=== PATIENT | female | born 1955 | race African-American/Black ===

== ENCOUNTER → 2017-01-02 | Outpatient (CLI) | payer OTHER ==
[~2017-01-02] MED LIST: AMLO-147 PO; ASPI-664 PO; BUPR1PAT10 TD; DOCU-144 PO; FOLI-49 PO; GABA-526 PO; HYDR-762 PO; HYDR25TA6 PO; LEVO500T72 PO; TOPI50TA5 PO
--- NOTE | 2017-01-02 17:56 | RADRPT ---
PROCEDURE: XR Right Foot. CLINICAL INDICATION: Right foot pain. TECHNIQUE: Three views. Frontal, lateral, and oblique. COMPARISON: None. FINDINGS: There has been amputation through the second metatarsal phalangeal joint and fourth metatarsal phala ngeal joint with absence of the second and fourth toes. There has been prior surgery of the first m etatarsal with 2 screws and extensive callus formation and mild deformity. There is hammertoe defor mity of the first and third toes. There is no fracture or dislocation. There is diffuse soft tissue swelling. The articular surfaces are intact. There is a plantar calcaneal spur. There is no lytic or blastic lesion. IMPRESSION: 1. Amputation of the second and fourth toes. 2. Prior surgery of the first metatarsal. 3. Hammertoe deformity of the first and third toes. 4. Diffuse soft tissue swelling. 5. Plantar calcaneal spur. 6. No lytic lesion. RPTAT: QQ .Mayur Dash MD, MD Date Time Electronically viewed and signed by .Mayur Dash MD, on 01/02/2017 17:56 .R/
--- NOTE | 2017-01-02 17:57 | RADRPT ---
PROCEDURE: XR Right Ankle. CLINICAL INDICATION: Right ankle pain. TECHNIQUE: 3 views. Frontal, lateral, and oblique. COMPARISON: None. FINDINGS: There is no fracture or dislocation. There is diffuse soft tissue swelling. There is a plantar calcaneal spur. Articular surfaces are intact. There is no lytic or blastic lesion. There is no radiopaque foreign body. IMPRESSION: 1. Diffuse soft tissue swelling. 2. Plantar calcaneal spur. 3. Otherwise normal images of the right ankle. RPTAT: QQ .Mayur Dash MD, MD Date Time Electronically viewed and signed by .Mayur Dash MD, MD on 01/02/2017 17:57 .R/
== END | disposition home or self-care (01) ==
LOC: RAD 13:06
PROVIDERS: ATTEND Podiatrist Foot & Ankle Surgery
DX: M25.571 Pain in right ankle and joints of right foot (principal); M77.31 Calcaneal spur, right foot; M79.671 Pain in right foot
CPT/HCPCS: 73630

== ENCOUNTER 2017-02-18 11:15 | Inpatient (IN) | payer OTHER ==
[~2017-02-18] VITALS: Ht 170.2 cm; Wt 70.0 kg
--- NOTE | 2017-02-18 12:35 | ERD ---
ER Documentation Chief Complaint Date/Time DATE: 02/18/17 TIME: 12:31 Chief Complaint r. "foot infection", hx of cancer w low wbc count, mask provided HPI Patient is a 61-year-old female with history of metastatic breast cancer on chemotherapy, with history of amputation of second and fourth toes on the right foot due to osteomyelitis several years ago, who presents with 3 weeks of skin changes to the right third toe. She states that initially there is an area that appeared black, and the nail appeared to be from the nail bed. She reports that there is a small amount of purulent drainage. She was treated for 1 week with antibiotics, and states that the toe was improving, but now states that it appears to not be continuing to improve. She denies fever, denies discharge for the last week. She denies pain. She is being followed by a volleyball assembler who she last saw 1 month ago. She does not currently have a follow -up appointment scheduled. ROS All systems reviewed and are negative except as per history of present illness. Medications Home Meds Reported Medications Letrozole* (Letrozole*) 2.5 Mg Tablet, 2.5 MG PO DAILY, TAB 02/18/17 Palbociclib (Ibrance) 75 Mg Capsule, 75 MG PO DAILY, #21 02/18/17 Fentanyl Patch* (Duragesic Patch*) 75 Mcg/Hr Transdermal Patch, 1 PATCH TD Q72H , PATCH 02/18/17 Aspirin* (Aspirin* EC) 81 Mg Tablet.dr, 81 MG PO DAILY, TAB 06/10/16 Amlodipine Besylate* (Amlodipine Besylate*) 10 Mg Tablet, 10 MG PO DAILY 07/21/11 Discontinued Reported Medications Topiramate* (Topiramate*) 50 Mg Tablet, 50 MG PO QPM, TAB 06/10/16 Buprenorphine (Butrans) 1 Each Patch.tdwk, 1 EACH TD WEEKLY 06/10/16 Folic Acid* (Folic Acid*) 1 Mg Tablet, 1 MG PO DAILY, TAB 06/10/16 Hydrochlorothiazide (Hydrochlorothiazide) 25 Mg Tablet, 25 MG PO DAILY, TAB 08/19/14 Gabapentin* (Gabapentin*) 600 Mg Tablet, 1200 MG PO TID 07/21/11 Discontinued Scripts Docusate Sodium* (Colace*) 100 Mg Capsule, 100 MG PO DAILY, #30 CAP Hold for diarrhea Prov:SANTOS BLAIR [employer]INA SUBSPECIALIST 06/19/16 Hydrocodone Bit-Acetaminophen* ([place]*) 10-325 Mg Tablet, 1 TAB PO Q6H Y for PAIN, #40 TAB Prov:SANTOS BLAIR RET[employer] SUBSPECIALIST 06/19/16 Levofloxacin* (Levaquin*) 500 Mg Tablet, 500 MG PO DAILY@06 for 60 Days, TAB Prov:SANTOS BLAIR RETINA SUBSPECIALIST 06/19/16 Allergies Allergies: Coded Allergies: Penicillins (Verified Allergy, Unknown, SWELLING, 02/18/17) PMhx/Soc Past medical history: Metastatic breast cancer, osteomyelitis of the right foot , hypertension Past surgical history: Amputation of right second and third toes, mastectomy Social history: No alcohol or tobacco History of Surgery: Yes (BREAST CA met to liver,toe amputations ) Anesthesia Reaction: No Hx Neurological Disorder: No Hx Respiratory Disorders: No Hx Cardiac Disorders: Yes (HTN, CHV) Hx Psychiatric Problems: No Hx Miscellaneous Medical Probl: No Hx Alcohol Use: No Hx Substance Use: No Hx Tobacco Use: No Smoking Status: Never smoker FmHx Family History: No coronary disease, No diabetes Physical Exam Vitals Vital Signs Date Time Temp Pulse Resp B/P Pulse Ox O2 Delivery O2 Flow Rate FiO2 02/18/17 20:15 69 19 138/87 100 Room Air 02/18/17 18:35 79 18 169/96 99 Room Air 02/18/17 15:30 106 20 174/64 98 Mask 02/18/17 13:30 104 20 105/64 100 Mask 02/18/17 11:24 97.1 99 20 181/87 100 Physical Exam Const: Alert, no acute distress Head: Atraumatic Eyes: Normal Conjunctiva, no pallor, no icterus ENT: Normal External Ears, Nose and Mouth. Moist mucous membranes Neck: Full range of motion. No meningismus. Resp: Clear to auscultation bilaterally, no wheeze, no rales Cardio: Regular rate and rhythm, no murmurs Abd: Soft, non tender, non distended. Skin: No petechiae or rashes Back: No midline or flank tenderness Ext: No cyanosis, or edema. Amputation of second and fourth digits of the right foot, third digit with thickened nail slight skin color change to the distal pad, abrasion of skin to the dorsal proximal digit. No erythema, no edema, no signs of gangrene, no eschar, no discharge. No warmth. 2+ DP pulse. Neur: Awake and alert, cranial nerves II through XII intact bilaterally. Psych: Normal Mood and Affect Result Diagram: 02/18/17 1700 02/18/17 1315 Results 24 hrs Laboratory Tests Test 02/18/17 13:15 02/18/17 17:00 Erythrocyte Sedimentation Rate 20mm/Hr Prothrombin Time 12.7Sec Prothrombin Time Ratio 1.0 INR International Normalized Ratio 0.95 Activated Partial Thromboplast Time 28.6Sec Sodium Level 141mmol/L Potassium Level 4.3mmol/L Chloride Level 103mmol/L Carbon Dioxide Level 30mmol/L Anion Gap 12 Blood Urea Nitrogen 8mg/dl Creatinine 0.58mg/dl Glucose Level 120mg/dl Calcium Level 9.1mg/dl White Blood Count 1.710^3/ul Red Blood Count 3.9910^6/ul Hemoglobin 12.8g/dl Hematocrit 37.4% Mean Corpuscular Volume 93.7fl Mean Corpuscular Hemoglobin 32.1pg Mean Corpuscular Hemoglobin Concent 34.2g/dl Red Cell Distribution Width 13.4% Platelet Count 7410^3/UL Mean Platelet Volume 9.9fl Neutrophils % 46.0% Lymphocytes % 47.0% Monocytes % 6.0% Basophils % 1.0% Neutrophils # 0.810^3/ul Lymphocytes # 0.810^3/ul Monocytes # 0.110^3/ul Basophils # 0.010^3/ul Platelet Estimate PLT APPEAR DECREASED Large Platelets OCCASIONAL Macrocytosis FEW Current Medications Medications (Trade) Dose Ordered Sig/Salvador Route PRN Reason Start Time Stop Time Status Last Admin Dose Admin Oxycodone/ Acetaminophen (Percocet (5/ 325)) 1 tab ONCE ONCE PO 02/18/17 20:30 02/18/17 20:31 DC 02/18/17 20:25 Lidocaine (Xylocaine 1% (Mpf)) 5 ml ONCE ONCE SC 02/18/17 21:00 02/18/17 21:01 Procedures/MDM MDM: Patient is a 61-year-old female with history of peripheral neuropathy due to chemotherapy, history of amputation of second and fourth toes on the right foot due to osteomyelitis. She reports skin changes to the third toe for the last 3 weeks. She was treated with a course of oral antibiotics, but did not improve. There is no fever or signs of cellulitis on exam. ESR is not elevated , but x-ray was suggestive of osteomyelitis, so MRI was performed and confirms the diagnosis. This is likely a subacute or chronic osteomyelitis given the time course and appearance on exam. The patient was difficult to obtain IV access on due to thick skin, small blood vessels, proximity to artery, and lymphedema of the right arm. Attempts were made to place an ultrasound-guided peripheral line in the ER, but was unsuccessful. The patient will be admitted for further workup and treatment, will likely need PICC line for IV antibiotics , and may require amputation of the digit. Care was endorsed to Dr. Worley who will speak with the admitting physician. Departure Diagnosis: Primary Impression: Osteomyelitis of toe of right foot Additional Impressions: Leukopenia Leukopenia type: unspecified Qualified Code: D72.819 - Leukopenia, unspecified type Thrombocytopenia Condition: Stable KATRINA CASTRO MD Feb 18, 2017 12:35
[2017-02-18] MEDS ORDERED: PALB75CA PO (12:56)
[2017-02-18] MEDS ORDERED: DUR75P TD (12:56)
[2017-02-18] MEDS ORDERED: LETR2.5T PO (13:06)
--- NOTE | 2017-02-18 13:27 | RADRPT ---
PROCEDURE: XR Right Third Toe. CLINICAL INDICATION: Right third toe pain. Osteomyelitis. TECHNIQUE: Three views of the the right third toe are available for review COMPARISON: Right foot radiographs dated 01/02/2017. FINDINGS: There is lysis of the terminal tuft of the third distal phalanx consistent with osteomyelitis. Ther e has been amputation of the second and fourth toes. There is diffuse soft tissue swelling of the third toe. The soft tissues are otherwise normal. Articular surfaces are intact. There is no radiopaque foreign body. IMPRESSION: 1. Lysis of the terminal tuft of the third distal phalanx consistent with osteomyelitis. Overlying soft tissue swelling. 2. Amputation of the second and fourth toes. RPTAT: QQ .Mayur Dash MD, MD Date Time Electronically viewed and signed by .Mayur Dash MD, on 02/18/2017 13:27 .R/
[2017-02-18 14:12] LABS: ADD SCAN DIFF NO
[2017-02-18 14:17] LABS: INR 0.95; PROTIME 12.7 Sec (12.2-14.2)
[2017-02-18 14:18] LABS: PARTIAL THROMBOPLASTIN TIME 28.6 Sec (25.0-35.0)
[2017-02-18 14:22] LABS: CALCIUM 9.1 mg/dl (8.4-10.2); CREATININE 0.58 mg/dl (0.44-1.00); POTASSIUM 4.3 mmol/L (3.5-5.1)
[2017-02-18 15:48] LABS: ABNORMAL IP MESSAGE 1; HEMATOCRIT 37.4 % (37.0-47.0); HEMOGLOBIN 12.8 g/dl (12.0-16.0); MEAN CORPUSCULAR HEMOGLOBIN 32.1 pg (29.0-33.0); MEAN CORPUSCULAR HGB CONC 34.2 g/dl (32.0-37.0); MEAN CORPUSCULAR VOLUME 93.7 fl (82.0-101.0); MEAN PLATELET VOLUME 9.9 fl (7.4-10.4); RED BLOOD COUNT 3.99 10^6/ul (4.20-5.40); RED CELL DISTRIBUTION WIDTH 13.4 % (11.5-14.5)
[2017-02-18 17:32] LABS: LYMPHOCYTES # 0.8 10^3/ul (0.8-2.9); MONOCYTE # 0.1 10^3/ul (0.3-0.9); NEUTROPHIL # 0.8 10^3/ul (1.6-7.5)
[2017-02-18 17:47] LABS: PLATELET ESTIMATE PLT APPEAR DECREASED
--- NOTE | 2017-02-18 20:11 | RADRPT ---
PROCEDURE: MR right foot. CLINICAL INDICATION: Pain and swelling. Clinical concern for osteomyelitis TECHNIQUE: 1.5 Paola scanner: Sagittal T1/inversion recovery, coronal T1/proton-density fat satura tion, axial T1/proton-density fat saturation. Examination is dedicated to evaluating the right foref oot COMPARISON: X-ray series 02/18/2017. FINDINGS: Osseous structures: The visualized tarsal bones demonstrate severe osteoarthrosis involving the mid foot between the middle and lateral cuneiforms in the bases of the second and third metatarsals. Th e visualized cuboid and navicular bones are intact. The metatarsal of the great toe demonstrates po stoperative change with susceptibility artifact consistent with hardware, hallux valgus deformity an d severe narrowing of the metatarsal phalangeal joint of the great toe and interphalangeal joint of this digit are present. Degenerative narrowing between the first metatarsal head and the sesamoid galo michael is moderate to severe. The second metatarsal is intact with amputation of the second phalanges a gain seen. The third metatarsal is intact with degenerative narrowing of the metatarsal phalangeal and proximal interphalangeal joints. The most striking finding is abnormal cortical irregularity an d truncation involving the third distal phalanx with low at T1 and high T2 signal consistent with bone marrow edema, the bony destruction corresponding to the x-ray findings The middle phalanx has normal signal intensity and distal interphalangeal joint shows no evidence of hyperintense fluid. G roove the fourth metatarsal appears intact, the fourth phalanges have been surgically resected. The right fifth metatarsal and fifth phalanges demonstrate normal signal intensity. Soft tissues: Hyperintense T1 signal involving the intrinsic muscular the foot is most likely relat ed to chronic atrophy. There is some hyperintense T2 signal within the plantar soft tissues predomi nately at the third digit, the dorsal metatarsal. There is additional subcutaneous edema, bright T2 signal, surrounding the distal phalanx of the third toe. There is no subcutaneous collection to roldan ggest an abscess. No obvious ligament or tendinous tears are identified. RPTAT:HJJR IMPRESSION: 1. Abnormal bone marrow edema and bony destruction involving the third distal phalanx of the right foot consistent with osteomyelitis with surrounding cellulitis but no evidence of extension into the distal interphalangeal joint or third middle phalanx. 2. No other areas of osteomyelitis are demonstrated. 3. Severe dorsal midfoot osteoarthrosis between the cuneiforms and metatarsal bases. 4. Postoperative changes of the first metatarsal consistent with prior osteotomy and hardware place ment with degenerative narrowing of the metatarsal phalangeal interphalangeal joints of the great to e as well as between the metatarsal head and the sesamoid bones. 5. Generalized fatty replacement of the intrinsic foot musculature consistent with severe atrophy. 6. No evidence of subcutaneous abscess. 7. Previous resection involving the phalanges of the second and fourth digits. Physician Joey Date Time Electronically viewed and signed by Physician Joey on 02/18/2017 20:11 JR/
[2017-02-18] MEDS ORDERED: OXYCODONE/ACETAMINOPHEN (5/325) TAB PO ONE (20:30)
[2017-02-18] MEDS ORDERED: CLINDAMYCIN 300 MG INJ IM ONE (21:00)
[2017-02-18] MEDS ORDERED: ACETAMINOPHEN 325 MG TAB PO PRN ×2 (21:00→23:30)
[2017-02-18] MEDS ORDERED: LIDOCAINE 1% (MPF) 5 ML VIAL SC ONE (21:00)
[2017-02-18] MEDS ORDERED: ONDANSETRON 4 MG INJ IV PRN ×2 (21:00→23:30)
[2017-02-18 21:30] VITALS: Ht 170.2 cm; Wt 70.0 kg
[2017-02-18 21:45] VITALS: BP 134/89; PULSE 98; RESP 18
[2017-02-18] MEDS ORDERED: VANCOMYCIN IV PER PHARMACY XX SCH (23:30)
[2017-02-19] MEDS: OXYCODONE/ACETAMINOPHEN (10/325) TAB PO PRN ×2 (03:49→09:26)
[2017-02-19 05:28] LABS: ADD SCAN DIFF NO
[2017-02-19 05:37] LABS: ABNORMAL IP MESSAGE 1; HEMATOCRIT 35.5 % (37.0-47.0); HEMOGLOBIN 11.8 g/dl (12.0-16.0); MEAN CORPUSCULAR HEMOGLOBIN 31.6 pg (29.0-33.0); MEAN CORPUSCULAR HGB CONC 33.2 g/dl (32.0-37.0); MEAN CORPUSCULAR VOLUME 95.2 fl (82.0-101.0); MEAN PLATELET VOLUME 10.9 fl (7.4-10.4); PLATELET COUNT 72 10^3/UL (140-415); RED BLOOD COUNT 3.73 10^6/ul (4.20-5.40); RED CELL DISTRIBUTION WIDTH 13.5 % (11.5-14.5); WHITE BLOOD COUNT 1.5 10^3/ul (4.8-10.8)
[2017-02-19 05:46] LABS: ALBUMIN 3.9 g/dl (3.3-4.9); ALBUMIN/GLOBULIN RATIO 1.02; BILIRUBIN,INDIRECT 0.6 mg/dl (0-1.1); BILIRUBIN,TOTAL 0.6 mg/dl (0.2-1.3); CALCIUM 8.9 mg/dl (8.4-10.2); CREATININE 0.62 mg/dl (0.44-1.00); POTASSIUM 3.5 mmol/L (3.5-5.1); TOTAL PROTEIN 7.7 g/dl (6.1-8.1)
--- NOTE | 2017-02-19 07:00 | HP ---
Date/Time of Note Date/Time of Note DATE: 02/19/17 TIME: 06:51 Assessment/Plan VTE Prophylaxis VTE Prophylaxis Intervention: heparin Lines/Catheters Urinary Cath still in place: No Assessment/Plan Assessment/Plan 1. Right Third Phalax osteomyelitis - Broad spectrum abx. note pt is allergic to PCN - Ortho and ID consult - Pain mgmt 2. Metastatic Breast Cancer: on chemo - cont out pt f/u. Will notify Oncologist 3. HTN: not at goal - Cont med and adjust as needed 4. Neuropenia - Precaution - neupogen 5. Thrombocytopenia - No sign of active bleeding - transfuse as needed, especially if plan for surgical intervention HPI/ROS Admit Date/Time Admit Date/Time Feb 18, 2017 at 20:42 Hx of Present Illness Patient is a 61-year-old female with history of HTN, DL, lower ext Osteo, metastatic breast cancer on chemotherapy, with history of amputation of second and fourth toes on the right foot due to osteomyelitis several years ago, who presents with 3 weeks of skin changes to the right third toe. She states that initially there is an area that appeared black, and the nail appeared to be from the nail bed. She reports that there is a small amount of purulent drainage. She was treated for 1 week with antibiotics, and states that the toe was improving, but now states that it appears to not be continuing to improve. She denies fever, denies discharge for the last week. She denies pain. She is being followed by a line patroller who she last saw 1 month ago. IN ER, MRI showed, osteomyelitis of third phalax of right foot. PMH/Family/Social Past Medical History Medical History: high cholesterol, hypertension Past Surgical History Past Surgical Hx: other (toe amputations) Social History Alcohol Use: none Smoking Status: Never smoker Drug Use: none Exam/Review of Systems Vital Signs Vitals Vital Signs Date Time Temp Pulse Resp B/P Pulse Ox O2 Delivery O2 Flow Rate FiO2 02/18/17 21:45 98.2 98 18 134/89 Room Air 02/18/17 21:07 100 Intake and Output 02/18/17 02/18/17 02/19/17 14:59 22:59 06:59 Intake Total 120 ml Balance 120 ml Exam Constitutional: alert, oriented, well developed Eyes: EOMI, PERRL Respiratory: clear to auscultation, normal air movement Cardiovascular: nl pulses, regular rate and rhythm Gastrointestinal: non-tender, soft Extremities: other (Amputation of second and fourth digits of the right foot, third digit with thickened nail slight skin color change to the distal pad, abrasion of skin to the dorsal proximal digit. No erythema, no edema, no signs of gangrene, no eschar, no discharge) Labs Result Diagram: 02/19/17 0455 02/19/17 0455 Medications Medications Current Medications Fentanyl (Duragesic 75 Mcg/Hr Patch) 1 patch Q72H TRANSDERM ; Start 02/19/17 at 09:00 Oxycodone/ Acetaminophen (Endocet (10/ 325)) 1 tab Q6H PRN PO PAIN Last administered on 02/19/17t 03:49; Admin Dose 1 TAB; Start 02/18/17 at 23:30 Amlodipine Besylate (Norvasc) 10 mg DAILY PO ; Start 02/19/17 at 09:00 Letrozole (Femara) 2.5 mg DAILY PO ; Start 02/19/17 at 09:00 Ondansetron HCl (Zofran Inj) 4 mg Q6H PRN IV NAUSEA AND/OR VOMITING; Start 10/25 at 23:30 Heparin Sodium (Porcine) (Heparin (5000 Units/0.5 ml)) 5,000 unit BID SC ; Start 02/19/17 at 09:00 Morphine Sulfate (morphine) 3 mg Q4H PRN IV PAIN; Start 02/18/17 at 23:30 Acetaminophen 650 mg 650 mg Q6H PRN PO PAIN AND OR ELEVATED TEMP; Start at 23:30 Aztreonam (Azactam 1gm/NS (Pmx)) 50 ml @ 100 mls/hr Q8 IVPB ; Start 02/19/17 at 14:00 EDMAR JARQUIN MD Feb 19, 2017 07:00
[2017-02-19 08:27] VITALS: BP 149/77; RESP 16
[2017-02-19] MEDS: AMLODIPINE 10 MG TAB PO SCH (08:54)
[2017-02-19] MEDS: HEPARIN 5,000 UNIT/0.5 ML VIAL SC SCH ×2 (08:55→21:00)
[2017-02-19] MEDS ORDERED: FENTAnyl PATCH 75 MCG/HR TRANSDERM SCH (09:00)
[2017-02-19] MEDS: LETROZOLE 2.5 MG TAB PO SCH (09:08)
[2017-02-19] MEDS ORDERED: LIDOCAINE 1% (MPF) 5 ML VIAL SC ONE (10:00)
[2017-02-19] MEDS ORDERED: ALPRAZOLAM 0.25 MG TAB PO ONE (10:54)
[2017-02-19] MEDS ORDERED: LORAZEPAM 2 MG INJ IV ONE (11:00)
--- NOTE | 2017-02-19 11:31 | PN ---
Date/Time of Note Date/Time of Note DATE: 02/19/17 TIME: 11: Assessment/Plan VTE Prophylaxis VTE Prophylaxis Intervention: contraindicated (Potential surgery amputation potential surgery amputation) Lines/Catheters Urinary Cath still in place: No Assessment/Plan Chief Complaint/Hosp Course S: 02/19 Rt 3rd toe pain recent infection. No generalized toxicity. No recent injury. Has chr neuropathy-possibly post chemo. Recently stopped 1 of her chemo' s due to pancytopenia. Still on the other. O: Vss sr PE No pallor adenopathy Regr no murmur rub CTAB Bs + nt nd, no r/r/g No edema. Chr neuropathy. Rt 2/4 amp status; 3rd toe probable OM. A/P 1. Rt 3rd toe probable OM. 6 wks atb's/PICC vs amp. Stable check w podiatry/ID. 2. Chr neuropathy 3. Metastatic recurrent rest Ca. Chemo if performance status is stable. 4. Immune status questionable. May need to hold chemo 5. Past tobacco/ etoh? 6. Possible PAD 7. Anemia 8. Chr htn/DL 9. Leukopenia, watch for neutropenia Problems: Exam/Review of Systems Vital Signs Vitals Vital Signs Date Time Temp Pulse Resp B/P Pulse Ox O2 Delivery O2 Flow Rate FiO2 02/19/17 08:27 98.1 88 16 149/77 97 02/18/17 21:45 Room Air Intake and Output 02/18/17 02/18/17 02/19/17 15:00 23:00 07:00 Intake Total 120 ml Balance 120 ml Results Result Diagram: 02/19/17 0455 02/19/17 0455 Results 24 hrs Laboratory Tests Test 02/18/17 13:15 02/18/17 17:00 02/19/17 04:55 Erythrocyte Sedimentation Rate 20 Prothrombin Time 12.7 Prothrombin Time Ratio 1.0 INR International Normalized Ratio 0.95 Activated Partial Thromboplast Time 28.6 Sodium Level 141 138 Potassium Level 4.3 3.5 Chloride Level 103 102 Carbon Dioxide Level 30 30 Anion Gap 12 10 Blood Urea Nitrogen 8 7 Creatinine 0.58 0.62 Glucose Level 120 96 Calcium Level 9.1 8.9 White Blood Count 1.7 #L 1.5 L Red Blood Count 3.99 L 3.73 L Hemoglobin 12.8 11.8 L Hematocrit 37.4 35.5 L Mean Corpuscular Volume 93.7 95.2 Mean Corpuscular Hemoglobin 32.1 31.6 Mean Corpuscular Hemoglobin Concent 34.2 33.2 Red Cell Distribution Width 13.4 13.5 Platelet Count 74 L 72 L Mean Platelet Volume 9.9 # 10.9 H Neutrophils % 46.0 Lymphocytes % 47.0 Monocytes % 6.0 Basophils % 1.0 Neutrophils # 0.8 L Lymphocytes # 0.8 Monocytes # 0.1 L Basophils # 0.0 Platelet Estimate PLT APPEAR DECREASED Large Platelets OCCASIONAL Macrocytosis FEW Total Bilirubin 0.6 Direct Bilirubin 0.00 Indirect Bilirubin 0.6 Aspartate Amino Transf (AST/SGOT) 120 H Alanine Aminotransferase (ALT/SGPT) 46 Alkaline Phosphatase 93 Total Protein 7.7 Albumin 3.9 Globulin 3.80 H Albumin/Globulin Ratio 1.02 Medications Medications Current Medications Fentanyl (Duragesic 75 Mcg/Hr Patch) 1 patch Q72H TRANSDERM Last administered on 02/19/17 08:54; Admin Dose 1 PATCH; Start 02/19/17 at 09:00 Oxycodone/ Acetaminophen (Endocet (10/ 325)) 1 tab Q6H PRN PO PAIN Last administered on 02/19/17 09:26; Admin Dose 1 TAB; Start 02/18/17 at 23:30 Amlodipine Besylate (Norvasc) 10 mg DAILY PO Last administered on 02/19/17 08: 54; Admin Dose 10 MG; Start 02/19/17 at 09:00 Letrozole (Femara) 2.5 mg DAILY PO Last administered on 02/19/17 09:08; Admin Dose 2.5 MG; Start 02/19/17 at 09:00 Ondansetron HCl (Zofran Inj) 4 mg Q6H PRN IV NAUSEA AND/OR VOMITING; Start 10/25 at 23:30 Heparin Sodium (Porcine) (Heparin (5000 Units/0.5 ml)) 5,000 unit BID SC ; Start 02/19/17 at 09:00 Morphine Sulfate (morphine) 3 mg Q4H PRN IV PAIN; Start 02/18/17 at 23:30 Acetaminophen 650 mg 650 mg Q6H PRN PO PAIN AND OR ELEVATED TEMP; Start at 23:30 Aztreonam 50 ml @ 100 mls/hr Q8 IVPB ; Start 02/19/17 at 14:00 Vancomycin HCl/ Sodium Chloride (Vancocin/NS) 250 ml @ 83.333 mls/ hr ONCE IVPB ; Start 02/19/17 at 14:00; Stop 02/19/17 at 23:00 PANCHITO DOMÍNGUEZ MD Feb 19, 2017 11:31
[2017-02-19 13:45] LABS: LYMPHOCYTES # 1.3 10^3/ul (0.8-2.9); NEUTROPHIL # 0.2 10^3/ul (1.6-7.5)
[2017-02-19] MEDS: AZTREONAM 1 GM/NS (PMX) 50 ML IVPB SCH ×2 (14:00→21:25)
[2017-02-19] MEDS ORDERED: VANCOMYCIN 1.5 GM in SOD CHLORIDE 0.9% 250 ML IVPB SCH (14:00)
--- NOTE | 2017-02-19 15:14 | CONS ---
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 She now is admitted with third distal right phalanx osteomyelitis. - Tumor markers have decreased/stabilized and patient had treatment response as of CT scan 10/10/16. She was unable to tolerate PET/CT as an outpatient so plan was to repeat scan with Ativan. Will obtain CT CAP with contrast now that patient is in house, may require ativan prior once IV access has been obtained - Will repeat tumor markers - May continue etrozole while in house as letrozole should not contribute to neutropenia. - Agree with neupogen given neutropenia with osteomyelitis - Continue broad spectrum antibiotics per primary team # Depression/Anxiety - If ok with primary team, would suggest treatment for depression/anxiety - Ensure TID added for nutrition given patient's poor appetite Problems: Consultation Date/Type/Reason Admit Date/Time Feb 18, 2017 at 20:42 Date of Consultation: Feb 19, 2017 Type of Consultation: Oncology Hx of Present Illness The patient is a 61 year old female well known to me with a history of stage II ER+ breast cancer status post lumpectomy, treated at [facility] with chemotherapy with TC x 4 and radiation without hormonal therapy as she declined it at that time, then was lost to follow-up, now with metastatic ER+ breast cancer to LN and liver, on Ibrance/letrozole since 07/16/17 with multiple dose reductions of ibrance (CDK 4/6 inhibitor) due to neutropenia with recent reduction in dose then cessation of Ibrance with continuation of hormonal therapy letrozole. Tumor markers have decreased/stabilized and patient had treatment response as of CT scan 10/10/16. She was unable to tolerate PET/CT as an outpatient so plan was to repeat scan with Ativan. She now is admitted with third distal right phalanx osteomyelitis. Recently the patient has endorsed more anxiety and feeling low/depressed with decreased appetite and hopelessness. Past Medical History Medical History: high cholesterol, hypertension Past Surgical History Past Surgical Hx: other (toe amputations) Social History Alcohol Use: none Smoking Status: Never smoker Drug Use: none Exam/Review of Systems Vital Signs Vitals Vital Signs Date Time Temp Pulse Resp B/P Pulse Ox O2 Delivery O2 Flow Rate FiO2 02/19/17 08:27 98.1 88 16 149/77 97 02/18/17 21:45 Room Air Intake and Output 02/18/17 02/18/17 02/19/17 15:00 23:00 07:00 Intake Total 120 ml Balance 120 ml Exam Constitutional: alert, oriented Psych: no complaints Head: normocephalic Eyes: nl conjunctiva Neck: supple Respiratory: clear to auscultation Cardiovascular: regular rate and rhythm Gastrointestinal: non-tender, soft Neurological: RENTAL CAR FERRY DRIVER II-XII intact Results Result Diagram: 02/19/17 0455 02/19/17 0455 Results 24 hrs Laboratory Tests Test 02/18/17 17:00 02/19/17 04:55 White Blood Count 1.7 #L 1.5 L Red Blood Count 3.99 L 3.73 L Hemoglobin 12.8 11.8 L Hematocrit 37.4 35.5 L Mean Corpuscular Volume 93.7 95.2 Mean Corpuscular Hemoglobin 32.1 31.6 Mean Corpuscular Hemoglobin Concent 34.2 33.2 Red Cell Distribution Width 13.4 13.5 Platelet Count 74 L 72 L Mean Platelet Volume 9.9 # 10.9 H Neutrophils % 46.0 14.0 L Lymphocytes % 47.0 84.0 H Monocytes % 6.0 2.0 Basophils % 1.0 Neutrophils # 0.8 L 0.2 L Lymphocytes # 0.8 1.3 Monocytes # 0.1 L 0.0 L Basophils # 0.0 Platelet Estimate PLT APPEAR DECREASED Large Platelets OCCASIONAL 1+ Macrocytosis FEW Nucleated Red Blood Cells % 4.0 H Sodium Level 138 Potassium Level 3.5 Chloride Level 102 Carbon Dioxide Level 30 Anion Gap 10 Blood Urea Nitrogen 7 Creatinine 0.62 Glucose Level 96 Calcium Level 8.9 Total Bilirubin 0.6 Direct Bilirubin 0.00 Indirect Bilirubin 0.6 Aspartate Amino Transf (AST/SGOT) 120 H Alanine Aminotransferase (ALT/SGPT) 46 Alkaline Phosphatase 93 Total Protein 7.7 Albumin 3.9 Globulin 3.80 H Albumin/Globulin Ratio 1.02 Medications Medications Current Medications Fentanyl (Duragesic 75 Mcg/Hr Patch) 1 patch Q72H TRANSDERM Last administered on 02/19/17 08:54; Admin Dose 1 PATCH; Start 02/19/17 at 09:00 Oxycodone/ Acetaminophen (Endocet (10/ 325)) 1 tab Q6H PRN PO PAIN Last administered on 02/19/17 09:26; Admin Dose 1 TAB; Start 02/18/17 at 23:30 Amlodipine Besylate (Norvasc) 10 mg DAILY PO Last administered on 02/19/17 08: 54; Admin Dose 10 MG; Start 02/19/17 at 09:00 Letrozole (Femara) 2.5 mg DAILY PO Last administered on 02/19/17 09:08; Admin Dose 2.5 MG; Start 02/19/17 at 09:00 Ondansetron HCl (Zofran Inj) 4 mg Q6H PRN IV NAUSEA AND/OR VOMITING; Start 10/25 at 23:30 Heparin Sodium (Porcine) (Heparin (5000 Units/0.5 ml)) 5,000 unit BID SC ; Start 02/19/17 at 09:00 Morphine Sulfate (morphine) 3 mg Q4H PRN IV PAIN; Start 02/18/17 at 23:30 Acetaminophen 650 mg 650 mg Q6H PRN PO PAIN AND OR ELEVATED TEMP; Start at 23:30 Aztreonam 50 ml @ 100 mls/hr Q8 IVPB ; Start 02/19/17 at 14:00 Vancomycin HCl 1.5 gm/Sodium Chloride 250 ml @ 83.333 mls/ hr ONCE IVPB ; Start 02/19/17 at 14:00; Stop 02/19/17 at 23:00 Vancomycin HCl (Vancocin) 250 ml @ 125 mls/hr Q12H IVPB ; Start 02/20/17 at 02: 00 Alprazolam (Xanax) 0.25 mg BID PO ; Start 02/19/17 at 21:00 Clonidine (Catapres) 0.1 mg Q4H PRN PO ELEVATED SYSTOLIC BP; Start 02/19/17 at 12:00 CARLEEN IZAGUIRRE MD Feb 19, 2017 15:14
--- NOTE | 2017-02-19 15:53 | RADRPT ---
PROCEDURE: Ultrasound guidance for placement of needle in left upper extremity vein. CLINICAL INDICATION: Venous access. TECHNIQUE: Limited sonography of the left upper extremity was performed. Ultrasound images were recorded and s tored in the patient's medical record. COMPARISON: None. FINDINGS: The ultrasound images demonstrate a patent left upper extremity vein. The PICC line was inserted by the PICC line nurse. IMPRESSION: 1. Ultrasound guidance for a needle placement in a left upper extremity vein. 2. The left upper extremity vein is patent. RPTAT: QQ .Mayur Dash MD, MD Date Time Electronically viewed and signed by .Mayur Dash MD, MD on 02/19/2017 15:53 .R/
[2017-02-19] MEDS ORDERED: ALBUTEROL 0.083% (NEB) 2.5 MG/3 ML AMP HHN PRN (16:00)
[2017-02-19] MEDS ORDERED: hydrALAzine 20 MG INJ IV PRN (16:00)
--- NOTE | 2017-02-19 16:31 | CONS ---
DATE OF ADMISSION: 02/18/2017 DATE OF CONSULTATION: 02/19/2017 TYPE OF CONSULTATION: Infectious disease. REASON FOR CONSULTATION: Antibiotic management. HISTORY OF PRESENT ILLNESS: Abena Marino is a 61-year-old female with a number of problems, who co mes in now with right third phalanx osteomyelitis. Her past problems include: 1. Hypertension. 2. Lower extremity osteomyelitis. 3. Metastatic breast cancer, on chemotherapy. 4. History of amputation of the second and fourth toes on the right foot due to osteomyelitis sever al years ago. The patient now presents with 3 weeks of skin changes on the right third toe. She states that the a yaniv appeared black and the nail appeared to be from the nailbed. There is a small amount of purulent drainage. She was treated for 1 week with antibiotics and states that the toe was impr oving, but now it appears to be getting worse. On admission her white count was 1.5, H and H 11.8 a nd 35.5, platelet count 72,000. BUN and creatinine 7/0.62. ALLERGIES: PENICILLIN. Past problems as noted and include hypercholesterolemia and hypertension. PAST SURGICAL HISTORY: She has amputation of 2nd and 4th right toes. FAMILY HISTORY: Noncontributory. SOCIAL HISTORY: She does not smoke, drink or abuse drugs. MEDICATIONS: Per chart. REVIEW OF SYSTEMS: Noncontributory. PHYSICAL EXAMINATION: GENERAL: The patient is a well-developed, well-nourished female, who is alert, responsive, in no ac abby distress. VITAL SIGNS: Stable. She is afebrile. SKIN: Without generalized rash. HEENT: Within normal limits. NECK: Supple. LYMPH NODES: None palpable. CHEST: Decreased breath sounds at the bases. HEART: Without murmur or gallop. ABDOMEN: Soft, nontender, without organosplenomegaly or masses. EXTREMITIES: Amputation of the 2nd and 4th toes of the right foot. Third digit has a thickened damien l, some skin discoloration and abrasion to the skin. IMPRESSION AND PLAN: The patient was started on vancomycin and aztreonam. A foot MRI was done. MRI showed abnormal bone marrow edema, bony destruction involving the third distal phalanx of the right foot, consistent with osteomyelitis, with surrounding cellulitis, but no evidence of extension into the distal phalangeal joint of the third middle phalanx. IMPRESSION AND PLAN: We should continue her on antibiotic therapy, consider amputation of the dista l aspect of the third toe, since she has already had amputations of the second and fourth toes. I w ill dictate my findings to the hospitalist and to podiatry. I want to thank them for asking me to see this damian lady in consultation. Dictated By: ALONSO SANDERS MD, JD/BETSY Conf#: [id number] DID#: [id number]
[2017-02-19] MEDS: FILGRASTIM 480 MCG INJ SC SCH (17:56)
[2017-02-19] MEDS: ALPRAZOLAM 0.25 MG TAB PO SCH (20:59)
[2017-02-19 21:06] VITALS: BP 136/64; RESP 20
[2017-02-20] MEDS ORDERED: VANCOMYCIN 1 GM in NS 250 ML IVPB SCH (02:00)
[2017-02-20] MEDS: OXYCODONE/ACETAMINOPHEN (10/325) TAB PO PRN ×4 (02:12→22:44)
[2017-02-20] MEDS: AZTREONAM 1 GM/NS (PMX) 50 ML IVPB SCH ×3 (06:00→22:44)
[2017-02-20 06:34] LABS: ADD SCAN DIFF NO
[2017-02-20 06:49] LABS: ABNORMAL IP MESSAGE 1; HEMOGLOBIN 12.2 g/dl (12.0-16.0); MEAN CORPUSCULAR HEMOGLOBIN 32.2 pg (29.0-33.0); MEAN CORPUSCULAR HGB CONC 33.9 g/dl (32.0-37.0); MEAN PLATELET VOLUME 10.9 fl (7.4-10.4); PLATELET COUNT 65 10^3/UL (140-415); RED BLOOD COUNT 3.79 10^6/ul (4.20-5.40); RED CELL DISTRIBUTION WIDTH 13.5 % (11.5-14.5); WHITE BLOOD COUNT 6.6 10^3/ul (4.8-10.8)
[2017-02-20 06:50] LABS: INR 0.97; PROTIME 12.9 Sec (12.2-14.2)
[2017-02-20 07:06] LABS: CALCIUM 9.3 mg/dl (8.4-10.2); CREATININE 0.74 mg/dl (0.44-1.00); MAGNESIUM 1.5 mg/dl (1.7-2.5); PHOSPHORUS 3.7 mg/dl (2.5-4.9); POTASSIUM 4.1 mmol/L (3.5-5.1)
[2017-02-20 07:33] LABS: THYROID STIMULATING HORMONE 0.948 MIU/L (0.465-4.680)
[2017-02-20] MEDS ORDERED: LORAZEPAM 2 MG INJ IV ONE (08:00)
[2017-02-20 08:08] LABS: FOLATE 10.5 ng/ml (2.8-20.0)
[2017-02-20 08:35] VITALS: BP 156/83; RESP 20
[2017-02-20] MEDS: HEPARIN 5,000 UNIT/0.5 ML VIAL SC SCH ×2 (09:00→20:42)
[2017-02-20] MEDS: AMLODIPINE 10 MG TAB PO SCH (09:09)
[2017-02-20] MEDS: ALPRAZOLAM 0.25 MG TAB PO SCH ×2 (09:09→20:39)
[2017-02-20] MEDS: LETROZOLE 2.5 MG TAB PO SCH (09:10)
[2017-02-20 09:56] LABS: EOSINOPHILS # 0.1 10^3/ul (0.0-0.5); LYMPHOCYTES # 1.1 10^3/ul (0.8-2.9); MONOCYTE # 0.3 10^3/ul (0.3-0.9); NEUTROPHIL # 4.3 10^3/ul (1.6-7.5); PLATELET ESTIMATE PLT APPEAR DECREASED
[2017-02-20] MEDS ORDERED: LIDOCAINE 1% (MPF) 5 ML VIAL SC ONE (11:00)
--- NOTE | 2017-02-20 11:06 | CONS ---
DATE OF ADMISSION: 02/18/2017 DATE OF CONSULTATION: 02/20/2017 TYPE OF CONSULTATION: Vascular surgery consultation. HISTORY OF PRESENT ILLNESS: Ms. Marino is a 67-year-old morbidly obese patient with a plethora of m edical conditions who presented to us with recent findings of right upper extremity deep vein thromb osis that was diagnosed while she was at [facility]. It was identified the patient yao ving acute thrombosis of the right internal jugular vein, subclavian vein, axillary vein, brachial v ein, and basilic vein. Subsequently, the patient was started on anticoagulation and was given a pre scription to start the new medications. Unfortunately, the patient has not started it and had devel oped increase in her right upper extremity swelling and discomfort and presented to [facility] for further evaluation. REVIEW OF SYSTEMS: A 12-point review performed and negative except what is mentioned in the HPI. S he currently denies shortness of breath, chest pain, nausea, vomiting, fever, or chills. She denies right upper extremity discomfort, claudication, or rest pain. No numbness or tingling. PAST MEDICAL HISTORY: End-stage renal disease on dialysis, hypertension, diabetes, morbid obesity, legally blind, coronary artery disease, bilateral lower extremity venous insufficiency. PAST SURGICAL HISTORY: Appendectomy, right chest wall catheter that was placed last week, left uppe r extremity AV fistula and revisions. ALLERGIES: NO KNOWN DRUG ALLERGIES. FAMILY HISTORY: Diabetes and hypertension. SOCIAL HISTORY: Denies alcohol, tobacco, or illicit drug use currently. She was a previous smoker who quit about 30 years ago. PHYSICAL EXAMINATION: GENERAL: Alert and oriented x3, no apparent distress. HEENT: Normocephalic, atraumatic. Mucosa moist. NECK: Supple. No carotid bruit. PULMONARY: Clear to auscultation bilaterally. No crackles. CARDIOVASCULAR: S1, S2 present. No murmurs. ABDOMEN: Soft, nontender, nondistended. Bowel sounds positive. Significant truncal obesity and la rge pannus. LOWER EXTREMITIES: Unable to palpate the femoral pulse secondary to body habitus. Nonpalpable peda l pulse. Motor, sensory intact. Cap refill 3 to 4 seconds. No ulcers identified. The patient has large legs. RIGHT UPPER EXTREMITY: Large arm, palpable brachial pulse. Motor, sensory intact. Cap refill 2 to 3 seconds. Edema about 2+. She has venipuncture in the antecubital region. LEFT UPPER EXTREMITY: Large arm, palpable brachial pulse. Motor, sensory intact. Cap refill 2 to 3 seconds. ASSESSMENT AND PLAN: 1. Right upper extremity deep vein thrombosis. It seems the patient had developed a deep vein thro mbosis about a week ago that was diagnosed at [facility] when she had undergone her left upp er extremity AV fistula revision. The patient was recommended to start on anticoagulation, but it s eems that the patient may unfortunately have not been able to fill her prescription. At this point, there is no further vascular intervention needed. The patient can be continued on her anticoagulat ion to make sure that she continues that compliance once she is discharged. Optimize vascular statu s (BP meds, diet, nutrition, exercise, sugar control, and antiplatelet). Continue with anticoagulat ion as recommended and to follow with her vascular surgeon at the outside hospital who is Dr. Lindsay . 2. The patient has end-stage renal disease. The patient has left upper extremity AV fistula that h as adequate bruit and thrill present. Her surgical scars are well healed. No erythema or tendernes s, some minimal ecchymosis. Recommend the patient to follow with her vascular surgeon and for her f istula surveillance. Discussed findings, plan, and management with the patient. She understands. Thank you for allowing us to partake in the care of your patient. Please call with any questions. Dictated By: MARIA TERESA OSEI/BETSY Conf#: [id number] DID#: [id number]
--- NOTE | 2017-02-20 11:26 | CONS ---
DATE OF ADMISSION: 02/18/2017 DATE OF CONSULTATION: 02/20/2017 TYPE OF CONSULTATION: Vascular surgery. HISTORY OF PRESENT ILLNESS: Ms. Marino is a 61-year-old female known to our vascular surgery servnatacha ashraf from having seen us in our wound care clinic secondary to bilateral lower extremity atherosclerosi s and toe amputations. Unfortunately, the patient has returned to [facility] to recurrence of her metastatic disease of breast cancer which she is currently being treated for. In addition, the patient has presented with right third toe tissue loss and foot infection for which she is to be treated with antibiotics. At the moment, the patient denies shortness of breath , chest pain, nausea, vomiting, fever, or chills. The patient does mention that she has lost over 3 5 pounds since we had seen her back in June 2016 and that she on and off has some numbness and tin gling of the bilateral lower extremities. REVIEW OF SYSTEMS: A 12-point review performed and negative except what is mentioned in the HPI. PAST MEDICAL HISTORY: Entails cholesterol, hypertension, bilateral lower extremity atherosclerosis, peripheral neuropathy, metastatic breast cancer, original mass was in the right breast for which bert ashraf had undergone a lumpectomy and lymph node biopsies (questionable dissection. I do not have the fredrick holliday's record from [facility]). SOCIAL HISTORY: She had been a previous smoker in the past, not currently smoking. Denies alcohol or illicit drug use. FAMILY HISTORY: Positive for hypertension, hypercholesterolemia. PHYSICAL EXAMINATION: GENERAL: Alert and oriented x3, no apparent distress. HEENT: Normocephalic, atraumatic. PERRLA, EOMI. Mucosa moist. NECK: Supple. No carotid bruit. PULMONARY: Clear to auscultation bilaterally. No crackles. CARDIOVASCULAR: S1, S2 present. No murmurs. ABDOMEN: Soft, nontender, nondistended. Bowel sounds positive. EXTREMITIES: RIGHT LOWER EXTREMITY: Palpable femoral pulse, nonpalpable pedal pulse. Motor, sensory intact. Ca p refill 3 to 4 seconds. There is a previous amputation of the second and fourth toe. The third to e has tissue loss and has eschar that has developed over the tip and the surrounding erythema and te nderness. LEFT LOWER EXTREMITY: Palpable femoral pulse, nonpalpable pedal pulse. Motor, sensory intact. Cap refill 3 to 4 seconds. No ulcers; however, the first toe is a bid deformed. ASSESSMENT AND PLAN: 1. Bilateral lower extremity atherosclerosis with right lower extremity gangrene. It seems the pat ient has developed right foot infection with second toe tissue loss. We will plan to obtain bilater al lower extremity arterial duplex to evaluate her infrainguinal disease. Unfortunately, the patien t has not followed up with us from a vascular standpoint for surveillance, and we will determine if we would need to intervene from a surgical standpoint. Optimize vascular status (BP meds, nutrition , exercise, sugar control, and antiplatelet). 2. The patient has difficult access, and she has had a history of central stenosis from her previou s port placed in her left chest wall area. We will plan to have our interventional radiology place a new PICC line if possible, and if we can go ahead and schedule for a port placement. I discussed findings, plan, and management with the patient, and she understands. Thank you for allowing us to partake in the care of your patient. Please call with any questions. We will discuss further regarding her prognosis with our hematology/oncology colleagues and for any further intervention from a chemotherapy standpoint and her course of antibiotics. Dictated By: MARIA TERESA OSEI/BETSY Conf#: [id number] DID#: [id number]
--- NOTE | 2017-02-20 14:21 | RADRPT ---
PROCEDURE: US bilateral upper extremity veins. CLINICAL INDICATION: Bilateral upper extremity pain and swelling. TECHNIQUE: Multiple longitudinal and transverse images of the bilateral upper extremity venous nicholas e was obtained with kim scale and color Doppler imaging. COMPARISON: None available FINDINGS: The internal jugular, subclavian, axillary, brachial, basilic, cephalic, radial, and ulnar veins are patent bilaterally. There is normal flow with augmentation and compressibility throughout. There i s no thrombus or occlusion. The left subclavian vein is small in diameter. IMPRESSION: 1. Small diameter of left subclavian vein. 2. Otherwise unremarkable venous system of the upper extremities. No evidence of thrombus or occlu satish. RPTAT: QQ .Mayur Dash MD, MD Date Time Electronically viewed and signed by .Mayur Dash MD, on 02/20/2017 14:20 .R/
--- NOTE | 2017-02-20 14:23 | RADRPT ---
PROCEDURE: US bilateral lower extremity arteries. CLINICAL INDICATION: Bilateral leg pain. Claudication that interferes significantly with the kelin ent's lifestyle. TECHNIQUE: Multiple longitudinal and transverse images of the bilateral lower extremity arteries w ere obtained with kim scale, pulsed Doppler, and color Doppler imaging. COMPARISON: No prior studies are available for comparison. FINDINGS: Right OPTICAL GLASS ETCHER:87 cm/sec PSFA:78 cm/sec MSFA:18 cm/sec DSFA:60 cm/sec POP:51 cm/sec TRAIN ELECTRONIC TECHNICIAN:76 cm/sec DPA:31 cm/sec Left OPTICAL GLASS ETCHER:65 cm/sec PSFA:63 cm/sec MSFA:71 cm/sec DSFA:70 cm/sec POP:46 cm/sec TRAIN ELECTRONIC TECHNICIAN:53 cm/sec DPA:14 cm/sec The right ankle-brachial index is 1.4 and the left ankle-brachial index is 1.5. There is normal triphasic flow throughout the arterial system of both lower extremities. There is n o significant stenosis or occlusion. IMPRESSION: 1. Normal bilateral lower extremity arterial Doppler. RPTAT: QQ .Mayur Dash MD, MD Date Time Electronically viewed and signed by .Mayur Dash MD, on 02/20/2017 14:23 .R/
--- NOTE | 2017-02-20 16:18 | PN ---
Date/Time of Note Date/Time of Note DATE: 02/20/17 TIME: 16:17 Assessment/Plan VTE Prophylaxis VTE Prophylaxis Intervention: contraindicated VTE Contraindication Reason: bleeding (risk) Lines/Catheters Urinary Cath still in place: No Assessment/Plan Chief Complaint/Hosp Course S: 02/19 Rt 3rd toe pain recent infection. No generalized toxicity. No recent injury. Has chr neuropathy-possibly post chemo. Recently stopped 1 of her chemo' s due to pancytopenia. Still on the other. 02/20- no distress/ toxicity. iv access is an issue. O: Vss PE No pallor Regr no murmur rub CTAB Bs + nt nd, no r/r/g No edema. Chr neuropathy. Rt 2/4 amp status; 3rd toe probable OM. A/P 1. Rt 3rd toe probable OM. 6 wks atb's/PICC vs amp. Stable check w podiatry/ID. 2. Chr neuropathy 3. Metastatic recurrent rest Ca. Chemo if performance status is stable. 4. Immune status questionable. 5. Past tobacco/ etoh? 6. Possible PAD 7. Anemia 8. Chr htn/DL 9. Leukopenia, watch for neutropenia Problems: Exam/Review of Systems Vital Signs Vitals Vital Signs Date Time Temp Pulse Resp B/P Pulse Ox O2 Delivery O2 Flow Rate FiO2 02/20/17 08:35 98.6 76 20 156/83 98 02/18/17 21:45 Room Air Intake and Output 02/19/17 02/19/17 02/20/17 15:00 23:00 07:00 Intake Total 1340 ml 960 ml Balance 1340 ml 960 ml Results Result Diagram: 02/20/17 0600 02/20/17 0600 Results 24 hrs Laboratory Tests Test 02/19/17 16:38 02/20/17 06:00 Bedside Glucose 114 White Blood Count 6.6 # Red Blood Count 3.79 L Hemoglobin 12.2 Hematocrit 36.0 L Mean Corpuscular Volume 95.0 Mean Corpuscular Hemoglobin 32.2 Mean Corpuscular Hemoglobin Concent 33.9 Red Cell Distribution Width 13.5 Platelet Count 65 L Mean Platelet Volume 10.9 H Neutrophils % 65.0 Band Neutrophils % 14.0 H Lymphocytes % 16.0 Monocytes % 4.0 Eosinophils % 1.0 Neutrophils # 4.3 Lymphocytes # 1.1 Monocytes # 0.3 Eosinophils # 0.1 Platelet Estimate PLT APPEAR DECREASED Prothrombin Time 12.9 Prothrombin Time Ratio 1.0 INR International Normalized Ratio 0.97 Activated Partial Thromboplast Time 27.3 Sodium Level 139 Potassium Level 4.1 Chloride Level 104 Carbon Dioxide Level 31 Anion Gap 8 Blood Urea Nitrogen 9 Creatinine 0.74 Glucose Level 96 Hemoglobin A1c 5.2 Calcium Level 9.3 Phosphorus Level 3.7 Magnesium Level 1.5 L Folate 10.5 Thyroid Stimulating Hormone (TSH) 0.948 Medications Medications Current Medications Fentanyl (Duragesic 75 Mcg/Hr Patch) 1 patch Q72H TRANSDERM Last administered on 02/19/17 08:54; Admin Dose 1 PATCH; Start 02/19/17 at 09:00 Oxycodone/ Acetaminophen (Endocet (10/ 325)) 1 tab Q6H PRN PO PAIN Last administered on 02/20/17 15:00; Admin Dose 1 TAB; Start 02/18/17 at 23:30 Amlodipine Besylate (Norvasc) 10 mg DAILY PO Last administered on 02/20/17 09: 09; Admin Dose 10 MG; Start 02/19/17 at 09:00 Letrozole (Femara) 2.5 mg DAILY PO Last administered on 02/20/17 09:10; Admin Dose 2.5 MG; Start 02/19/17 at 09:00 Ondansetron HCl (Zofran Inj) 4 mg Q6H PRN IV NAUSEA AND/OR VOMITING; Start 10/25 at 23:30 Heparin Sodium (Porcine) (Heparin (5000 Units/0.5 ml)) 5,000 unit BID SC ; Start 02/19/17 at 09:00 Morphine Sulfate (morphine) 3 mg Q4H PRN IV PAIN; Start 02/18/17 at 23:30 Acetaminophen 650 mg 650 mg Q6H PRN PO PAIN AND OR ELEVATED TEMP; Start at 23:30 Aztreonam 50 ml @ 100 mls/hr Q8 IVPB Last administered on 02/20/17 16:06; Admin Dose 100 MLS/HR; Start 02/19/17 at 14:00 Vancomycin HCl (Vancocin) 250 ml @ 125 mls/hr Q12H IVPB ; Start 02/20/17 at 02: 00 Alprazolam (Xanax) 0.25 mg BID PO Last administered on 02/20/17 09:09; Admin Dose 0.25 MG; Start 02/19/17 at 21:00 Clonidine (Catapres) 0.1 mg Q4H PRN PO ELEVATED SYSTOLIC BP; Start 02/19/17 at 12:00 Filgrastim (Neupogen) 480 mcg DAILY@17 SC Last administered on 02/19/17 17:56 ; Admin Dose 480 MCG; Start 02/19/17 at 17:00 Hydralazine HCl (Apresoline) 5 mg Q4H PRN IV ELEVATED DIASTOLIC BP; Start 02/19 at 16:00 PANCHITO DOMÍNGUEZ MD Feb 20, 2017 16:18
[2017-02-20] MEDS: morphine 4 MG/ML VIAL IV PRN ×2 (16:26→20:46)
--- NOTE | 2017-02-20 16:39 | PN ---
DATE: 02/20/2017 SUBJECTIVE: No acute changes. The patient is lying comfortably ____. OBJECTIVE VITAL SIGNS: WBC 6.6, H and H 12.2 and 36, platelets 65, neutrophils 65, bands 14, lymphs 16, monos 4. BUN 9, creatinine 0.74. MICROBIOLOGY: Blood culture negative. DIAGNOSTICS: MRI revealed right third distal phalanx osteomyelitis with cellulitis, no evidence of abscess. ANTIMICROBIALS: The patient is on IV vancomycin and Azactam. ALLERGY: PENICILLIN. PHYSICAL EXAMINATION: GENERAL: Well-developed, obese, elderly woman who is in no distress. HEENT: Head atraumatic, normocephalic. Sclerae anicteric. Buccal mucosa dry. NECK: Supple, trachea midline. CHEST: Rise symmetrical. Breath sounds diminished. HEART: S1, S2. ABDOMEN: Soft, bowel sounds present. EXTREMITIES: Without cyanosis. ASSESSMENT: 1. Right third phalanx osteomyelitis. 2. Metastatic breast carcinoma and chemo. 3. Peripheral vascular disease. 4. Hypertension. 5. Resolving neutropenia. PLAN: The patient remains stable. We will continue her on current regimen with the antibiotics. S he is being followed by vascular team and oncology. We will follow their recommendations. May need toe amputation. Dictated By: KIERRA WALKER SPIKE MAKER for ALONSO FIGUEROA/BETSY Conf#: [id number] DID#: [id number]
[2017-02-20] MEDS ORDERED: VANCOMYCIN 1.5 GM in SOD CHLORIDE 0.9% 250 ML IVPB SCH (17:00)
[2017-02-20 17:15] LABS: WHITE BLOOD COUNT 1.7 10^3/ul (4.8-10.8)
[2017-02-20 17:16] LABS: PLATELET COUNT 74 10^3/UL (140-415)
[2017-02-20] MEDS: FILGRASTIM 480 MCG INJ SC SCH (18:21)
--- NOTE | 2017-02-20 20:00 | CONS ---
Date/Time of Note Date/Time of Note DATE: 02/20/17 TIME: 20:00 Assessment/Plan Assessment/Plan Chief Complaint/Hosp Course The patient is a 61 year old female well known to me with a history of stage II ER+ breast cancer status post lumpectomy, treated at [facility] with chemotherapy with TC x 4 and radiation without hormonal therapy as she declined it at that time, then was lost to follow-up, now with metastatic ER+ breast cancer to LN and liver, on Ibrance/letrozole since 07/16/17 with multiple dose reductions of ibrance (CDK 4/6 inhibitor) due to neutropenia with recent reduction in dose then cessation of Ibrance with continuation of hormonal therapy letrozole. She now is admitted with third distal right phalanx osteomyelitis, may need toe amputation. - Tumor markers have decreased/stabilized and patient had treatment response as of CT scan 10/10/16. She was unable to tolerate PET/CT as an outpatient so plan was to repeat scan with Ativan. I had planned to obtain CT CAP with contrast while in house once IV access obtained, but dada hold off for now given patient only has one peripheral IV which she needs for IV antibiotics. - Will repeat tumor markers (pending) - May continue letrozole while in house as letrozole should not contribute to neutropenia. - Agree with neupogen given neutropenia with osteomyelitis. Patient given 2 doses neupogen, now ANC 4.3, will stop neupogen. - Continue broad spectrum antibiotics per primary team # Depression/Anxiety - If ok with primary team, would suggest treatment for depression/anxiety - Ensure TID added for nutrition given patient's poor appetite Problems: Consultation Date/Type/Reason Admit Date/Time Feb 18, 2017 at 20:42 Initial Consult Date 02/19/17 Type of Consultation: Oncology 24 HR Interval Summary Free Text/Dictation Patient has no new complaints. Exam/Review of Systems Vital Signs Vitals Vital Signs Date Time Temp Pulse Resp B/P Pulse Ox O2 Delivery O2 Flow Rate FiO2 02/20/17 08:35 98.6 76 20 156/83 98 02/18/17 21:45 Room Air Intake and Output 02/19/17 02/19/17 02/20/17 15:00 23:00 07:00 Intake Total 1340 ml 960 ml Balance 1340 ml 960 ml Exam Constitutional: alert, oriented Psych: no complaints Head: normocephalic Eyes: nl conjunctiva Neck: supple Respiratory: clear to auscultation Cardiovascular: regular rate and rhythm Gastrointestinal: non-tender, soft Neurological: PHYSICS TECHNICAL OFFICER II-XII intact Results Result Diagram: 02/20/17 0600 02/20/17 0600 Results 24 hrs Laboratory Tests Test 02/20/17 06:00 White Blood Count 6.6 # Red Blood Count 3.79 L Hemoglobin 12.2 Hematocrit 36.0 L Mean Corpuscular Volume 95.0 Mean Corpuscular Hemoglobin 32.2 Mean Corpuscular Hemoglobin Concent 33.9 Red Cell Distribution Width 13.5 Platelet Count 65 L Mean Platelet Volume 10.9 H Neutrophils % 65.0 Band Neutrophils % 14.0 H Lymphocytes % 16.0 Monocytes % 4.0 Eosinophils % 1.0 Neutrophils # 4.3 Lymphocytes # 1.1 Monocytes # 0.3 Eosinophils # 0.1 Platelet Estimate PLT APPEAR DECREASED Prothrombin Time 12.9 Prothrombin Time Ratio 1.0 INR International Normalized Ratio 0.97 Activated Partial Thromboplast Time 27.3 Sodium Level 139 Potassium Level 4.1 Chloride Level 104 Carbon Dioxide Level 31 Anion Gap 8 Blood Urea Nitrogen 9 Creatinine 0.74 Glucose Level 96 Hemoglobin A1c 5.2 Calcium Level 9.3 Phosphorus Level 3.7 Magnesium Level 1.5 L Folate 10.5 Thyroid Stimulating Hormone (TSH) 0.948 Medications Medications Current Medications Fentanyl (Duragesic 75 Mcg/Hr Patch) 1 patch Q72H TRANSDERM Last administered on 02/19/17 08:54; Admin Dose 1 PATCH; Start 02/19/17 at 09:00 Oxycodone/ Acetaminophen (Endocet (10/ 325)) 1 tab Q6H PRN PO PAIN Last administered on 02/20/17 15:00; Admin Dose 1 TAB; Start 02/18/17 at 23:30 Amlodipine Besylate (Norvasc) 10 mg DAILY PO Last administered on 02/20/17 09: 09; Admin Dose 10 MG; Start 02/19/17 at 09:00 Letrozole (Femara) 2.5 mg DAILY PO Last administered on 02/20/17 09:10; Admin Dose 2.5 MG; Start 02/19/17 at 09:00 Ondansetron HCl (Zofran Inj) 4 mg Q6H PRN IV NAUSEA AND/OR VOMITING; Start 10/25 at 23:30 Heparin Sodium (Porcine) (Heparin (5000 Units/0.5 ml)) 5,000 unit BID SC ; Start 02/19/17 at 09:00 Morphine Sulfate (morphine) 3 mg Q4H PRN IV PAIN Last administered on 16:26; Admin Dose 3 MG; Start 02/18/17 at 23:30 Acetaminophen 650 mg 650 mg Q6H PRN PO PAIN AND OR ELEVATED TEMP; Start at 23:30 Aztreonam (Azactam 1gm/NS (Pmx)) 50 ml @ 100 mls/hr Q8 IVPB Last administered on 02/20/17 16:06; Admin Dose 100 MLS/HR; Start 02/19/17 at 14:00 Alprazolam (Xanax) 0.25 mg BID PO Last administered on 02/20/17 09:09; Admin Dose 0.25 MG; Start 02/19/17 at 21:00 Clonidine (Catapres) 0.1 mg Q4H PRN PO ELEVATED SYSTOLIC BP; Start 02/19/17 at 12:00 Filgrastim (Neupogen) 480 mcg DAILY@17 SC Last administered on 02/20/17 18:21 ; Admin Dose 480 MCG; Start 02/19/17 at 17:00 Hydralazine HCl 5 mg 5 mg Q4H PRN IV ELEVATED DIASTOLIC BP; Start 02/19/17 at 16:00 Vancomycin HCl/ Sodium Chloride (Vancocin/NS) 250 ml @ 83.333 mls/ hr ONCE IVPB Last administered on 02/20/17 17:24; Admin Dose 83.333 MLS/HR; Start at 17:00; Stop 02/20/17 at 20:00 Magnesium Oxide (Mag-Ox 400) 400 mg BID PO ; Start 02/20/17 at 21:00 Senna/Docusate Sodium (Senokot-S) 2 tab HS PO ; Start 02/20/17 at 21:00 Lactobacillus Acidophilus/ Rhamnosus 1 cap 1 cap BID PO ; Start 02/21/17 at 09: 00 Vancomycin HCl (Vancocin) 250 ml @ 125 mls/hr Q12H IVPB ; Start 02/21/17 at 05: 00 CARLEEN IZAGUIRRE MD Feb 20, 2017 20:00
[2017-02-20] MEDS: SENNA/DOCUSATE NA (8.6MG/50MG) TAB PO SCH (20:40)
[2017-02-20] MEDS: MAGNESIUM OXIDE 400 MG TAB PO SCH (20:41)
[2017-02-20 20:42] VITALS: BP 169/79; RESP 18
[2017-02-20 21:20] VITALS: BP 154/78; PULSE 92; RESP 18
[2017-02-21] MEDS: morphine 4 MG/ML VIAL IV PRN ×3 (04:49→22:24)
[2017-02-21] MEDS: VANCOMYCIN 1 GM in NS 250 ML IVPB SCH ×2 (04:51→16:52)
[2017-02-21 05:45] LABS: ADD SCAN DIFF NO
[2017-02-21 05:55] LABS: ABNORMAL IP MESSAGE 1; HEMATOCRIT 36.4 % (37.0-47.0); HEMOGLOBIN 12.3 g/dl (12.0-16.0); MEAN CORPUSCULAR HEMOGLOBIN 32.1 pg (29.0-33.0); MEAN CORPUSCULAR HGB CONC 33.8 g/dl (32.0-37.0); MEAN PLATELET VOLUME 11.9 fl (7.4-10.4); PLATELET COUNT 70 10^3/UL (140-415); RED BLOOD COUNT 3.83 10^6/ul (4.20-5.40); RED CELL DISTRIBUTION WIDTH 13.8 % (11.5-14.5); WHITE BLOOD COUNT 8.9 10^3/ul (4.8-10.8)
[2017-02-21 06:55] LABS: CALCIUM 9.2 mg/dl (8.4-10.2); CREATININE 0.67 mg/dl (0.44-1.00); POTASSIUM 3.5 mmol/L (3.5-5.1)
[2017-02-21] MEDS: AZTREONAM 1 GM/NS (PMX) 50 ML IVPB SCH ×2 (07:01→13:12)
[2017-02-21] MEDS: LACTOBACILLUS RHAMNOSUS CAP PO SCH ×2 (08:24→22:24)
[2017-02-21] MEDS: HEPARIN 5,000 UNIT/0.5 ML VIAL SC SCH ×2 (08:24→21:00)
[2017-02-21 08:25] VITALS: BP 157/75; RESP 18
[2017-02-21] MEDS: AMLODIPINE 10 MG TAB PO SCH (08:34)
[2017-02-21] MEDS: ALPRAZOLAM 0.25 MG TAB PO SCH ×2 (08:35→22:24)
[2017-02-21] MEDS: LETROZOLE 2.5 MG TAB PO SCH (08:35)
[2017-02-21] MEDS: MAGNESIUM OXIDE 400 MG TAB PO SCH ×2 (08:39→22:25)
[2017-02-21 08:43] VITALS: BP 157/75; PULSE 72; RESP 18
[2017-02-21 09:02] LABS: MONOCYTE # 0.1 10^3/ul (0.3-0.9); NEUTROPHIL # 5.2 10^3/ul (1.6-7.5); PLATELET ESTIMATE PLT APPEAR DECREASED
--- NOTE | 2017-02-21 11:07 | PN ---
Date/Time of Note Date/Time of Note DATE: 02/21/17 TIME: 11:05 Assessment/Plan VTE Prophylaxis VTE Prophylaxis Intervention: ambulation Lines/Catheters IV [facility]from [facility] Saline Lock Urinary Cath still in place: No Assessment/Plan Assessment/Plan The patient is a 61 year old female well known to me with a history of stage II ER+ breast cancer status post lumpectomy, treated at [facility] with chemotherapy with TC x 4 and radiation without hormonal therapy as she declined it at that time, then was lost to follow-up, now with metastatic ER+ breast cancer to LN and liver, on Ibrance/letrozole since 07/16/17 with multiple dose reductions of ibrance (CDK 4/6 inhibitor) due to neutropenia with recent reduction in dose then cessation of Ibrance with continuation of hormonal therapy letrozole. She now is admitted with third distal right phalanx osteomyelitis, may need toe amputation. - Tumor markers have decreased/stabilized and patient had treatment response as of CT scan 10/10/16. - May continue letrozole while in house as letrozole should not contribute to neutropenia. - received neupogen given neutropenia with osteomyelitis. Patient given 2 doses neupogen, now ANC 8.9, off neupogen. dc precautions - Continue broad spectrum antibiotics per primary team # Depression/Anxiety stable. Subjective 24 Hr Interval Summary Free Text/Dictation swelling in neck and scratchy throat Exam/Review of Systems Vital Signs Vitals Vital Signs Date Time Temp Pulse Resp B/P Pulse Ox O2 Delivery O2 Flow Rate FiO2 02/21/17 08:43 98.7 72 18 157/75 96 Room Air Intake and Output 02/20/17 02/20/17 02/21/17 15:00 23:00 07:00 Intake Total 1140 ml 700 ml Balance 1140 ml 700 ml Exam Constitutional: alert, oriented Psych: no complaints Eyes: nl conjunctiva, nl sclera Neck: supple Respiratory: normal air movement Cardiovascular: regular rate and rhythm Gastrointestinal: soft Results Result Diagram: 02/21/17 0505 02/21/17 0505 Results 24 hrs Laboratory Tests Test 02/21/17 05:05 White Blood Count 8.9 # Red Blood Count 3.83 L Hemoglobin 12.3 Hematocrit 36.4 L Mean Corpuscular Volume 95.0 Mean Corpuscular Hemoglobin 32.1 Mean Corpuscular Hemoglobin Concent 33.8 Red Cell Distribution Width 13.8 Platelet Count 70 L Mean Platelet Volume 11.9 H Neutrophils % 58.0 Band Neutrophils % 18.0 H Lymphocytes % 23.0 Monocytes % 1.0 Eosinophils % Neutrophils # 5.2 Lymphocytes # 2.0 Monocytes # 0.1 L Eosinophils # Platelet Estimate PLT APPEAR DECREASED Sodium Level 139 Potassium Level 3.5 Chloride Level 104 Carbon Dioxide Level 28 Anion Gap 11 Blood Urea Nitrogen 8 Creatinine 0.67 Glucose Level 99 Calcium Level 9.2 Medications Medications Current Medications Fentanyl (Duragesic 75 Mcg/Hr Patch) 1 patch Q72H TRANSDERM Last administered on 02/19/17 08:54; Admin Dose 1 PATCH; Start 02/19/17 at 09:00 Oxycodone/ Acetaminophen (Endocet (10/ 325)) 1 tab Q6H PRN PO PAIN Last administered on 02/20/17 22:44; Admin Dose 1 TAB; Start 02/18/17 at 23:30 Amlodipine Besylate (Norvasc) 10 mg DAILY PO Last administered on 02/21/17 08: 34; Admin Dose 10 MG; Start 02/19/17 at 09:00 Letrozole (Femara) 2.5 mg DAILY PO Last administered on 02/21/17 08:35; Admin Dose 2.5 MG; Start 02/19/17 at 09:00 Ondansetron HCl (Zofran Inj) 4 mg Q6H PRN IV NAUSEA AND/OR VOMITING; Start 10/25 at 23:30 Heparin Sodium (Porcine) (Heparin (5000 Units/0.5 ml)) 5,000 unit BID SC ; Start 02/19/17 at 09:00 Morphine Sulfate (morphine) 3 mg Q4H PRN IV PAIN Last administered on 11:01; Admin Dose 3 MG; Start 02/18/17 at 23:30 Acetaminophen 650 mg 650 mg Q6H PRN PO PAIN AND OR ELEVATED TEMP; Start at 23:30 Aztreonam (Azactam 1gm/NS (Pmx)) 50 ml @ 100 mls/hr Q8 IVPB Last administered on 02/21/17 07:01; Admin Dose 100 MLS/HR; Start 02/19/17 at 14:00 Alprazolam (Xanax) 0.25 mg BID PO Last administered on 02/21/17 08:35; Admin Dose 0.25 MG; Start 02/19/17 at 21:00 Clonidine (Catapres) 0.1 mg Q4H PRN PO ELEVATED SYSTOLIC BP; Start 02/19/17 at 12:00 Hydralazine HCl (Apresoline) 5 mg Q4H PRN IV ELEVATED DIASTOLIC BP; Start 02/19 at 16:00 Magnesium Oxide (Mag-Ox 400) 400 mg BID PO Last administered on 02/21/17 08:39 ; Admin Dose 400 MG; Start 02/20/17 at 21:00 Senna/Docusate Sodium (Senokot-S) 2 tab HS PO Last administered on 02/20/17 20 :40; Admin Dose 2 TAB; Start 02/20/17 at 21:00 Lactobacillus Acidophilus/ Rhamnosus 1 cap 1 cap BID PO Last administered on 08:24; Admin Dose 1 CAP; Start 02/21/17 at 09:00 Vancomycin HCl (Vancocin) 250 ml @ 125 mls/hr Q12H IVPB Last administered on 04:51; Admin Dose 125 MLS/HR; Start 02/21/17 at 05:00 JESÚS SEPINAL MD Feb 21, 2017 11:07
[2017-02-21] MEDS: OXYCODONE/ACETAMINOPHEN (10/325) TAB PO PRN (13:19)
--- NOTE | 2017-02-21 14:59 | PN ---
Date/Time of Note Date/Time of Note DATE: 02/21/17 TIME: 14:58 Assessment/Plan VTE Prophylaxis VTE Prophylaxis Intervention: heparin Lines/Catheters IV Catheter Type (from [facility]): Saline Lock Urinary Cath still in place: No Assessment/Plan Chief Complaint/Hosp Course S: 02/19 Rt 3rd toe pain recent infection. No generalized toxicity. No recent injury. Has chr neuropathy-possibly post chemo. Recently stopped 1 of her chemo' s due to pancytopenia. Still on the other. 02/20- no distress/ toxicity. iv access is an issue. 02/21-no pain. No toxicity. Pending podiatry eval. Tolerating antibiotics. Peripheral IV site ok. O: Vss PE No pallor Reg no murmur rub CTAB Bs + nt nd, no r/r/g No edema. Chr neuropathy. Rt 2/ amp status; 3rd toe probable OM. A/P 1. Rt 3rd toe probable OM. 6 wks atb's/PICC vs amp. Stable check w podiatry. 2. Chr neuropathy 3. Metastatic recurrent rest Ca. Chemo if performance status is stable. 4. Immune status questionable. 5. Past tobacco/ etoh? 6. Possible PAD 7. Anemia 8. Chr htn/DL 9. Leukopenia, watch for neutropenia Problems: Exam/Review of Systems Vital Signs Vitals Vital Signs Date Time Temp Pulse Resp B/P Pulse Ox O2 Delivery O2 Flow Rate FiO2 02/21/17 08:43 98.7 72 18 157/75 96 Room Air Intake and Output 02/20/17 02/20/17 02/21/17 15:00 23:00 07:00 Intake Total 1140 ml 700 ml Balance 1140 ml 700 ml Results Result Diagram: 02/21/17 0505 02/21/17 0505 Results 24 hrs Laboratory Tests Test 02/21/17 05:05 White Blood Count 8.9 # Red Blood Count 3.83 L Hemoglobin 12.3 Hematocrit 36.4 L Mean Corpuscular Volume 95.0 Mean Corpuscular Hemoglobin 32.1 Mean Corpuscular Hemoglobin Concent 33.8 Red Cell Distribution Width 13.8 Platelet Count 70 L Mean Platelet Volume 11.9 H Neutrophils % 58.0 Band Neutrophils % 18.0 H Lymphocytes % 23.0 Monocytes % 1.0 Eosinophils % Neutrophils # 5.2 Lymphocytes # 2.0 Monocytes # 0.1 L Eosinophils # Platelet Estimate PLT APPEAR DECREASED Sodium Level 139 Potassium Level 3.5 Chloride Level 104 Carbon Dioxide Level 28 Anion Gap 11 Blood Urea Nitrogen 8 Creatinine 0.67 Glucose Level 99 Calcium Level 9.2 Medications Medications Current Medications Oxycodone/ Acetaminophen (Endocet (10/ 325)) 1 tab Q6H PRN PO PAIN Last administered on 02/21/17 13:19; Admin Dose 1 TAB; Start 02/18/17 at 23:30 Amlodipine Besylate (Norvasc) 10 mg DAILY PO Last administered on 02/21/17 08: 34; Admin Dose 10 MG; Start 02/19/17 at 09:00 Letrozole (Femara) 2.5 mg DAILY PO Last administered on 02/21/17 08:35; Admin Dose 2.5 MG; Start 02/19/17 at 09:00 Ondansetron HCl (Zofran Inj) 4 mg Q6H PRN IV NAUSEA AND/OR VOMITING; Start 10/25 at 23:30 Heparin Sodium (Porcine) (Heparin (5000 Units/0.5 ml)) 5,000 unit BID SC ; Start 02/19/17 at 09:00 Morphine Sulfate (morphine) 3 mg Q4H PRN IV PAIN Last administered on 11:01; Admin Dose 3 MG; Start 02/18/17 at 23:30 Acetaminophen 650 mg 650 mg Q6H PRN PO PAIN AND OR ELEVATED TEMP; Start at 23:30 Aztreonam (Azactam 1gm/NS (Pmx)) 50 ml @ 100 mls/hr Q8 IVPB Last administered on 02/21/17 13:12; Admin Dose 100 MLS/HR; Start 02/19/17 at 14:00 Alprazolam (Xanax) 0.25 mg BID PO Last administered on 02/21/17 08:35; Admin Dose 0.25 MG; Start 02/19/17 at 21:00 Clonidine (Catapres) 0.1 mg Q4H PRN PO ELEVATED SYSTOLIC BP; Start 02/19/17 at 12:00 Hydralazine HCl (Apresoline) 5 mg Q4H PRN IV ELEVATED DIASTOLIC BP; Start 02/19 at 16:00 Magnesium Oxide (Mag-Ox 400) 400 mg BID PO Last administered on 02/21/17 08:39 ; Admin Dose 400 MG; Start 02/20/17 at 21:00 Senna/Docusate Sodium (Senokot-S) 2 tab HS PO Last administered on 02/20/17 20 :40; Admin Dose 2 TAB; Start 02/20/17 at 21:00 Lactobacillus Acidophilus/ Rhamnosus 1 cap 1 cap BID PO Last administered on 08:24; Admin Dose 1 CAP; Start 02/21/17 at 09:00 Vancomycin HCl (Vancocin) 250 ml @ 125 mls/hr Q12H IVPB Last administered on 04:51; Admin Dose 125 MLS/HR; Start 02/21/17 at 05:00 Miscellaneous Information (*Rx Drug Level Order Reminder*) VANCOMYCIN TROUGH AT 0400 ONCE ONCE XX ; Start 02/22/17 at 04:00; Stop 02/22/17 at 04:01 Fentanyl (Duragesic 75 Mcg/Hr Patch) 1 patch Q72H TRANSDERM ; Start 02/21/17 at 15:00 PANCHITO DOMÍNGUEZ MD Feb 21, 2017 14:59
[2017-02-21] MEDS: FENTAnyl PATCH 75 MCG/HR TRANSDERM SCH (15:06)
--- NOTE | 2017-02-21 20:27 | CONS ---
Date/Time of Note Date/Time of Note DATE: 02/21/17 TIME: 20:25 Assessment/Plan Assessment/Plan Chief Complaint/Hosp Course SUBJECTIVE: No acute changes. The patient is lying comfortably, no fevers, no pain MICROBIOLOGY: Blood culture negative. DIAGNOSTICS: MRI revealed right third distal phalanx osteomyelitis with cellulitis, no evidence of abscess. ANTIMICROBIALS: The patient is on IV vancomycin and Azactam. ALLERGY: PENICILLIN. PHYSICAL EXAMINATION: GENERAL: Well-developed, obese, elderly woman who is in no distress. HEENT: Head atraumatic, normocephalic. Sclerae anicteric. Buccal mucosa dry. NECK: Supple, trachea midline. CHEST: Rise symmetrical. Breath sounds diminished. HEART: S1, S2. ABDOMEN: Soft, bowel sounds present. EXTREMITIES: Without cyanosis. ASSESSMENT: 1. Right third phalanx osteomyelitis. 2. Metastatic breast carcinoma and chemo. 3. Peripheral vascular disease. 4. Hypertension. 5. Resolving neutropenia. PLAN: The patient remains stable. We will continue Vanco, changed Azactam to oral Levaquin. F/u vascular/oncology rec-s [facility] staff Problems: Consultation Date/Type/Reason Admit Date/Time Feb 18, 2017 at 20:42 Initial Consult Date 02/19/17 Type of Consultation: id Exam/Review of Systems Vital Signs Vitals Vital Signs Date Time Temp Pulse Resp B/P Pulse Ox O2 Delivery O2 Flow Rate FiO2 02/21/17 08:43 98.7 72 18 157/75 96 Room Air Intake and Output 02/20/17 02/20/17 02/21/17 15:00 23:00 07:00 Intake Total 1140 ml 700 ml Balance 1140 ml 700 ml Results Result Diagram: 02/21/17 0505 02/21/17 0505 Results 24 hrs Laboratory Tests Test 02/21/17 05:05 White Blood Count 8.9 # Red Blood Count 3.83 L Hemoglobin 12.3 Hematocrit 36.4 L Mean Corpuscular Volume 95.0 Mean Corpuscular Hemoglobin 32.1 Mean Corpuscular Hemoglobin Concent 33.8 Red Cell Distribution Width 13.8 Platelet Count 70 L Mean Platelet Volume 11.9 H Neutrophils % 58.0 Band Neutrophils % 18.0 H Lymphocytes % 23.0 Monocytes % 1.0 Eosinophils % Neutrophils # 5.2 Lymphocytes # 2.0 Monocytes # 0.1 L Eosinophils # Platelet Estimate PLT APPEAR DECREASED Sodium Level 139 Potassium Level 3.5 Chloride Level 104 Carbon Dioxide Level 28 Anion Gap 11 Blood Urea Nitrogen 8 Creatinine 0.67 Glucose Level 99 Calcium Level 9.2 Medications Medications Current Medications Oxycodone/ Acetaminophen (Endocet (10/ 325)) 1 tab Q6H PRN PO PAIN Last administered on 02/21/17 13:19; Admin Dose 1 TAB; Start 02/18/17 at 23:30 Amlodipine Besylate (Norvasc) 10 mg DAILY PO Last administered on 02/21/17 08: 34; Admin Dose 10 MG; Start 02/19/17 at 09:00 Letrozole (Femara) 2.5 mg DAILY PO Last administered on 02/21/17 08:35; Admin Dose 2.5 MG; Start 02/19/17 at 09:00 Ondansetron HCl (Zofran Inj) 4 mg Q6H PRN IV NAUSEA AND/OR VOMITING; Start 10/25 at 23:30 Heparin Sodium (Porcine) (Heparin (5000 Units/0.5 ml)) 5,000 unit BID SC ; Start 02/19/17 at 09:00 Morphine Sulfate (morphine) 3 mg Q4H PRN IV PAIN Last administered on 11:01; Admin Dose 3 MG; Start 02/18/17 at 23:30 Acetaminophen 650 mg 650 mg Q6H PRN PO PAIN AND OR ELEVATED TEMP; Start at 23:30 Aztreonam (Azactam 1gm/NS (Pmx)) 50 ml @ 100 mls/hr Q8 IVPB Last administered on 02/21/17 13:12; Admin Dose 100 MLS/HR; Start 02/19/17 at 14:00 Alprazolam (Xanax) 0.25 mg BID PO Last administered on 02/21/17 08:35; Admin Dose 0.25 MG; Start 02/19/17 at 21:00 Clonidine (Catapres) 0.1 mg Q4H PRN PO ELEVATED SYSTOLIC BP; Start 02/19/17 at 12:00 Hydralazine HCl (Apresoline) 5 mg Q4H PRN IV ELEVATED DIASTOLIC BP; Start 02/19 at 16:00 Magnesium Oxide (Mag-Ox 400) 400 mg BID PO Last administered on 02/21/17 08:39 ; Admin Dose 400 MG; Start 02/20/17 at 21:00 Senna/Docusate Sodium (Senokot-S) 2 tab HS PO Last administered on 02/20/17 20 :40; Admin Dose 2 TAB; Start 02/20/17 at 21:00 Lactobacillus Acidophilus/ Rhamnosus 1 cap 1 cap BID PO Last administered on 08:24; Admin Dose 1 CAP; Start 02/21/17 at 09:00 Vancomycin HCl (Vancocin) 250 ml @ 125 mls/hr Q12H IVPB Last administered on 16:52; Admin Dose 125 MLS/HR; Start 02/21/17 at 05:00 Miscellaneous Information (*Rx Drug Level Order Reminder*) VANCOMYCIN TROUGH AT 0400 ONCE ONCE XX ; Start 02/22/17 at 04:00; Stop 02/22/17 at 04:01 Fentanyl (Duragesic 75 Mcg/Hr Patch) 1 patch Q72H TRANSDERM Last administered on 02/21/17 15:06; Admin Dose 1 PATCH; Start 02/21/17 at 15:00 KIERRA WALKER NP Feb 21, 2017 20:27
[2017-02-21 20:58] VITALS: BP 130/80; RESP 18
[2017-02-21] MEDS: SENNA/DOCUSATE NA (8.6MG/50MG) TAB PO SCH (22:24)
[2017-02-22 05:12] LABS: ADD SCAN DIFF NO
[2017-02-22] MEDS: VANCOMYCIN 1 GM in NS 250 ML IVPB SCH (05:17)
[2017-02-22 05:30] LABS: CALCIUM 8.8 mg/dl (8.4-10.2); CREATININE 0.71 mg/dl (0.44-1.00); POTASSIUM 3.7 mmol/L (3.5-5.1)
[2017-02-22] MEDS: LEVOFLOXACIN 500 MG TAB NGT SCH (05:35)
[2017-02-22 05:52] LABS: ABNORMAL IP MESSAGE 1; HEMATOCRIT 33.7 % (37.0-47.0); HEMOGLOBIN 11.3 g/dl (12.0-16.0); MEAN CORPUSCULAR HEMOGLOBIN 32.4 pg (29.0-33.0); MEAN CORPUSCULAR HGB CONC 33.5 g/dl (32.0-37.0); MEAN CORPUSCULAR VOLUME 96.6 fl (82.0-101.0); MEAN PLATELET VOLUME 11.9 fl (7.4-10.4); PLATELET COUNT 65 10^3/UL (140-415); RED BLOOD COUNT 3.49 10^6/ul (4.20-5.40); RED CELL DISTRIBUTION WIDTH 14.1 % (11.5-14.5); WHITE BLOOD COUNT 9.8 10^3/ul (4.8-10.8)
[2017-02-22 07:49] VITALS: BP 134/67; RESP 18
[2017-02-22] MEDS: LACTOBACILLUS RHAMNOSUS CAP PO SCH ×2 (08:45→21:15)
[2017-02-22] MEDS: LETROZOLE 2.5 MG TAB PO SCH (08:47)
[2017-02-22] MEDS: MAGNESIUM OXIDE 400 MG TAB PO SCH ×2 (08:48→21:15)
[2017-02-22] MEDS: ALPRAZOLAM 0.25 MG TAB PO SCH ×2 (08:50→21:15)
[2017-02-22] MEDS: AMLODIPINE 10 MG TAB PO SCH (08:50)
[2017-02-22] MEDS: HEPARIN 5,000 UNIT/0.5 ML VIAL SC SCH ×2 (08:56→21:00)
[2017-02-22] MEDS: morphine 4 MG/ML VIAL IV PRN ×2 (09:09→21:29)
[2017-02-22 09:25] LABS: EOSINOPHILS # 0.1 10^3/ul (0.0-0.5); LYMPHOCYTES # 1.8 10^3/ul (0.8-2.9); MONOCYTE # 0.8 10^3/ul (0.3-0.9); NEUTROPHIL # 6.5 10^3/ul (1.6-7.5); PLATELET ESTIMATE PLT APPEAR DECREASED
--- NOTE | 2017-02-22 13:09 | PN ---
Date/Time of Note Date/Time of Note DATE: 02/22/17 TIME: 13:07 Assessment/Plan VTE Prophylaxis VTE Prophylaxis Intervention: LMWH Lines/Catheters IV C[facility]ter Type [facility]from [facility] Saline Lock Urinary Cath still in place: No Assessment/Plan Chief Complaint/Hosp Course S: 02/19 Rt 3rd toe pain recent infection. No generalized toxicity. No recent injury. Has chr neuropathy-possibly post chemo. Recently stopped 1 of her chemo' s due to pancytopenia. Still on the other. 02/20- no distress/ toxicity. iv access is an issue. Refused Lovenox. risk of DVT explained to her. She is ambulating well. 02/21-no pain/ toxicity. Pending podiatry eval. Tolerating atb's. Ruth Ann IV site ok. 02/22-no events. No sepsis toxicity. O: Vss PE No pallor Reg no m/r/g CTAB Bs + nt nd, no r/r/g No edema. Chr neuropathy. Rt 2/ amp status; 3rd toe probable OM. A/P 1. Rt 3rd toe probable OM. 6 wks atb's/PICC vs amp. Stable check w podiatry. 2. Chr neuropathy 3. Metastatic recurrent Breast Ca. 4. Immune status questionable. Ok to cont chemo. 5. Past tobacco/ etoh? 6. Possible PAD 7. Anemia 8. Chr htn/DL 9. Leukopenia improved Problems: Exam/Review of Systems Vital Signs Vitals Vital Signs Date Time Temp Pulse Resp B/P Pulse Ox O2 Delivery O2 Flow Rate FiO2 02/22/17 07:49 98.3 80 18 134/67 99 02/21/17 08:43 Room Air Intake and Output 02/21/17 02/21/17 02/22/17 15:00 23:00 07:00 Intake Total 50 ml 1030 ml 700 ml Output Total 950 ml Balance 50 ml 80 ml 700 ml Results Result Diagram: 02/22/17 0410 02/22/17 0410 Results 24 hrs Laboratory Tests Test 02/22/17 04:10 White Blood Count 9.8 Red Blood Count 3.49 L Hemoglobin 11.3 L Hematocrit 33.7 L Mean Corpuscular Volume 96.6 Mean Corpuscular Hemoglobin 32.4 Mean Corpuscular Hemoglobin Concent 33.5 Red Cell Distribution Width 14.1 Platelet Count 65 L Mean Platelet Volume 11.9 H Neutrophils % 66.0 Band Neutrophils % 5.0 Lymphocytes % 18.0 Reactive Lymphocytes % 2.0 Monocytes % 8.0 Eosinophils % 1.0 Neutrophils # 6.5 Lymphocytes # 1.8 Monocytes # 0.8 Eosinophils # 0.1 Platelet Estimate PLT APPEAR DECREASED Sodium Level 138 Potassium Level 3.7 Chloride Level 106 Carbon Dioxide Level 29 Anion Gap 7 L Blood Urea Nitrogen 7 Creatinine 0.71 Glucose Level 93 Calcium Level 8.8 Vancomycin Level Trough 9.8 L Medications Medications Current Medications Oxycodone/ Acetaminophen (Endocet (10/ 325)) 1 tab Q6H PRN PO PAIN Last administered on 02/21/17 13:19; Admin Dose 1 TAB; Start 02/18/17 at 23:30 Amlodipine Besylate (Norvasc) 10 mg DAILY PO Last administered on 02/22/17 08: 50; Admin Dose 10 MG; Start 02/19/17 at 09:00 Letrozole (Femara) 2.5 mg DAILY PO Last administered on 02/22/17 08:47; Admin Dose 2.5 MG; Start 02/19/17 at 09:00 Ondansetron HCl (Zofran Inj) 4 mg Q6H PRN IV NAUSEA AND/OR VOMITING; Start 10/25 at 23:30 Heparin Sodium (Porcine) (Heparin (5000 Units/0.5 ml)) 5,000 unit BID SC ; Start 02/19/17 at 09:00 Morphine Sulfate (morphine) 3 mg Q4H PRN IV PAIN Last administered on 09:09; Admin Dose 3 MG; Start 02/18/17 at 23:30 Acetaminophen (Tylenol Tab) 650 mg Q6H PRN PO PAIN AND OR ELEVATED TEMP; Start 02/18/17 at 23:30 Alprazolam (Xanax) 0.25 mg BID PO Last administered on 02/22/17 08:50; Admin Dose 0.25 MG; Start 02/19/17 at 21:00 Clonidine (Catapres) 0.1 mg Q4H PRN PO ELEVATED SYSTOLIC BP; Start 02/19/17 at 12:00 Hydralazine HCl (Apresoline) 5 mg Q4H PRN IV ELEVATED DIASTOLIC BP; Start 02/19 at 16:00 Magnesium Oxide (Mag-Ox 400) 400 mg BID PO Last administered on 02/22/17 08:48 ; Admin Dose 400 MG; Start 02/20/17 at 21:00 Senna/Docusate Sodium (Senokot-S) 2 tab HS PO Last administered on 02/21/17 22 :24; Admin Dose 2 TAB; Start 02/20/17 at 21:00 Lactobacillus Acidophilus/ Rhamnosus (Culturelle) 1 cap BID PO Last administered on 02/22/17 08:45; Admin Dose 1 CAP; Start 02/21/17 at 09:00 Fentanyl (Duragesic 75 Mcg/Hr Patch) 1 patch Q72H TRANSDERM Last administered on 02/21/17 15:06; Admin Dose 1 PATCH; Start 02/21/17 at 15:00 Levofloxacin 500 mg 500 mg DAILY@06 NGT Last administered on 02/22/17 05:35; Admin Dose 500 MG; Start 02/22/17 at 06:00 Vancomycin HCl/ Sodium Chloride (Vancocin/NS) 250 ml @ 83.333 mls/ hr Q12H IVPB ; Start 02/22/17 at 14:00 PANCHITO DOMÍNGUEZ MD Feb 22, 2017 13:09
[2017-02-22] MEDS ORDERED: PHENOL 1.4% SOLN 180 ML BTL MT PRN (13:30)
[2017-02-22] MEDS: VANCOMYCIN 1.25 GM in SOD CHLORIDE 0.9% 250 ML IVPB SCH (14:06)
[2017-02-22] MEDS: OXYCODONE/ACETAMINOPHEN (10/325) TAB PO PRN (17:56)
[2017-02-22 20:20] VITALS: BP 126/60; RESP 18
--- NOTE | 2017-02-22 20:28 | CONS ---
Date/Time of Note Date/Time of Note DATE: 02/22/17 TIME: 20:27 Assessment/Plan Assessment/Plan Chief Complaint/Hosp Course SUBJECTIVE: No acute changes. Alert, feels good, no fevers, no pain MICROBIOLOGY: Blood culture negative. DIAGNOSTICS: MRI revealed right third distal phalanx osteomyelitis with cellulitis, no evidence of abscess. ANTIMICROBIALS: The patient is on IV vancomycin and Levaquin. ALLERGY: PENICILLIN. PHYSICAL EXAMINATION: GENERAL: Well-developed, obese, elderly woman who is in no distress. HEENT: Head atraumatic, normocephalic. Sclerae anicteric. Buccal mucosa dry. NECK: Supple, trachea midline. CHEST: Rise symmetrical. Breath sounds diminished. HEART: S1, S2. ABDOMEN: Soft, bowel sounds present. EXTREMITIES: Without cyanosis. ASSESSMENT: 1. Right third phalanx osteomyelitis. 2. Metastatic breast carcinoma and chemo. 3. Peripheral vascular disease. 4. Hypertension. 5. Resolving neutropenia. PLAN: The patient remains stable. Continue abx. F/u vascular/oncology rec-s [facility] staff Problems: Consultation Date/Type/Reason Admit Date/Time Feb 18, 2017 at 20:42 Initial Consult Date 02/19/17 Type of Consultation: ID Exam/Review of Systems Vital Signs Vitals Vital Signs Date Time Temp Pulse Resp B/P Pulse Ox O2 Delivery O2 Flow Rate FiO2 02/22/17 07:49 98.3 80 18 134/67 99 02/21/17 08:43 Room Air Intake and Output 02/21/17 02/21/17 02/22/17 15:00 23:00 07:00 Intake Total 50 ml 1030 ml 700 ml Output Total 950 ml Balance 50 ml 80 ml 700 ml Results Result Diagram: 02/22/17 0410 02/22/17 0410 Results 24 hrs Laboratory Tests Test 02/22/17 04:10 White Blood Count 9.8 Red Blood Count 3.49 L Hemoglobin 11.3 L Hematocrit 33.7 L Mean Corpuscular Volume 96.6 Mean Corpuscular Hemoglobin 32.4 Mean Corpuscular Hemoglobin Concent 33.5 Red Cell Distribution Width 14.1 Platelet Count 65 L Mean Platelet Volume 11.9 H Neutrophils % 66.0 Band Neutrophils % 5.0 Lymphocytes % 18.0 Reactive Lymphocytes % 2.0 Monocytes % 8.0 Eosinophils % 1.0 Neutrophils # 6.5 Lymphocytes # 1.8 Monocytes # 0.8 Eosinophils # 0.1 Platelet Estimate PLT APPEAR DECREASED Sodium Level 138 Potassium Level 3.7 Chloride Level 106 Carbon Dioxide Level 29 Anion Gap 7 L Blood Urea Nitrogen 7 Creatinine 0.71 Glucose Level 93 Calcium Level 8.8 Vancomycin Level Trough 9.8 L Medications Medications Current Medications Oxycodone/ Acetaminophen (Endocet (10/ 325)) 1 tab Q6H PRN PO PAIN Last administered on 02/22/17 17:56; Admin Dose 1 TAB; Start 02/18/17 at 23:30 Amlodipine Besylate (Norvasc) 10 mg DAILY PO Last administered on 02/22/17 08: 50; Admin Dose 10 MG; Start 02/19/17 at 09:00 Letrozole (Femara) 2.5 mg DAILY PO Last administered on 02/22/17 08:47; Admin Dose 2.5 MG; Start 02/19/17 at 09:00 Ondansetron HCl (Zofran Inj) 4 mg Q6H PRN IV NAUSEA AND/OR VOMITING; Start 10/25 at 23:30 Heparin Sodium (Porcine) (Heparin (5000 Units/0.5 ml)) 5,000 unit BID SC ; Start 02/19/17 at 09:00 Morphine Sulfate (morphine) 3 mg Q4H PRN IV PAIN Last administered on 09:09; Admin Dose 3 MG; Start 02/18/17 at 23:30 Acetaminophen (Tylenol Tab) 650 mg Q6H PRN PO PAIN AND OR ELEVATED TEMP; Start 02/18/17 at 23:30 Alprazolam (Xanax) 0.25 mg BID PO Last administered on 02/22/17 08:50; Admin Dose 0.25 MG; Start 02/19/17 at 21:00 Clonidine (Catapres) 0.1 mg Q4H PRN PO ELEVATED SYSTOLIC BP; Start 02/19/17 at 12:00 Hydralazine HCl (Apresoline) 5 mg Q4H PRN IV ELEVATED DIASTOLIC BP; Start 02/19 at 16:00 Magnesium Oxide (Mag-Ox 400) 400 mg BID PO Last administered on 02/22/17 08:48 ; Admin Dose 400 MG; Start 02/20/17 at 21:00 Senna/Docusate Sodium (Senokot-S) 2 tab HS PO Last administered on 02/21/17 22 :24; Admin Dose 2 TAB; Start 02/20/17 at 21:00 Lactobacillus Acidophilus/ Rhamnosus (Culturelle) 1 cap BID PO Last administered on 02/22/17 08:45; Admin Dose 1 CAP; Start 02/21/17 at 09:00 Fentanyl (Duragesic 75 Mcg/Hr Patch) 1 patch Q72H TRANSDERM Last administered on 02/21/17 15:06; Admin Dose 1 PATCH; Start 02/21/17 at 15:00 Levofloxacin 500 mg 500 mg DAILY@06 NGT Last administered on 02/22/17 05:35; Admin Dose 500 MG; Start 02/22/17 at 06:00 Vancomycin HCl/ Sodium Chloride (Vancocin/NS) 250 ml @ 83.333 mls/ hr Q12H IVPB Last administered on 02/22/17 14:06; Admin Dose 83.333 MLS/HR; Start at 14:00 Phenol (Chloraseptic Throat [place]) 2 spray Q2H PRN MT SORE THROAT; Start at 13:30 KIERRA WALKER NP Feb 22, 2017 20:28
[2017-02-22] MEDS: SENNA/DOCUSATE NA (8.6MG/50MG) TAB PO SCH (21:00)
[2017-02-23] MEDS: VANCOMYCIN 1.25 GM in SOD CHLORIDE 0.9% 250 ML IVPB SCH ×2 (02:06→13:10)
[2017-02-23] MEDS: morphine 4 MG/ML VIAL IV PRN ×4 (02:11→17:43)
[2017-02-23 05:42] LABS: ADD SCAN DIFF NO
[2017-02-23 05:50] LABS: ABNORMAL IP MESSAGE 1; BASOPHILS % 0.4 % (0.0-2.0); EOSINOPHILS % 0.6 % (0.0-7.0); HEMATOCRIT 32.1 % (37.0-47.0); HEMOGLOBIN 10.6 g/dl (12.0-16.0); LYMPHOCYTES # 1.5 10^3/ul (0.8-2.9); LYMPHOCYTES % 26.8 % (15.0-51.0); MEAN CORPUSCULAR HEMOGLOBIN 32.4 pg (29.0-33.0); MEAN CORPUSCULAR VOLUME 98.2 fl (82.0-101.0); MEAN PLATELET VOLUME 11.7 fl (7.4-10.4); MONOCYTE # 0.6 10^3/ul (0.3-0.9); MONOCYTES % 11.5 % (0.0-11.0); NEUTROPHIL # 3.2 10^3/ul (1.6-7.5); PLATELET COUNT 75 10^3/UL (140-415); RED BLOOD COUNT 3.27 10^6/ul (4.20-5.40); RED CELL DISTRIBUTION WIDTH 14.2 % (11.5-14.5); WHITE BLOOD COUNT 5.4 10^3/ul (4.8-10.8)
[2017-02-23] MEDS: LEVOFLOXACIN 500 MG TAB NGT SCH (05:50)
[2017-02-23] MEDS: OXYCODONE/ACETAMINOPHEN (10/325) TAB PO PRN ×2 (05:50→20:52)
[2017-02-23 07:05] VITALS: BP 117/57; RESP 16
[2017-02-23] MEDS: ALPRAZOLAM 0.25 MG TAB PO SCH ×2 (08:50→20:32)
[2017-02-23] MEDS: AMLODIPINE 10 MG TAB PO SCH (08:51)
[2017-02-23] MEDS: LETROZOLE 2.5 MG TAB PO SCH (08:51)
[2017-02-23] MEDS: LACTOBACILLUS RHAMNOSUS CAP PO SCH ×2 (08:52→20:32)
[2017-02-23] MEDS: MAGNESIUM OXIDE 400 MG TAB PO SCH ×2 (08:52→20:32)
[2017-02-23] MEDS: HEPARIN 5,000 UNIT/0.5 ML VIAL SC SCH ×3 (08:52→20:37)
--- NOTE | 2017-02-23 13:44 | CONS ---
Date/Time of Note Date/Time of Note DATE: 02/23/17 TIME: 13:42 Assessment/Plan Assessment/Plan Chief Complaint/Hosp Course The patient is a 61 year old female well known to me with a history of stage II ER+ breast cancer status post lumpectomy, treated at [facility] with chemotherapy with TC x 4 and radiation without hormonal therapy as she declined it at that time, then was lost to follow-up, now with metastatic ER+ breast cancer to LN and liver, on Ibrance/letrozole since 07/16/17 with multiple dose reductions of ibrance (CDK 4/6 inhibitor) due to neutropenia with recent reduction in dose then cessation of Ibrance with continuation of hormonal therapy letrozole. She now is admitted with third distal right phalanx osteomyelitis, may need toe amputation. - Tumor markers have decreased/stabilized and patient had treatment response as of CT scan 10/10/16. CA 27-29 is 27 (02/20/17), down from 30 on 02/06/17. CA 15-3 pending. - Will plan for CT CAP with contrast with Ativan prior prior to discharge. Will hold off for now given patient only has one IV and pt receiving IV antibiotics. - May continue letrozole while in house as letrozole should not contribute to neutropenia. - received neupogen given neutropenia with osteomyelitis. Patient given 2 doses neupogen, now ANC 8.9, off neupogen. Discontinue neutropenic precautions - Continue broad spectrum antibiotics per primary team # Depression/Anxiety stable. Problems: Consultation Date/Type/Reason Admit Date/Time Feb 18, 2017 at 20:42 Initial Consult Date 02/19/17 Type of Consultation: Oncology 24 HR Interval Summary Free Text/Dictation Patient states that she feels better since admission and has increased energy. Exam/Review of Systems Vital Signs Vitals Vital Signs Date Time Temp Pulse Resp B/P Pulse Ox O2 Delivery O2 Flow Rate FiO2 02/23/17 07:05 98.8 67 16 117/57 100 02/21/17 08:43 Room Air Intake and Output 02/22/17 02/22/17 02/23/17 15:00 23:00 07:00 Intake Total 1040 ml 969.999 ml Balance 1040 ml 969.999 ml Exam Constitutional: alert, oriented Psych: no complaints Eyes: nl conjunctiva, nl sclera Neck: supple Respiratory: normal air movement Cardiovascular: regular rate and rhythm Gastrointestinal: soft Results Result Diagram: 02/23/17 0500 02/22/17 0410 Results 24 hrs Laboratory Tests Test 02/23/17 05:00 White Blood Count 5.4 # Red Blood Count 3.27 L Hemoglobin 10.6 L Hematocrit 32.1 L Mean Corpuscular Volume 98.2 Mean Corpuscular Hemoglobin 32.4 Mean Corpuscular Hemoglobin Concent 33.0 Red Cell Distribution Width 14.2 Platelet Count 75 L Mean Platelet Volume 11.7 H Neutrophils % 59.0 Lymphocytes % 26.8 Monocytes % 11.5 H Eosinophils % 0.6 Basophils % 0.4 Nucleated Red Blood Cells % 0.0 Neutrophils # 3.2 Lymphocytes # 1.5 Monocytes # 0.6 Eosinophils # 0.0 Basophils # 0.0 Nucleated Red Blood Cells # 0.0 Medications Medications Current Medications Oxycodone/ Acetaminophen (Endocet (10/ 325)) 1 tab Q6H PRN PO PAIN Last administered on 02/23/17 05:50; Admin Dose 1 TAB; Start 02/18/17 at 23:30 Amlodipine Besylate (Norvasc) 10 mg DAILY PO Last administered on 02/23/17 08: 51; Admin Dose 10 MG; Start 02/19/17 at 09:00 Letrozole (Femara) 2.5 mg DAILY PO Last administered on 02/23/17 08:51; Admin Dose 2.5 MG; Start 02/19/17 at 09:00 Ondansetron HCl (Zofran Inj) 4 mg Q6H PRN IV NAUSEA AND/OR VOMITING; Start 10/25 at 23:30 Heparin Sodium (Porcine) (Heparin (5000 Units/0.5 ml)) 5,000 unit BID SC ; Start 02/19/17 at 09:00 Morphine Sulfate (morphine) 3 mg Q4H PRN IV PAIN Last administered on 13:10; Admin Dose 3 MG; Start 02/18/17 at 23:30 Acetaminophen (Tylenol Tab) 650 mg Q6H PRN PO PAIN AND OR ELEVATED TEMP; Start 02/18/17 at 23:30 Alprazolam (Xanax) 0.25 mg BID PO Last administered on 02/23/17 08:50; Admin Dose 0.25 MG; Start 02/19/17 at 21:00 Clonidine (Catapres) 0.1 mg Q4H PRN PO ELEVATED SYSTOLIC BP; Start 02/19/17 at 12:00 Hydralazine HCl (Apresoline) 5 mg Q4H PRN IV ELEVATED DIASTOLIC BP; Start 02/19 at 16:00 Magnesium Oxide (Mag-Ox 400) 400 mg BID PO Last administered on 02/23/17 08:52 ; Admin Dose 400 MG; Start 02/20/17 at 21:00 Senna/Docusate Sodium (Senokot-S) 2 tab HS PO Last administered on 02/21/17 22 :24; Admin Dose 2 TAB; Start 02/20/17 at 21:00 Lactobacillus Acidophilus/ Rhamnosus (Culturelle) 1 cap BID PO Last administered on 02/23/17 08:52; Admin Dose 1 CAP; Start 02/21/17 at 09:00 Fentanyl (Duragesic 75 Mcg/Hr Patch) 1 patch Q72H TRANSDERM Last administered on 02/21/17 15:06; Admin Dose 1 PATCH; Start 02/21/17 at 15:00 Levofloxacin 500 mg 500 mg DAILY@06 NGT Last administered on 02/23/17 05:50; Admin Dose 500 MG; Start 02/22/17 at 06:00 Vancomycin HCl/ Sodium Chloride (Vancocin/NS) 250 ml @ 83.333 mls/ hr Q12H IVPB Last administered on 02/23/17 13:10; Admin Dose 83.333 MLS/HR; Start at 14:00 Phenol (Chloraseptic Throat [place]) 2 spray Q2H PRN MT SORE THROAT; Start at 13:30 Miscellaneous Information (*Rx Drug Level Order Reminder*) VANCOMYCIN TROUGH AT 0100 ONCE ONCE XX ; Start 02/24/17 at 01:00; Stop 02/24/17 at 01:01 CARLEEN IZAGUIRRE MD Feb 23, 2017 13:44
--- NOTE | 2017-02-23 15:51 | CONS ---
Date/Time of Note Date/Time of Note DATE: 02/23/17 TIME: 15:50 Assessment/Plan Assessment/Plan Chief Complaint/Hosp Course SUBJECTIVE: No acute changes, no fevers, looks comfortable MICROBIOLOGY: Blood culture negative. DIAGNOSTICS: MRI revealed right third distal phalanx osteomyelitis with cellulitis, no evidence of abscess. ANTIMICROBIALS: The patient is on IV vancomycin and Levaquin. ALLERGY: PENICILLIN. PHYSICAL EXAMINATION: GENERAL: Well-developed, obese, elderly woman who is in no distress. HEENT: Head atraumatic, normocephalic. Sclerae anicteric. Buccal mucosa dry. NECK: Supple, trachea midline. CHEST: Rise symmetrical. Breath sounds diminished. HEART: S1, S2. ABDOMEN: Soft, bowel sounds present. EXTREMITIES: Without cyanosis. ASSESSMENT: 1. Right third phalanx osteomyelitis. 2. Metastatic breast carcinoma and chemo. 3. Peripheral vascular disease. 4. Hypertension. 5. Resolving neutropenia. PLAN: The patient remains stable. Continue abx. F/u vascular/oncology rec-s [facility] staff Problems: Consultation Date/Type/Reason Admit Date/Time Feb 18, 2017 at 20:42 Initial Consult Date 02/19/17 Type of Consultation: id Exam/Review of Systems Vital Signs Vitals Vital Signs Date Time Temp Pulse Resp B/P Pulse Ox O2 Delivery O2 Flow Rate FiO2 02/23/17 07:05 98.8 67 16 117/57 100 02/21/17 08:43 Room Air Intake and Output 02/22/17 02/22/17 02/23/17 15:00 23:00 07:00 Intake Total 1040 ml 969.999 ml Balance 1040 ml 969.999 ml Results Result Diagram: 02/23/17 0500 02/22/17 0410 Results 24 hrs Laboratory Tests Test 02/23/17 05:00 White Blood Count 5.4 # Red Blood Count 3.27 L Hemoglobin 10.6 L Hematocrit 32.1 L Mean Corpuscular Volume 98.2 Mean Corpuscular Hemoglobin 32.4 Mean Corpuscular Hemoglobin Concent 33.0 Red Cell Distribution Width 14.2 Platelet Count 75 L Mean Platelet Volume 11.7 H Neutrophils % 59.0 Lymphocytes % 26.8 Monocytes % 11.5 H Eosinophils % 0.6 Basophils % 0.4 Nucleated Red Blood Cells % 0.0 Neutrophils # 3.2 Lymphocytes # 1.5 Monocytes # 0.6 Eosinophils # 0.0 Basophils # 0.0 Nucleated Red Blood Cells # 0.0 Medications Medications Current Medications Oxycodone/ Acetaminophen (Endocet (10/ 325)) 1 tab Q6H PRN PO PAIN Last administered on 02/23/17 05:50; Admin Dose 1 TAB; Start 02/18/17 at 23:30 Amlodipine Besylate (Norvasc) 10 mg DAILY PO Last administered on 02/23/17 08: 51; Admin Dose 10 MG; Start 02/19/17 at 09:00 Letrozole (Femara) 2.5 mg DAILY PO Last administered on 02/23/17 08:51; Admin Dose 2.5 MG; Start 02/19/17 at 09:00 Ondansetron HCl (Zofran Inj) 4 mg Q6H PRN IV NAUSEA AND/OR VOMITING; Start 10/25 at 23:30 Heparin Sodium (Porcine) (Heparin (5000 Units/0.5 ml)) 5,000 unit BID SC ; Start 02/19/17 at 09:00 Morphine Sulfate (morphine) 3 mg Q4H PRN IV PAIN Last administered on 13:10; Admin Dose 3 MG; Start 02/18/17 at 23:30 Acetaminophen (Tylenol Tab) 650 mg Q6H PRN PO PAIN AND OR ELEVATED TEMP; Start 02/18/17 at 23:30 Alprazolam (Xanax) 0.25 mg BID PO Last administered on 02/23/17 08:50; Admin Dose 0.25 MG; Start 02/19/17 at 21:00 Clonidine (Catapres) 0.1 mg Q4H PRN PO ELEVATED SYSTOLIC BP; Start 02/19/17 at 12:00 Hydralazine HCl (Apresoline) 5 mg Q4H PRN IV ELEVATED DIASTOLIC BP; Start 02/19 at 16:00 Magnesium Oxide (Mag-Ox 400) 400 mg BID PO Last administered on 02/23/17 08:52 ; Admin Dose 400 MG; Start 02/20/17 at 21:00 Senna/Docusate Sodium (Senokot-S) 2 tab HS PO Last administered on 02/21/17 22 :24; Admin Dose 2 TAB; Start 02/20/17 at 21:00 Lactobacillus Acidophilus/ Rhamnosus (Culturelle) 1 cap BID PO Last administered on 02/23/17 08:52; Admin Dose 1 CAP; Start 02/21/17 at 09:00 Fentanyl (Duragesic 75 Mcg/Hr Patch) 1 patch Q72H TRANSDERM Last administered on 02/21/17 15:06; Admin Dose 1 PATCH; Start 02/21/17 at 15:00 Levofloxacin 500 mg 500 mg DAILY@06 NGT Last administered on 02/23/17 05:50; Admin Dose 500 MG; Start 02/22/17 at 06:00 Vancomycin HCl/ Sodium Chloride (Vancocin/NS) 250 ml @ 83.333 mls/ hr Q12H IVPB Last administered on 02/23/17 13:10; Admin Dose 83.333 MLS/HR; Start at 14:00 Phenol (Chloraseptic Throat [place]) 2 spray Q2H PRN MT SORE THROAT; Start at 13:30 Miscellaneous Information (*Rx Drug Level Order Reminder*) VANCOMYCIN TROUGH AT 0100 ONCE ONCE XX ; Start 02/24/17 at 01:00; Stop 02/24/17 at 01:01 Famotidine (Pepcid) 20 mg BID PO ; Start 02/23/17 at 21:00 KIERRA WALKER NP Feb 23, 2017 15:50
--- NOTE | 2017-02-23 16:52 | PN ---
DATE: 02/23/2017 TIME OF EVALUATION: 1500. SUBJECTIVE DATA: The right lower extremity pain well controlled. OBJECTIVE DATA: VITAL SIGNS: Temperature 98.8, pulse of 67, respiratory rate 16, blood pressure 117/57, oxygen saturation 100% on room air. GENERAL: This is well-built, well-nourished -[place] female lying in bed in no apparent distress. HEENT: Head normocephalic and atraumatic. Eyes: Anicteric sclerae. Conjunctivae clear. ENT: Nasal septum is midline. Oral mucosa is moist. NECK: Supple. No JVD noticed. RESPIRATORY: Bilaterally clear to auscultation. No adventitious breath sounds heard. No use of accessory muscles of respiration. CARDIAC: Regular rate and rhythm. No murmurs heard. ABDOMEN: Soft, nontender and nondistended. Bowel sounds positive in all 4 quadrants. GENITOURINARY: Deferred. EXTREMITIES: No cyanosis, no clubbing. Trace right lower extremity pedal edema. Peripheral pulses, palpable pedal pulses diminished bilaterally. 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 NEUROLOGIC: The patient is awake, alert and oriented. Cranial nerves are grossly intact. LABORATORY AND DIAGNOSTIC DATA: WBC 5.4, hemoglobin 10.6, hematocrit 32.1, platelet count 75. Sodium 130, potassium 3.7, chloride 106, carbon dioxide 29, anion gap 7, BUN 7, creatinine 0.71, glucose 93, calcium 8.8. ASSESSMENT AND PLAN: 1. Right third distal phalanx osteomyelitis with surrounding cellulitis. Continue antibiotics as per Infectious Diseases. Seen and evaluated by vascular surgery. Await evaluation by podiatry. 2. Stage II estrogen receptor positive breast cancer. Status post lumpectomy. The patient being followed by oncology. Continue letrozole. 3. Essential hypertension. Continued antihypertensives. Blood pressure fairly well controlled. 4. Neutropenia. Status post Neupogen with improvement in neutrophil count. No more need for any negative isolation. 5. Thrombocytopenia, most probably secondary to underlying cancer and chemotherapy. Monitor for any evidence of bleeding. 6. Normocytic normochromic anemia. We will monitor the H and H closely. Transfuse as needed. 7. Fluid, electrolytes and nutrition. Continue regular diet. 8. Deep venous thrombosis prophylaxis. Subcutaneous heparin. 9. Gastrointestinal prophylaxis. Histamine 2 receptor blockers. 10. Continue antibiotics as per infectious diseases. Await further recommendations from podiatry. Case discussed with Dr. Almeida. SANTOS ALMEIDA MD, AM/BETSY Conf#: [id number] DID#: [id number] MTDD
[2017-02-23 17:42] LABS: CALCIUM 9.1 mg/dl (8.4-10.2); CREATININE 0.68 mg/dl (0.44-1.00); POTASSIUM 3.5 mmol/L (3.5-5.1)
--- NOTE | 2017-02-23 17:48 | PN ---
Date/Time of Note Date/Time of Note DATE: 02/23/17 TIME: 17:44 Assessment/Plan Lines/Catheters IV Catheter Type (from [facility]): Saline Lock Ly in Place (from [facility]): No Assessment/Plan Chief Complaint/Hosp Course -Bilateral lower extremity atherosclerosis with right lower extremity gangrene. It seems the patient has developed right foot infection with second toe tissue loss. Arterial duplex demonstrated some infrainguinal disease however with triphasic flow distally. At the moment continue with wound care and antibiotics. Will plan to follow progress and re-evaluate - Optimize vascular status (BP meds, nutrition, exercise, sugar control, and antiplatelet). -Discussed findings, plan, and management with the patient, and she understands. -Thank you for allowing us to partake in the care of your patient. Please call with any questions. -Will discuss her prognosis with our hematology/oncology colleagues for any further intervention from a chemotherapy standpoint and her course of antibiotics. Problems: Subjective 24 Hr Interval Summary no new vascular events overnight Exam/Review of Systems Vital Signs Vitals Vital Signs Date Time Temp Pulse Resp B/P Pulse Ox O2 Delivery O2 Flow Rate FiO2 02/23/17 07:05 98.8 67 16 117/57 100 02/21/17 08:43 Room Air Intake and Output 02/22/17 02/22/17 02/23/17 15:00 23:00 07:00 Intake Total 1040 ml 969.999 ml Balance 1040 ml 969.999 ml Exam Free Text/Dictation GENERAL: Alert and oriented x3, PULMONARY: Clear to auscultation bilaterally CARDIOVASCULAR: S1, S2 present. ABDOMEN: Soft, nontender, nondistended. Bowel sounds positive. EXTREMITIES: RIGHT LOWER EXTREMITY: Palpable femoral pulse, nonpalpable pedal pulse. Motor , sensory intact. Cap refill 3 to 4 seconds. There is a previous amputation of the second and fourth toe. Third toe with tissue loss and eschar, surrounding erythema and tenderness. LEFT LOWER EXTREMITY: Palpable femoral pulse, nonpalpable pedal pulse. Motor, sensory intact. Cap refill 3 to 4 seconds. No ulcers; however, the first toe is deformed. Results Result Diagram: 02/23/17 0500 02/22/17 0410 MARIA TERESA RAMEY MD Feb 23, 2017 17:48
[2017-02-23 20:03] VITALS: BP 161/57; RESP 18
[2017-02-23] MEDS: SENNA/DOCUSATE NA (8.6MG/50MG) TAB PO SCH ×2 (20:32→20:39)
[2017-02-23] MEDS: FAMOTIDINE 20 MG TAB PO SCH (20:32)
[2017-02-23 20:47] VITALS: BP 140/64; PULSE 84
--- NOTE | 2017-02-23 23:52 | CONS ---
Date/Time of Note Date/Time of Note DATE: 02/23/17 TIME: 23:52 Assessment/Plan Assessment/Plan Problems: (1) Acquired absence of other right toe(s) (2) Osteomyelitis of toe of right foot Status: Acute (3) History of DVT (deep vein thrombosis) Status: Chronic (4) Pain of toe Status: Acute Additional Assessment/Plan Patient is not amenable to any type of amputation at this time. She would like me to recommend whatever it takes to keep her foot. I have reviewed her MRI which shows distal right third toe signal intensity. With patient's clinical findings, she has osteomyelitis of the right third toe. I will recommend course of 6-12 weeks of IV antibiotics. Patient will require PICC line and visiting nurse service. She may also qualify for hyperbaric oxygen treatment. Patient will be followed in-house. Consultation Date/Type/Reason Admit Date/Time Feb 18, 2017 at 20:42 Psychological: no complaints Past Medical History Medical History: high cholesterol, hypertension Past Surgical History Past Surgical Hx: other (toe amputations) Social History Alcohol Use: none Smoking Status: Never smoker Drug Use: none Exam/Review of Systems Vital Signs Vitals Vital Signs Date Time Temp Pulse Resp B/P Pulse Ox O2 Delivery O2 Flow Rate FiO2 02/23/17 20:47 84 140/64 02/23/17 20:03 98.3 18 100 02/21/17 08:43 Room Air Intake and Output 02/22/17 02/22/17 02/23/17 15:00 23:00 07:00 Intake Total 1040 ml 969.999 ml Balance 1040 ml 969.999 ml Results Result Diagram: 02/23/17 0500 02/23/17 0500 Results 24 hrs Laboratory Tests Test 02/23/17 05:00 White Blood Count 5.4 # Red Blood Count 3.27 L Hemoglobin 10.6 L Hematocrit 32.1 L Mean Corpuscular Volume 98.2 Mean Corpuscular Hemoglobin 32.4 Mean Corpuscular Hemoglobin Concent 33.0 Red Cell Distribution Width 14.2 Platelet Count 75 L Mean Platelet Volume 11.7 H Neutrophils % 59.0 Lymphocytes % 26.8 Monocytes % 11.5 H Eosinophils % 0.6 Basophils % 0.4 Nucleated Red Blood Cells % 0.0 Neutrophils # 3.2 Lymphocytes # 1.5 Monocytes # 0.6 Eosinophils # 0.0 Basophils # 0.0 Nucleated Red Blood Cells # 0.0 Sodium Level 139 Potassium Level 3.5 Chloride Level 108 Carbon Dioxide Level 26 Anion Gap 9 Blood Urea Nitrogen 10 Creatinine 0.68 Glucose Level 99 Calcium Level 9.1 Medications Medications Current Medications Oxycodone/ Acetaminophen (Endocet (10/ 325)) 1 tab Q6H PRN PO PAIN Last administered on 02/23/17 20:52; Admin Dose 1 TAB; Start 02/18/17 at 23:30 Amlodipine Besylate (Norvasc) 10 mg DAILY PO Last administered on 02/23/17 08: 51; Admin Dose 10 MG; Start 02/19/17 at 09:00 Letrozole (Femara) 2.5 mg DAILY PO Last administered on 02/23/17 08:51; Admin Dose 2.5 MG; Start 02/19/17 at 09:00 Ondansetron HCl (Zofran Inj) 4 mg Q6H PRN IV NAUSEA AND/OR VOMITING; Start 10/25 at 23:30 Heparin Sodium (Porcine) (Heparin (5000 Units/0.5 ml)) 5,000 unit BID SC ; Start 02/19/17 at 09:00 Morphine Sulfate (morphine) 3 mg Q4H PRN IV PAIN Last administered on 17:43; Admin Dose 3 MG; Start 02/18/17 at 23:30 Acetaminophen (Tylenol Tab) 650 mg Q6H PRN PO PAIN AND OR ELEVATED TEMP; Start 02/18/17 at 23:30 Alprazolam (Xanax) 0.25 mg BID PO Last administered on 02/23/17 20:32; Admin Dose 0.25 MG; Start 02/19/17 at 21:00 Clonidine (Catapres) 0.1 mg Q4H PRN PO ELEVATED SYSTOLIC BP; Start 02/19/17 at 12:00 Hydralazine HCl (Apresoline) 5 mg Q4H PRN IV ELEVATED DIASTOLIC BP; Start 02/19 at 16:00 Magnesium Oxide (Mag-Ox 400) 400 mg BID PO Last administered on 02/23/17 20:32 ; Admin Dose 400 MG; Start 02/20/17 at 21:00 Senna/Docusate Sodium (Senokot-S) 2 tab HS PO Last administered on 02/21/17 22 :24; Admin Dose 2 TAB; Start 02/20/17 at 21:00 Lactobacillus Acidophilus/ Rhamnosus (Culturelle) 1 cap BID PO Last administered on 02/23/17 20:32; Admin Dose 1 CAP; Start 02/21/17 at 09:00 Fentanyl (Duragesic 75 Mcg/Hr Patch) 1 patch Q72H TRANSDERM Last administered on 02/21/17 15:06; Admin Dose 1 PATCH; Start 02/21/17 at 15:00 Levofloxacin 500 mg 500 mg DAILY@06 NGT Last administered on 02/23/17 05:50; Admin Dose 500 MG; Start 02/22/17 at 06:00 Vancomycin HCl/ Sodium Chloride (Vancocin/NS) 250 ml @ 83.333 mls/ hr Q12H IVPB Last administered on 02/23/17 13:10; Admin Dose 83.333 MLS/HR; Start at 14:00 Phenol (Chloraseptic Throat [place]) 2 spray Q2H PRN MT SORE THROAT; Start at 13:30 Miscellaneous Information (*Rx Drug Level Order Reminder*) VANCOMYCIN TROUGH AT 0100 ONCE ONCE XX ; Start 02/24/17 at 01:00; Stop 02/24/17 at 01:01 Famotidine (Pepcid) 20 mg BID PO Last administered on 02/23/17 20:32; Admin Dose 20 MG; Start 02/23/17 at 21:00 ANDREW WOODWARD DPM Feb 23, 2017 23:52
[2017-02-24] MEDS: VANCOMYCIN 1.25 GM in SOD CHLORIDE 0.9% 250 ML IVPB SCH ×2 (02:02→14:11)
[2017-02-24] MEDS: morphine 4 MG/ML VIAL IV PRN ×4 (04:38→20:12)
[2017-02-24 04:56] LABS: ADD SCAN DIFF NO
[2017-02-24 05:31] LABS: CALCIUM 8.8 mg/dl (8.4-10.2); CREATININE 0.67 mg/dl (0.44-1.00); POTASSIUM 3.6 mmol/L (3.5-5.1)
[2017-02-24 05:31] LABS: MAGNESIUM 1.5 mg/dl (1.7-2.5)
[2017-02-24 05:39] LABS: ABNORMAL IP MESSAGE 1; HEMOGLOBIN 10.9 g/dl (12.0-16.0); MEAN CORPUSCULAR HEMOGLOBIN 31.9 pg (29.0-33.0); MEAN CORPUSCULAR VOLUME 96.5 fl (82.0-101.0); MEAN PLATELET VOLUME 10.4 fl (7.4-10.4); PLATELET COUNT 74 10^3/UL (140-415); RED BLOOD COUNT 3.42 10^6/ul (4.20-5.40); WHITE BLOOD COUNT 3.3 10^3/ul (4.8-10.8)
[2017-02-24] MEDS: LEVOFLOXACIN 500 MG TAB NGT SCH (06:00)
[2017-02-24 07:25] VITALS: BP 135/67; RESP 18
[2017-02-24] MEDS: HEPARIN 5,000 UNIT/0.5 ML VIAL SC SCH ×3 (09:00→20:25)
--- NOTE | 2017-02-24 09:07 | CONS ---
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 She now is admitted with third distal right phalanx osteomyelitis, may need toe amputation. - Tumor markers have decreased/stabilized and patient had treatment response as of CT scan 10/10/16. CA 27-29 is 27 (02/20/17), down from 30 on 02/06/17. CA 15-3 pending. Prognosis is fair from oncology perspective given prior treatment response and stability based on markers; pending restaging CT scan as below. - WBC 3.3 today, ANC 1.3, will give one dose of neupogen today to keep ANC > 1000 given toe osteomyelitis. - Will plan for CT CAP with contrast with Ativan prior prior to discharge. Will hold off for now given patient only has one IV and pt receiving IV antibiotics. - May continue letrozole while in house as letrozole should not contribute to neutropenia. - received neupogen given neutropenia with osteomyelitis. Patient given 2 doses neupogen, now ANC 8.9, off neupogen. Discontinue neutropenic precautions - Continue broad spectrum antibiotics per primary team # Depression/Anxiety stable. Problems: Consultation Date/Type/Reason Admit Date/Time Feb 18, 2017 at 20:42 Initial Consult Date 02/19/17 Type of Consultation: Oncology 24 HR Interval Summary Free Text/Dictation Patient states that she has a little bit less energy today. Exam/Review of Systems Vital Signs Vitals Vital Signs Date Time Temp Pulse Resp B/P Pulse Ox O2 Delivery O2 Flow Rate FiO2 02/24/17 07:25 98.6 72 18 135/67 100 02/21/17 08:43 Room Air Intake and Output 02/23/17 02/23/17 02/24/17 15:00 23:00 07:00 Intake Total 1030 ml 550 ml Balance 1030 ml 550 ml Exam Constitutional: alert, oriented Psych: no complaints Eyes: nl conjunctiva, nl sclera Neck: supple Respiratory: normal air movement Cardiovascular: regular rate and rhythm Gastrointestinal: soft Results Result Diagram: 02/24/17 0420 02/24/17 0445 Results 24 hrs Laboratory Tests Test 02/24/17 00:25 02/24/17 04:20 02/24/17 04:30 02/24/17 04:45 Vancomycin Level Trough 14.1 White Blood Count 3.3 #L Red Blood Count 3.42 L Hemoglobin 10.9 L Hematocrit 33.0 L Mean Corpuscular Volume 96.5 Mean Corpuscular Hemoglobin 31.9 Mean Corpuscular Hemoglobin Concent 33.0 Red Cell Distribution Width 14.0 Platelet Count 74 L Mean Platelet Volume 10.4 Neutrophils % Lymphocytes % Monocytes % Eosinophils % Neutrophils # Lymphocytes # Monocytes # Eosinophils # Phosphorus Level 4.0 Magnesium Level 1.5 L Sodium Level 141 Potassium Level 3.6 Chloride Level 104 Carbon Dioxide Level 27 Anion Gap 14 Blood Urea Nitrogen 7 Creatinine 0.67 Glucose Level 92 Calcium Level 8.8 Medications Medications Current Medications Oxycodone/ Acetaminophen (Endocet (10/ 325)) 1 tab Q6H PRN PO PAIN Last administered on 02/23/17 20:52; Admin Dose 1 TAB; Start 02/18/17 at 23:30 Amlodipine Besylate (Norvasc) 10 mg DAILY PO Last administered on 02/23/17 08: 51; Admin Dose 10 MG; Start 02/19/17 at 09:00 Letrozole (Femara) 2.5 mg DAILY PO Last administered on 02/23/17 08:51; Admin Dose 2.5 MG; Start 02/19/17 at 09:00 Ondansetron HCl (Zofran Inj) 4 mg Q6H PRN IV NAUSEA AND/OR VOMITING; Start 10/25 at 23:30 Heparin Sodium (Porcine) (Heparin (5000 Units/0.5 ml)) 5,000 unit BID SC ; Start 02/19/17 at 09:00 Morphine Sulfate (morphine) 3 mg Q4H PRN IV PAIN Last administered on 04:38; Admin Dose 3 MG; Start 02/18/17 at 23:30 Acetaminophen (Tylenol Tab) 650 mg Q6H PRN PO PAIN AND OR ELEVATED TEMP; Start 02/18/17 at 23:30 Alprazolam (Xanax) 0.25 mg BID PO Last administered on 02/23/17 20:32; Admin Dose 0.25 MG; Start 02/19/17 at 21:00 Clonidine (Catapres) 0.1 mg Q4H PRN PO ELEVATED SYSTOLIC BP; Start 02/19/17 at 12:00 Hydralazine HCl (Apresoline) 5 mg Q4H PRN IV ELEVATED DIASTOLIC BP; Start 02/19 at 16:00 Magnesium Oxide (Mag-Ox 400) 400 mg BID PO Last administered on 02/23/17 20:32 ; Admin Dose 400 MG; Start 02/20/17 at 21:00 Senna/Docusate Sodium (Senokot-S) 2 tab HS PO Last administered on 02/21/17 22 :24; Admin Dose 2 TAB; Start 02/20/17 at 21:00 Lactobacillus Acidophilus/ Rhamnosus (Culturelle) 1 cap BID PO Last administered on 02/23/17 20:32; Admin Dose 1 CAP; Start 02/21/17 at 09:00 Fentanyl (Duragesic 75 Mcg/Hr Patch) 1 patch Q72H TRANSDERM Last administered on 02/21/17 15:06; Admin Dose 1 PATCH; Start 02/21/17 at 15:00 Levofloxacin 500 mg 500 mg DAILY@06 NGT Last administered on 02/24/17 06:00; Admin Dose 500 MG; Start 02/22/17 at 06:00 Vancomycin HCl/ Sodium Chloride (Vancocin/NS) 250 ml @ 83.333 mls/ hr Q12H IVPB Last administered on 02/24/17 02:02; Admin Dose 83.333 MLS/HR; Start at 14:00 Phenol (Chloraseptic Throat [place]) 2 spray Q2H PRN MT SORE THROAT; Start at 13:30 Famotidine (Pepcid) 20 mg BID PO Last administered on 02/23/17 20:32; Admin Dose 20 MG; Start 02/23/17 at 21:00 CARLEEN IZAGUIRRE MD Feb 24, 2017 09:07
--- NOTE | 2017-02-24 09:54 | PN ---
Date/Time of Note Date/Time of Note DATE: 02/24/17 TIME: 09:52 Assessment/Plan Lines/Catheters IV Catheter Type (from [facility]): Saline Lock Ly in Place (from [facility]): No Assessment/Plan Chief Complaint/Hosp Course -Bilateral lower extremity atherosclerosis with right lower extremity gangrene. It seems the patient has developed right foot infection with second toe tissue loss. Arterial duplex demonstrated some infrainguinal disease however with triphasic flow distally. At the moment continue with wound care and antibiotics. Will plan to follow progress and re-evaluate. -No further vascular surgery intervention at this time. can follow up as outpatient for wound progress -Optimize vascular status (BP meds, nutrition, exercise, sugar control, and antiplatelet). -Discussed findings, plan, and management with the patient, and she understands. -Thank you for allowing us to partake in the care of your patient. Please call with any questions. -Will discuss her prognosis with our hematology/oncology colleagues for any further intervention from a chemotherapy standpoint and her course of antibiotics. Problems: Subjective 24 Hr Interval Summary no new vascular events overnight Exam/Review of Systems Vital Signs Vitals Vital Signs Date Time Temp Pulse Resp B/P Pulse Ox O2 Delivery O2 Flow Rate FiO2 02/24/17 07:25 98.6 72 18 135/67 100 02/21/17 08:43 Room Air Intake and Output 02/23/17 02/23/17 02/24/17 15:00 23:00 07:00 Intake Total 1030 ml 550 ml Balance 1030 ml 550 ml Exam Free Text/Dictation GENERAL: Alert and oriented x3, PULMONARY: Clear to auscultation bilaterally CARDIOVASCULAR: S1, S2 present. ABDOMEN: Soft, nontender, nondistended. Bowel sounds positive. EXTREMITIES: RIGHT LOWER EXTREMITY: Palpable femoral pulse, nonpalpable pedal pulse. Motor , sensory intact. Cap refill 3 to 4 seconds. There is a previous amputation of the second and fourth toe. Third toe with tissue loss and eschar, surrounding erythema and tenderness improving. LEFT LOWER EXTREMITY: Palpable femoral pulse, nonpalpable pedal pulse. Motor, sensory intact. Cap refill 3 to 4 seconds. No ulcers; however, the first toe is deformed. Results Result Diagram: 02/24/17 0420 02/24/17 0445 MARIA TERESA RAMEY MD Feb 24, 2017 09:53
[2017-02-24] MEDS: ALPRAZOLAM 0.25 MG TAB PO SCH ×2 (09:57→20:21)
[2017-02-24] MEDS: LACTOBACILLUS RHAMNOSUS CAP PO SCH ×2 (09:57→20:21)
[2017-02-24] MEDS: FAMOTIDINE 20 MG TAB PO SCH ×2 (09:57→20:21)
[2017-02-24] MEDS: MAGNESIUM OXIDE 400 MG TAB PO SCH ×2 (09:57→20:21)
[2017-02-24] MEDS: LETROZOLE 2.5 MG TAB PO SCH (09:59)
[2017-02-24] MEDS: AMLODIPINE 10 MG TAB PO SCH (10:00)
[2017-02-24 10:04] LABS: LYMPHOCYTES # 1.2 10^3/ul (0.8-2.9); MONOCYTE # 0.7 10^3/ul (0.3-0.9); NEUTROPHIL # 1.3 10^3/ul (1.6-7.5); PLATELET ESTIMATE PLT APPEAR DECREASED
--- NOTE | 2017-02-24 10:46 | PN ---
Date/Time of Note Date/Time of Note DATE: 02/24/17 TIME: 10:36 Assessment/Plan VTE Prophylaxis VTE Prophylaxis Intervention: heparin Lines/Catheters IV C[facility]ter Type (from [facility]): Saline Lock Urinary Cath still in place: No Assessment/Plan Assessment/Plan 1. Right Third Phalax osteomyelitis - Cont Broad spectrum abx. - Seen by Vascular. Appreciate recommendation. No further vascular surgery intervention at this time. can follow up as outpatient for wound progress - Pain mgmt as needed 2. Metastatic Breast Cancer: cont Letrozole - Oncology following 3. HTN: BP within goal - Cont med and adjust as needed 4. Neuropenia: resolved s/p neupogen, but pt is leukopenic today - cont to monitor - neupogen as needed per Oncology 5. Thrombocytopenia: PLT stable - No sign of active bleeding - transfuse as needed 6. Hypomagnesemia - Replete DVT ppx: Subq Heparin Subjective 24 Hr Interval Summary Free Text/Dictation No acute events overnight. denied pain Exam/Review of Systems Vital Signs Vitals Vital Signs Date Time Temp Pulse Resp B/P Pulse Ox O2 Delivery O2 Flow Rate FiO2 02/24/17 07:25 98.6 72 18 135/67 100 02/21/17 08:43 Room Air Intake and Output 02/23/17 02/23/17 02/24/17 15:00 23:00 07:00 Intake Total 1030 ml 550 ml Balance 1030 ml 550 ml Exam Constitutional: alert, oriented, well developed Eyes: EOMI, PERRL Respiratory: clear to auscultation, normal air movement Cardiovascular: nl pulses, regular rate and rhythm Gastrointestinal: non-tender, soft Extremities: other (Amputation of second and fourth digits of the right foot, third digit with thickened nail slight skin color change to the distal pad, abrasion of skin to the dorsal proximal digit. No erythema, no edema, no signs of gangrene, no eschar, no discharge) Results Result Diagram: 02/24/17 0420 02/24/17 0445 Results 24 hrs Laboratory Tests Test 02/24/17 00:25 02/24/17 04:20 02/24/17 04:30 02/24/17 04:45 Vancomycin Level Trough 14.1 White Blood Count 3.3 #L Red Blood Count 3.42 L Hemoglobin 10.9 L Hematocrit 33.0 L Mean Corpuscular Volume 96.5 Mean Corpuscular Hemoglobin 31.9 Mean Corpuscular Hemoglobin Concent 33.0 Red Cell Distribution Width 14.0 Platelet Count 74 L Mean Platelet Volume 10.4 Neutrophils % 40.0 Lymphocytes % 37.0 Monocytes % 22.0 H Eosinophils % Metamyelocytes % 1.0 H Neutrophils # 1.3 L Lymphocytes # 1.2 Monocytes # 0.7 Eosinophils # Metamyelocytes # 0.0 Platelet Estimate PLT APPEAR DECREASED Phosphorus Level 4.0 Magnesium Level 1.5 L Sodium Level 141 Potassium Level 3.6 Chloride Level 104 Carbon Dioxide Level 27 Anion Gap 14 Blood Urea Nitrogen 7 Creatinine 0.67 Glucose Level 92 Calcium Level 8.8 Medications Medications Current Medications Oxycodone/ Acetaminophen (Endocet (10/ 325)) 1 tab Q6H PRN PO PAIN Last administered on 02/23/17 20:52; Admin Dose 1 TAB; Start 02/18/17 at 23:30 Amlodipine Besylate (Norvasc) 10 mg DAILY PO Last administered on 02/24/17 10: 00; Admin Dose 10 MG; Start 02/19/17 at 09:00 Letrozole (Femara) 2.5 mg DAILY PO Last administered on 02/24/17 09:59; Admin Dose 2.5 MG; Start 02/19/17 at 09:00 Ondansetron HCl (Zofran Inj) 4 mg Q6H PRN IV NAUSEA AND/OR VOMITING; Start 10/25 at 23:30 Heparin Sodium (Porcine) (Heparin (5000 Units/0.5 ml)) 5,000 unit BID SC ; Start 02/19/17 at 09:00 Morphine Sulfate (morphine) 3 mg Q4H PRN IV PAIN Last administered on 10:08; Admin Dose 3 MG; Start 02/18/17 at 23:30 Acetaminophen (Tylenol Tab) 650 mg Q6H PRN PO PAIN AND OR ELEVATED TEMP; Start 02/18/17 at 23:30 Alprazolam (Xanax) 0.25 mg BID PO Last administered on 02/24/17 09:57; Admin Dose 0.25 MG; Start 02/19/17 at 21:00 Clonidine (Catapres) 0.1 mg Q4H PRN PO ELEVATED SYSTOLIC BP; Start 02/19/17 at 12:00 Hydralazine HCl (Apresoline) 5 mg Q4H PRN IV ELEVATED DIASTOLIC BP; Start 02/19 at 16:00 Magnesium Oxide (Mag-Ox 400) 400 mg BID PO Last administered on 02/24/17 09:57 ; Admin Dose 400 MG; Start 02/20/17 at 21:00 Senna/Docusate Sodium (Senokot-S) 2 tab HS PO Last administered on 02/21/17 22 :24; Admin Dose 2 TAB; Start 02/20/17 at 21:00 Lactobacillus Acidophilus/ Rhamnosus (Culturelle) 1 cap BID PO Last administered on 02/24/17 09:57; Admin Dose 1 CAP; Start 02/21/17 at 09:00 Fentanyl (Duragesic 75 Mcg/Hr Patch) 1 patch Q72H TRANSDERM Last administered on 02/21/17 15:06; Admin Dose 1 PATCH; Start 02/21/17 at 15:00 Levofloxacin 500 mg 500 mg DAILY@06 NGT Last administered on 02/24/17 06:00; Admin Dose 500 MG; Start 02/22/17 at 06:00 Vancomycin HCl/ Sodium Chloride (Vancocin/NS) 250 ml @ 83.333 mls/ hr Q12H IVPB Last administered on 02/24/17 02:02; Admin Dose 83.333 MLS/HR; Start at 14:00 Phenol (Chloraseptic Throat [place]) 2 spray Q2H PRN MT SORE THROAT; Start at 13:30 Famotidine (Pepcid) 20 mg BID PO Last administered on 02/24/17 09:57; Admin Dose 20 MG; Start 02/23/17 at 21:00 EDMAR JARQUIN MD Feb 24, 2017 10:45
[2017-02-24] MEDS ORDERED: FILGRASTIM 480 MCG INJ SC ONE (12:30)
[2017-02-24] MEDS ORDERED: MAGNESIUM SULFATE 2 GM/50 ML 50 ML IVPB ONE (15:30)
[2017-02-24] MEDS: FENTAnyl PATCH 75 MCG/HR TRANSDERM SCH (17:13)
--- NOTE | 2017-02-24 17:44 | CONS ---
Date/Time of Note Date/Time of Note DATE: 02/24/17 TIME: 17:43 Assessment/Plan Assessment/Plan Chief Complaint/Hosp Course SUBJECTIVE: No acute changes, no fevers, looks comfortable MICROBIOLOGY: Blood culture negative. DIAGNOSTICS: MRI revealed right third distal phalanx osteomyelitis with cellulitis, no evidence of abscess. ANTIMICROBIALS: The patient is on IV vancomycin and Levaquin. ALLERGY: PENICILLIN. PHYSICAL EXAMINATION: GENERAL: Well-developed, obese, elderly woman who is in no distress. HEENT: Head atraumatic, normocephalic. Sclerae anicteric. Buccal mucosa dry. NECK: Supple, trachea midline. CHEST: Rise symmetrical. Breath sounds diminished. HEART: S1, S2. ABDOMEN: Soft, bowel sounds present. EXTREMITIES: Without cyanosis. ASSESSMENT: 1. Right third phalanx osteomyelitis. 2. Metastatic breast carcinoma and chemo. 3. Peripheral vascular disease. 4. Hypertension. 5. Resolving neutropenia. PLAN: The patient remains stable. No surgical intervention per vascular and podiatry, recommend PICC with 6 weeks abx DW staff Problems: Consultation Date/Type/Reason Admit Date/Time Feb 18, 2017 at 20:42 Initial Consult Date 02/19/17 Type of Consultation: id Exam/Review of Systems Vital Signs Vitals Vital Signs Date Time Temp Pulse Resp B/P Pulse Ox O2 Delivery O2 Flow Rate FiO2 02/24/17 07:25 98.6 72 18 135/67 100 02/21/17 08:43 Room Air Intake and Output 02/23/17 02/23/17 02/24/17 15:00 23:00 07:00 Intake Total 1030 ml 550 ml Balance 1030 ml 550 ml Results Result Diagram: 02/24/17 0420 02/24/17 0445 Results 24 hrs Laboratory Tests Test 02/24/17 00:25 02/24/17 04:20 02/24/17 04:30 02/24/17 04:45 Vancomycin Level Trough 14.1 White Blood Count 3.3 #L Red Blood Count 3.42 L Hemoglobin 10.9 L Hematocrit 33.0 L Mean Corpuscular Volume 96.5 Mean Corpuscular Hemoglobin 31.9 Mean Corpuscular Hemoglobin Concent 33.0 Red Cell Distribution Width 14.0 Platelet Count 74 L Mean Platelet Volume 10.4 Neutrophils % 40.0 Lymphocytes % 37.0 Monocytes % 22.0 H Eosinophils % Metamyelocytes % 1.0 H Neutrophils # 1.3 L Lymphocytes # 1.2 Monocytes # 0.7 Eosinophils # Metamyelocytes # 0.0 Platelet Estimate PLT APPEAR DECREASED Phosphorus Level 4.0 Magnesium Level 1.5 L Sodium Level 141 Potassium Level 3.6 Chloride Level 104 Carbon Dioxide Level 27 Anion Gap 14 Blood Urea Nitrogen 7 Creatinine 0.67 Glucose Level 92 Calcium Level 8.8 Medications Medications Current Medications Oxycodone/ Acetaminophen (Endocet (10/ 325)) 1 tab Q6H PRN PO PAIN Last administered on 02/23/17 20:52; Admin Dose 1 TAB; Start 02/18/17 at 23:30 Amlodipine Besylate (Norvasc) 10 mg DAILY PO Last administered on 02/24/17 10: 00; Admin Dose 10 MG; Start 02/19/17 at 09:00 Letrozole (Femara) 2.5 mg DAILY PO Last administered on 02/24/17 09:59; Admin Dose 2.5 MG; Start 02/19/17 at 09:00 Ondansetron HCl (Zofran Inj) 4 mg Q6H PRN IV NAUSEA AND/OR VOMITING; Start 10/25 at 23:30 Heparin Sodium (Porcine) (Heparin (5000 Units/0.5 ml)) 5,000 unit BID SC ; Start 02/19/17 at 09:00 Morphine Sulfate (morphine) 3 mg Q4H PRN IV PAIN Last administered on 14:11; Admin Dose 3 MG; Start 02/18/17 at 23:30 Acetaminophen (Tylenol Tab) 650 mg Q6H PRN PO PAIN AND OR ELEVATED TEMP; Start 02/18/17 at 23:30 Alprazolam (Xanax) 0.25 mg BID PO Last administered on 02/24/17 09:57; Admin Dose 0.25 MG; Start 02/19/17 at 21:00 Clonidine (Catapres) 0.1 mg Q4H PRN PO ELEVATED SYSTOLIC BP; Start 02/19/17 at 12:00 Hydralazine HCl (Apresoline) 5 mg Q4H PRN IV ELEVATED DIASTOLIC BP; Start 02/19 at 16:00 Magnesium Oxide (Mag-Ox 400) 400 mg BID PO Last administered on 02/24/17 09:57 ; Admin Dose 400 MG; Start 02/20/17 at 21:00 Senna/Docusate Sodium (Senokot-S) 2 tab HS PO Last administered on 02/21/17 22 :24; Admin Dose 2 TAB; Start 02/20/17 at 21:00 Lactobacillus Acidophilus/ Rhamnosus (Culturelle) 1 cap BID PO Last administered on 02/24/17 09:57; Admin Dose 1 CAP; Start 02/21/17 at 09:00 Fentanyl (Duragesic 75 Mcg/Hr Patch) 1 patch Q72H TRANSDERM Last administered on 02/24/17 17:13; Admin Dose 1 PATCH; Start 02/21/17 at 15:00 Levofloxacin 500 mg 500 mg DAILY@06 NGT Last administered on 02/24/17 06:00; Admin Dose 500 MG; Start 02/22/17 at 06:00 Vancomycin HCl/ Sodium Chloride (Vancocin/NS) 250 ml @ 83.333 mls/ hr Q12H IVPB Last administered on 02/24/17 14:11; Admin Dose 83.333 MLS/HR; Start at 14:00 Phenol (Chloraseptic Throat [place]) 2 spray Q2H PRN MT SORE THROAT; Start at 13:30 Famotidine (Pepcid) 20 mg BID PO Last administered on 02/24/17 09:57; Admin Dose 20 MG; Start 02/23/17 at 21:00 KIERRA WALKER NP Feb 24, 2017 17:44
[2017-02-24] MEDS: SENNA/DOCUSATE NA (8.6MG/50MG) TAB PO SCH (20:25)
[2017-02-24 23:01] VITALS: BP 138/64; RESP 18
[2017-02-25] MEDS: VANCOMYCIN 1.25 GM in SOD CHLORIDE 0.9% 250 ML IVPB SCH ×2 (01:58→13:24)
[2017-02-25] MEDS: morphine 4 MG/ML VIAL IV PRN ×3 (03:09→22:22)
[2017-02-25] MEDS: LEVOFLOXACIN 500 MG TAB NGT SCH (05:39)
[2017-02-25 05:42] LABS: ADD SCAN DIFF NO
[2017-02-25 05:52] LABS: ABNORMAL IP MESSAGE 1; BASOPHIL # 0.1 10^3/ul (0.0-0.1); BASOPHILS % 0.6 % (0.0-2.0); EOSINOPHILS % 0.1 % (0.0-7.0); HEMATOCRIT 36.3 % (37.0-47.0); LYMPHOCYTES # 1.4 10^3/ul (0.8-2.9); LYMPHOCYTES % 7.3 % (15.0-51.0); MEAN CORPUSCULAR HEMOGLOBIN 31.7 pg (29.0-33.0); MEAN CORPUSCULAR HGB CONC 33.1 g/dl (32.0-37.0); MEAN CORPUSCULAR VOLUME 95.8 fl (82.0-101.0); MEAN PLATELET VOLUME 11.2 fl (7.4-10.4); MONOCYTE # 1.4 10^3/ul (0.3-0.9); MONOCYTES % 7.3 % (0.0-11.0); NEUTROPHIL # 15.8 10^3/ul (1.6-7.5); NEUTROPHILS % 82.4 % (39.0-77.0); NUCLEATED RED BLOOD CELLS% 0.1 /100WBC (0.0-0.0); PLATELET COUNT 101 10^3/UL (140-415); RED BLOOD COUNT 3.79 10^6/ul (4.20-5.40); RED CELL DISTRIBUTION WIDTH 13.8 % (11.5-14.5); WHITE BLOOD COUNT 19.2 10^3/ul (4.8-10.8)
[2017-02-25 06:00] LABS: POTASSIUM 4.1 mmol/L (3.5-5.1)
[2017-02-25 06:02] LABS: CREATININE 0.7 mg/dl (0.44-1.00)
[2017-02-25 06:03] LABS: CALCIUM 8.9 mg/dl (8.4-10.2)
[2017-02-25 07:35] VITALS: BP 118/60; RESP 18
[2017-02-25] MEDS: HEPARIN 5,000 UNIT/0.5 ML VIAL SC SCH ×2 (09:00→21:00)
[2017-02-25] MEDS: ALPRAZOLAM 0.25 MG TAB PO SCH ×2 (09:07→22:02)
[2017-02-25] MEDS: LACTOBACILLUS RHAMNOSUS CAP PO SCH ×2 (09:07→22:02)
[2017-02-25] MEDS: AMLODIPINE 10 MG TAB PO SCH (09:07)
[2017-02-25] MEDS: FAMOTIDINE 20 MG TAB PO SCH ×2 (09:07→22:02)
[2017-02-25] MEDS: LETROZOLE 2.5 MG TAB PO SCH (09:07)
[2017-02-25] MEDS: MAGNESIUM OXIDE 400 MG TAB PO SCH ×2 (09:07→22:02)
--- NOTE | 2017-02-25 11:15 | PN ---
Date/Time of Note Date/Time of Note DATE: 02/25/17 TIME: 11:15 Assessment/Plan VTE Prophylaxis VTE Prophylaxis Intervention: heparin Lines/Catheters IV [facility]from [facility] Urinary Cath still in place: No Assessment/Plan Chief Complaint/Hosp Course 1. Right third distal phalanx or osteomyelitis with surrounding cellulitis. Continue antibiotics as per Infectious Diseases. Seen and evaluated by vascular surgery. 2. Stage II estrogen receptor positive breast cancer. Status post lumpectomy. The patient being followed by oncology. Continue letrozole. 3. Essential hypertension. Blood pressure well controlled with antihypertensives. 4. Neutropenia. Status post Neupogen with improvement in neutrophil count. No more need for any negative isolation. 5. Thrombocytopenia, most probably secondary to underlying cancer and chemotherapy. Monitor for any evidence of bleeding. 7. Normocytic normochromic anemia. We will monitor the H and H closely. Transfuse as needed. 8. Fluid, electrolytes and nutrition. Continue regular diet. 9. Deep venous thrombosis prophylaxis. Subcutaneous heparin. 10. Gastrointestinal prophylaxis. Histamine 2 receptor blockers. 11. Plan. Continue antibiotics as per infectious diseases. Obtain CT scan of the chest abdomen and pelvis with IV contrast for evaluation of any metastasis as per oncology recommendations. Case discussed with Dr. Stark. Problems: Subjective 24 Hr Interval Summary Free Text/Dictation Complains of low back pain. Exam/Review of Systems Vital Signs Vitals Vital Signs Date Time Temp Pulse Resp B/P Pulse Ox O2 Delivery O2 Flow Rate FiO2 02/25/17 07:35 99.6 87 18 118/60 100 02/21/17 08:43 Room Air Intake and Output 02/24/17 02/24/17 02/25/17 14:59 22:59 06:59 Intake Total 1860 ml 890 ml Balance 1860 ml 890 ml Exam GENERAL: This is well-built, well-nourished -[place] female lying in bed in no apparent distress. HEENT: Head normocephalic and atraumatic. Eyes: Anicteric sclerae. Conjunctivae clear. ENT: Nasal septum is midline. Oral mucosa is moist. NECK: Supple. No JVD noticed. RESPIRATORY: Bilaterally clear to auscultation. No adventitious breath sounds heard. No use of accessory muscles of respiration. CARDIAC: Regular rate and rhythm. No murmurs heard. ABDOMEN: Soft, nontender and nondistended. Bowel sounds positive in all 4 quadrants. GENITOURINARY: Deferred. EXTREMITIES: No cyanosis, no clubbing. Trace right lower extremity pedal edema. Peripheral pulses, palpable pedal pulses diminished bilaterally. 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 NEUROLOGIC: The patient is awake, alert and oriented. Cranial nerves are grossly intact. Results Result Diagram: 02/25/17 0515 02/25/17 0515 Results 24 hrs Laboratory Tests Test 02/25/17 05:15 White Blood Count 19.2 #H Red Blood Count 3.79 L Hemoglobin 12.0 Hematocrit 36.3 L Mean Corpuscular Volume 95.8 Mean Corpuscular Hemoglobin 31.7 Mean Corpuscular Hemoglobin Concent 33.1 Red Cell Distribution Width 13.8 Platelet Count 101 #L Mean Platelet Volume 11.2 H Neutrophils % 82.4 H Lymphocytes % 7.3 L Monocytes % 7.3 Eosinophils % 0.1 Basophils % 0.6 Nucleated Red Blood Cells % 0.1 H Neutrophils # 15.8 H Lymphocytes # 1.4 Monocytes # 1.4 H Eosinophils # 0.0 Basophils # 0.1 Nucleated Red Blood Cells # 0.0 Sodium Level 142 Potassium Level 4.1 Chloride Level 102 Carbon Dioxide Level 29 Anion Gap 15 Blood Urea Nitrogen 7 Creatinine 0.70 Glucose Level 98 Calcium Level 8.9 Medications Medications Current Medications Oxycodone/ Acetaminophen (Endocet (10/ 325)) 1 tab Q6H PRN PO PAIN Last administered on 02/23/17 20:52; Admin Dose 1 TAB; Start 02/18/17 at 23:30 Amlodipine Besylate (Norvasc) 10 mg DAILY PO Last administered on 02/25/17 09: 07; Admin Dose 10 MG; Start 02/19/17 at 09:00 Letrozole (Femara) 2.5 mg DAILY PO Last administered on 02/25/17 09:07; Admin Dose 2.5 MG; Start 02/19/17 at 09:00 Ondansetron HCl (Zofran Inj) 4 mg Q6H PRN IV NAUSEA AND/OR VOMITING; Start 10/25 at 23:30 Heparin Sodium (Porcine) (Heparin (5000 Units/0.5 ml)) 5,000 unit BID SC ; Start 02/19/17 at 09:00 Morphine Sulfate (morphine) 3 mg Q4H PRN IV PAIN Last administered on 03:09; Admin Dose 3 MG; Start 02/18/17 at 23:30 Acetaminophen (Tylenol Tab) 650 mg Q6H PRN PO PAIN AND OR ELEVATED TEMP; Start 02/18/17 at 23:30 Alprazolam (Xanax) 0.25 mg BID PO Last administered on 02/25/17 09:07; Admin Dose 0.25 MG; Start 02/19/17 at 21:00 Clonidine (Catapres) 0.1 mg Q4H PRN PO ELEVATED SYSTOLIC BP; Start 02/19/17 at 12:00 Hydralazine HCl (Apresoline) 5 mg Q4H PRN IV ELEVATED DIASTOLIC BP; Start 02/19 at 16:00 Magnesium Oxide (Mag-Ox 400) 400 mg BID PO Last administered on 02/25/17 09:07 ; Admin Dose 400 MG; Start 02/20/17 at 21:00 Senna/Docusate Sodium (Senokot-S) 2 tab HS PO Last administered on 02/21/17 22 :24; Admin Dose 2 TAB; Start 02/20/17 at 21:00 Lactobacillus Acidophilus/ Rhamnosus (Culturelle) 1 cap BID PO Last administered on 02/25/17 09:07; Admin Dose 1 CAP; Start 02/21/17 at 09:00 Fentanyl (Duragesic 75 Mcg/Hr Patch) 1 patch Q72H TRANSDERM Last administered on 02/24/17 17:13; Admin Dose 1 PATCH; Start 02/21/17 at 15:00 Levofloxacin 500 mg 500 mg DAILY@06 NGT Last administered on 02/25/17 05:39; Admin Dose 500 MG; Start 02/22/17 at 06:00 Vancomycin HCl/ Sodium Chloride (Vancocin/NS) 250 ml @ 83.333 mls/ hr Q12H IVPB Last administered on 02/25/17 01:58; Admin Dose 83.333 MLS/HR; Start at 14:00 Phenol (Chloraseptic Throat [place]) 2 spray Q2H PRN MT SORE THROAT; Start at 13:30 Famotidine (Pepcid) 20 mg BID PO Last administered on 02/25/17 09:07; Admin Dose 20 MG; Start 02/23/17 at 21:00 SANTOS BLAIR NP Feb 25, 2017 11:15
[2017-02-25] MEDS ORDERED: BARIUM SULF 2% 450 ML BTL (BERRY SMOOTHIE) PO ONE (12:00)
[2017-02-25] MEDS ORDERED: LORAZEPAM 2 MG INJ IV ONE (12:00)
[2017-02-25] MEDS ORDERED: IODIXANOL LOCM 100 ML BTL ONE (12:41)
[2017-02-25] MEDS ORDERED: SOD CHLORIDE 0.9% 100 ML ONE (12:41)
[2017-02-25] MEDS ORDERED: IODIXANOL LOCM 50 ML BTL ONE (12:42)
--- NOTE | 2017-02-25 12:55 | CONS ---
Date/Time of Note Date/Time of Note DATE: 02/25/17 TIME: 12:51 Assessment/Plan Assessment/Plan Chief Complaint/Hosp Course The patient is a 61 year old female well known to me with a history of stage II ER+ breast cancer status post lumpectomy, treated at [facility] with chemotherapy with TC x 4 and radiation without hormonal therapy as she declined it at that time, then was lost to follow-up, now with metastatic ER+ breast cancer to LN and liver, on Ibrance/letrozole since 07/16/17 with multiple dose reductions of ibrance (CDK 4/6 inhibitor) due to neutropenia with recent reduction in dose then cessation of Ibrance with continuation of hormonal therapy letrozole. She now is admitted with third distal right phalanx osteomyelitis, may need toe amputation. - Tumor markers have decreased/stabilized and patient had treatment response as of CT scan 10/10/16. CA 27-29 is 27 (02/20/17), down from 30 on 02/06/17. CA 15-3 normal at 16. Prognosis is fair from oncology perspective given prior treatment response and stability based on markers; pending restaging CT scan as below. - WBC 3.3 yesterday, ANC 1.3, s/p neupogen 02/24/17 with WBC 19.2 today with ANC 15.8. Cont neupogen as needed to keep ANC > 1000 given toe osteomyelitis. - Will plan for CT CAP with contrast with Ativan prior today. - May continue letrozole while in house as letrozole should not contribute to neutropenia. - Continue broad spectrum antibiotics per primary team. Plan for IV antibiotics for 6 weeks via PICC per ID, no vascular surgical intervention planned. - Patient should call to make an appointment with me in 1 week after discharge # Depression/Anxiety stable. Problems: Consultation Date/Type/Reason Admit Date/Time Feb 18, 2017 at 20:42 Initial Consult Date 02/19/17 Type of Consultation: Oncology 24 HR Interval Summary Free Text/Dictation Patient complaining of sciatica pain per RN. Patient not in room as went for CT scan. Exam/Review of Systems Vital Signs Vitals Vital Signs Date Time Temp Pulse Resp B/P Pulse Ox O2 Delivery O2 Flow Rate FiO2 02/25/17 07:35 99.6 87 18 118/60 100 02/21/17 08:43 Room Air Intake and Output 02/24/17 02/24/17 02/25/17 15:00 23:00 07:00 Intake Total 1860 ml 890 ml Balance 1860 ml 890 ml Results Result Diagram: 02/25/17 0515 02/25/17 0515 Results 24 hrs Laboratory Tests Test 02/25/17 05:15 White Blood Count 19.2 #H Red Blood Count 3.79 L Hemoglobin 12.0 Hematocrit 36.3 L Mean Corpuscular Volume 95.8 Mean Corpuscular Hemoglobin 31.7 Mean Corpuscular Hemoglobin Concent 33.1 Red Cell Distribution Width 13.8 Platelet Count 101 #L Mean Platelet Volume 11.2 H Neutrophils % 82.4 H Lymphocytes % 7.3 L Monocytes % 7.3 Eosinophils % 0.1 Basophils % 0.6 Nucleated Red Blood Cells % 0.1 H Neutrophils # 15.8 H Lymphocytes # 1.4 Monocytes # 1.4 H Eosinophils # 0.0 Basophils # 0.1 Nucleated Red Blood Cells # 0.0 Sodium Level 142 Potassium Level 4.1 Chloride Level 102 Carbon Dioxide Level 29 Anion Gap 15 Blood Urea Nitrogen 7 Creatinine 0.70 Glucose Level 98 Calcium Level 8.9 Medications Medications Current Medications Oxycodone/ Acetaminophen (Endocet (10/ 325)) 1 tab Q6H PRN PO PAIN Last administered on 02/23/17 20:52; Admin Dose 1 TAB; Start 02/18/17 at 23:30 Amlodipine Besylate (Norvasc) 10 mg DAILY PO Last administered on 02/25/17 09: 07; Admin Dose 10 MG; Start 02/19/17 at 09:00 Letrozole (Femara) 2.5 mg DAILY PO Last administered on 02/25/17 09:07; Admin Dose 2.5 MG; Start 02/19/17 at 09:00 Ondansetron HCl (Zofran Inj) 4 mg Q6H PRN IV NAUSEA AND/OR VOMITING; Start 10/25 at 23:30 Heparin Sodium (Porcine) (Heparin (5000 Units/0.5 ml)) 5,000 unit BID SC ; Start 02/19/17 at 09:00 Morphine Sulfate (morphine) 3 mg Q4H PRN IV PAIN Last administered on 03:09; Admin Dose 3 MG; Start 02/18/17 at 23:30 Acetaminophen (Tylenol Tab) 650 mg Q6H PRN PO PAIN AND OR ELEVATED TEMP; Start 02/18/17 at 23:30 Alprazolam (Xanax) 0.25 mg BID PO Last administered on 02/25/17 09:07; Admin Dose 0.25 MG; Start 02/19/17 at 21:00 Clonidine (Catapres) 0.1 mg Q4H PRN PO ELEVATED SYSTOLIC BP; Start 02/19/17 at 12:00 Hydralazine HCl (Apresoline) 5 mg Q4H PRN IV ELEVATED DIASTOLIC BP; Start 02/19 at 16:00 Magnesium Oxide (Mag-Ox 400) 400 mg BID PO Last administered on 02/25/17 09:07 ; Admin Dose 400 MG; Start 02/20/17 at 21:00 Senna/Docusate Sodium (Senokot-S) 2 tab HS PO Last administered on 02/21/17 22 :24; Admin Dose 2 TAB; Start 02/20/17 at 21:00 Lactobacillus Acidophilus/ Rhamnosus (Culturelle) 1 cap BID PO Last administered on 02/25/17 09:07; Admin Dose 1 CAP; Start 02/21/17 at 09:00 Fentanyl (Duragesic 75 Mcg/Hr Patch) 1 patch Q72H TRANSDERM Last administered on 02/24/17 17:13; Admin Dose 1 PATCH; Start 02/21/17 at 15:00 Levofloxacin 500 mg 500 mg DAILY@06 NGT Last administered on 02/25/17 05:39; Admin Dose 500 MG; Start 02/22/17 at 06:00 Vancomycin HCl/ Sodium Chloride (Vancocin/NS) 250 ml @ 83.333 mls/ hr Q12H IVPB Last administered on 02/25/17 01:58; Admin Dose 83.333 MLS/HR; Start at 14:00 Phenol (Chloraseptic Throat [place]) 2 spray Q2H PRN MT SORE THROAT; Start at 13:30 Famotidine (Pepcid) 20 mg BID PO Last administered on 02/25/17 09:07; Admin Dose 20 MG; Start 02/23/17 at 21:00 TOCARLEEN MD Feb 25, 2017 12:55 CARLEEN IZAGUIRRE MD Feb 25, 2017 12:55
--- NOTE | 2017-02-25 13:46 | RADRPT ---
PROCEDURE: CT Pulmonary Angiogram. CLINICAL INDICATION: Chest pain and shortness of breath. TECHNIQUE: CT pulmonary angiogram and a CT scan of the chest with contrast was performed. The pat ient was scanned following the uncomplicated intravenous administration of 125 cc of Visipaque 320 i ntravenous contrast. 2-D coronal reformatted images were obtained from the axial source images. In addition, 3-D post processing was performed. Total exam DLP is 976.13 mGy-cm. CTDIvol is 70.42 mG y. One or more of the following dose reduction techniques were used: Automated exposure control, ad justment of the mA and/or kV according to patient size, use of iterative reconstruction technique. COMPARISON: None available. FINDINGS: The pulmonary arteries are normal with no filling defect or lack of enhancement to suggest pulmonary artery embolism. The contrast was injected via a left arm pain and there is lack of opacification of the left axillar y and left subclavian veins consistent with occlusion. Multiple collateral veins are present around the shoulder, left side of neck, and left chest wall. There is opacification of the left brachioce phalic vein and superior vena cava. The lungs are clear. There is no pulmonary airspace or interstitial disease. There is no pulmonary nodule or mass lesion. There is no pneumothorax. There is no mediastinal or hilar lymphadenopathy or mass. The thyroid is enlarged and there is a ri ght lobe nodule inferiorly in the thyroid measuring approximately 3.0 x 2.0 cm. There is no pleural effusion. There is no pericardial effusion. The thoracic aorta is normal with no aneurysm or dissection. Images through the upper abdomen demonstrate normal visualized portions of the liver, spleen, and ad renals. There are mild degenerative changes of the spine. There is no fracture or lytic lesion. IMPRESSION: 1. Normal CT pulmonary angiogram with no evidence of pulmonary artery embolism. 2. 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 3. Enlarged thyroid with a right lobe nodule inferiorly measuring 3.0 x 2.0 cm. 4. Mild degenerative changes of the spine. RPTAT: QQ .Mayur Dash MD, MD Date Time Electronically viewed and signed by .Mayur Dash MD, MD on 02/25/2017 13:45 .R/
--- NOTE | 2017-02-25 16:34 | CONS ---
Date/Time of Note Date/Time of Note DATE: 02/25/17 TIME: 16:32 Assessment/Plan Assessment/Plan Chief Complaint/Hosp Course SUBJECTIVE: No acute changes, alert, looks comfortable MICROBIOLOGY: Blood culture negative. DIAGNOSTICS: MRI revealed right third distal phalanx osteomyelitis with cellulitis, no evidence of abscess. ANTIMICROBIALS: The patient is on IV vancomycin and Levaquin. ALLERGY: PENICILLIN. PHYSICAL EXAMINATION: GENERAL: Well-developed, obese, elderly woman who is in no distress. HEENT: Head atraumatic, normocephalic. Sclerae anicteric. Buccal mucosa dry. NECK: Supple, trachea midline. CHEST: Rise symmetrical. Breath sounds diminished. HEART: S1, S2. ABDOMEN: Soft, bowel sounds present. EXTREMITIES: Without cyanosis. ASSESSMENT: 1. Right third phalanx osteomyelitis. 2. Metastatic breast carcinoma and chemo. 3. Peripheral vascular disease. 4. Hypertension. 5. Resolving neutropenia. PLAN: The patient remains stable. No surgical intervention per podiatry, pt needs to be on IV abx for 6 weeks, vascular access is a problem, will discuss options with vascular team [facility] staff Problems: Consultation Date/Type/Reason Admit Date/Time Feb 18, 2017 at 20:42 Initial Consult Date 02/19/17 Type of Consultation: ID Exam/Review of Systems Vital Signs Vitals Vital Signs Date Time Temp Pulse Resp B/P Pulse Ox O2 Delivery O2 Flow Rate FiO2 02/25/17 07:35 99.6 87 18 118/60 100 02/21/17 08:43 Room Air Intake and Output 02/24/17 02/24/17 02/25/17 15:00 23:00 07:00 Intake Total 1860 ml 890 ml Balance 1860 ml 890 ml Results Result Diagram: 02/25/17 0515 02/25/17 0515 Results 24 hrs Laboratory Tests Test 02/25/17 05:15 White Blood Count 19.2 #H Red Blood Count 3.79 L Hemoglobin 12.0 Hematocrit 36.3 L Mean Corpuscular Volume 95.8 Mean Corpuscular Hemoglobin 31.7 Mean Corpuscular Hemoglobin Concent 33.1 Red Cell Distribution Width 13.8 Platelet Count 101 #L Mean Platelet Volume 11.2 H Neutrophils % 82.4 H Lymphocytes % 7.3 L Monocytes % 7.3 Eosinophils % 0.1 Basophils % 0.6 Nucleated Red Blood Cells % 0.1 H Neutrophils # 15.8 H Lymphocytes # 1.4 Monocytes # 1.4 H Eosinophils # 0.0 Basophils # 0.1 Nucleated Red Blood Cells # 0.0 Sodium Level 142 Potassium Level 4.1 Chloride Level 102 Carbon Dioxide Level 29 Anion Gap 15 Blood Urea Nitrogen 7 Creatinine 0.70 Glucose Level 98 Calcium Level 8.9 Medications Medications Current Medications Oxycodone/ Acetaminophen (Endocet (10/ 325)) 1 tab Q6H PRN PO PAIN Last administered on 02/23/17 20:52; Admin Dose 1 TAB; Start 02/18/17 at 23:30 Amlodipine Besylate (Norvasc) 10 mg DAILY PO Last administered on 02/25/17 09: 07; Admin Dose 10 MG; Start 02/19/17 at 09:00 Letrozole (Femara) 2.5 mg DAILY PO Last administered on 02/25/17 09:07; Admin Dose 2.5 MG; Start 02/19/17 at 09:00 Ondansetron HCl (Zofran Inj) 4 mg Q6H PRN IV NAUSEA AND/OR VOMITING; Start 10/25 at 23:30 Heparin Sodium (Porcine) (Heparin (5000 Units/0.5 ml)) 5,000 unit BID SC ; Start 02/19/17 at 09:00 Morphine Sulfate (morphine) 3 mg Q4H PRN IV PAIN Last administered on 14:15; Admin Dose 3 MG; Start 02/18/17 at 23:30 Acetaminophen (Tylenol Tab) 650 mg Q6H PRN PO PAIN AND OR ELEVATED TEMP; Start 02/18/17 at 23:30 Alprazolam (Xanax) 0.25 mg BID PO Last administered on 02/25/17 09:07; Admin Dose 0.25 MG; Start 02/19/17 at 21:00 Clonidine (Catapres) 0.1 mg Q4H PRN PO ELEVATED SYSTOLIC BP; Start 02/19/17 at 12:00 Hydralazine HCl (Apresoline) 5 mg Q4H PRN IV ELEVATED DIASTOLIC BP; Start 02/19 at 16:00 Magnesium Oxide (Mag-Ox 400) 400 mg BID PO Last administered on 02/25/17 09:07 ; Admin Dose 400 MG; Start 02/20/17 at 21:00 Senna/Docusate Sodium (Senokot-S) 2 tab HS PO Last administered on 02/21/17 22 :24; Admin Dose 2 TAB; Start 02/20/17 at 21:00 Lactobacillus Acidophilus/ Rhamnosus (Culturelle) 1 cap BID PO Last administered on 02/25/17 09:07; Admin Dose 1 CAP; Start 02/21/17 at 09:00 Fentanyl (Duragesic 75 Mcg/Hr Patch) 1 patch Q72H TRANSDERM Last administered on 02/24/17 17:13; Admin Dose 1 PATCH; Start 02/21/17 at 15:00 Levofloxacin 500 mg 500 mg DAILY@06 NGT Last administered on 02/25/17 05:39; Admin Dose 500 MG; Start 02/22/17 at 06:00 Vancomycin HCl/ Sodium Chloride (Vancocin/NS) 250 ml @ 83.333 mls/ hr Q12H IVPB Last administered on 02/25/17 13:24; Admin Dose 83.333 MLS/HR; Start at 14:00 Phenol (Chloraseptic Throat [place]) 2 spray Q2H PRN MT SORE THROAT; Start at 13:30 Famotidine (Pepcid) 20 mg BID PO Last administered on 02/25/17 09:07; Admin Dose 20 MG; Start 02/23/17 at 21:00 KIERRA WALKER NP Feb 25, 2017 16:34
[2017-02-25] MEDS: OXYCODONE/ACETAMINOPHEN (10/325) TAB PO PRN (18:00)
--- NOTE | 2017-02-25 19:47 | RADRPT ---
PROCEDURE: CT Abdomen and Pelvis with contrast. CLINICAL INDICATION: Evaluate for any metastasis, history of breast cancer TECHNIQUE: CT scan of the abdomen and pelvis with contrast was performed on a multi-detector high- resolution CT scanner. The patient was scanned following the intravenous administration of 125 cc o f Visipaque 320. Coronal and sagittal reformatted images were obtained from the axial source images . Images were reviewed on a high-resolution PACS workstation. The total exam including CTA of the ch est with contrast performed at the same time CTDI equals 70.42 +10.9 +8.53 mGy and the total exam DL P equals 976.13 mGy-cm. There is patient motion on multiple images. One or more the following dose reduction techniques were utilized: Automated exposure control, adjus tment of the mA/ or kV according to patient's size, or use of iterative reconstruction technique. COMPARISON: 06/13/2016 FINDINGS: CT abdomen: Mild dependent atelectasis in posterior lower lungs. The heart size is normal, without pericardial t hickening or effusion. There has been interval decrease in size of the mass suggestive of metastasis in the anterior segment of the right lobe of the liver now measuring approximately 2.2 x 1.9 cm. T here has been interval decrease in size of small hypodense mass in the anterior segment of the right lobe of the liver anteriorly, now measuring 5 mm. Additional previously seen small mass at the junc tion of the anterior segment right lobe and the medial segment of the left lobe seen on the previous study is not seen presently. The spleen is normal in size and homogeneous in density. The stomach is partially collapsed, but is grossly unremarkable. The pancreas as visualized is normal. The gal lbladder was unremarkable. There is appearance of mild nonspecific dilatation of the extrahepatic b ile duct with diameter approximately 7 mm. No definite adrenal mass is seen. Very small low density left renal structures too small to characterize again seen. No imaging follow-up of these is recomm ended. No abnormality of the right kidney is seen. The aorta is of normal caliber. Aortic vascular calcifications are present. There is no retroperit green lymphadenopathy. Previously seen periportal adenopathy is not seen presently. The bowel and m esentery, as visualized, are unremarkable. Moderate supraumbilical hernia containing fat only again seen. Small umbilical hernia containing fat only again seen. CT pelvis: The small bowel loops situated within the pelvis are unremarkable. The pelvic organs are normal. T here is a nonspecific 1 cm short axis left external iliac lymph node compared to previous study. Th e sigmoid colon and rectum are unremarkable. No free fluid is seen. No acute inflammation is seen. The bladder is normal. The surrounding osseous structures are remarkable for lumbar spondylosis and spinal stenosis in lumb ar spine and mild osteoarthrosis at the hips. No osteolytic or osteoblastic lesion is detected. IMPRESSION: Interval improvement in hepatic metastatic disease since previous study. Previously seen periportal adenopathy is not seen presently. Please see additional findings above. RPTAT: HJES .Delroy Hollingsworth MD, MD Date Time Electronically viewed and signed by .Delroy Hollingsworth MD, MD on 02/25/2017 19:47 .S/
[2017-02-25] MEDS: SENNA/DOCUSATE NA (8.6MG/50MG) TAB PO SCH (22:02)
[2017-02-25 22:45] VITALS: BP 98/55; RESP 18
[2017-02-26] MEDS: VANCOMYCIN 1.25 GM in SOD CHLORIDE 0.9% 250 ML IVPB SCH ×2 (02:20→13:40)
[2017-02-26 05:21] LABS: ADD SCAN DIFF NO
[2017-02-26 05:34] LABS: ABNORMAL IP MESSAGE 1; BASOPHILS % 0.2 % (0.0-2.0); EOSINOPHILS % 0.2 % (0.0-7.0); HEMATOCRIT 33.5 % (37.0-47.0); HEMOGLOBIN 10.9 g/dl (12.0-16.0); LYMPHOCYTES # 1.8 10^3/ul (0.8-2.9); LYMPHOCYTES % 10.1 % (15.0-51.0); MEAN CORPUSCULAR HEMOGLOBIN 31.9 pg (29.0-33.0); MEAN CORPUSCULAR HGB CONC 32.5 g/dl (32.0-37.0); MEAN PLATELET VOLUME 11.1 fl (7.4-10.4); MONOCYTE # 1.3 10^3/ul (0.3-0.9); MONOCYTES % 7.5 % (0.0-11.0); NEUTROPHIL # 14.2 10^3/ul (1.6-7.5); NEUTROPHILS % 80.5 % (39.0-77.0); PLATELET COUNT 98 10^3/UL (140-415); RED BLOOD COUNT 3.42 10^6/ul (4.20-5.40); RED CELL DISTRIBUTION WIDTH 14.3 % (11.5-14.5); WHITE BLOOD COUNT 17.7 10^3/ul (4.8-10.8)
[2017-02-26 05:51] LABS: MAGNESIUM 1.9 mg/dl (1.7-2.5); PHOSPHORUS 4.4 mg/dl (2.5-4.9)
[2017-02-26] MEDS: LEVOFLOXACIN 500 MG TAB NGT SCH (05:53)
[2017-02-26 05:54] LABS: CALCIUM 9.1 mg/dl (8.4-10.2); CREATININE 0.82 mg/dl (0.44-1.00)
[2017-02-26 07:20] VITALS: BP 100/57; RESP 20
[2017-02-26] MEDS: MAGNESIUM OXIDE 400 MG TAB PO SCH ×2 (08:34→20:15)
[2017-02-26] MEDS: AMLODIPINE 10 MG TAB PO SCH (08:35)
[2017-02-26] MEDS: LETROZOLE 2.5 MG TAB PO SCH (08:36)
[2017-02-26] MEDS: morphine 4 MG/ML VIAL IV PRN (08:38)
[2017-02-26] MEDS: ALPRAZOLAM 0.25 MG TAB PO SCH ×2 (08:50→20:30)
[2017-02-26] MEDS: FAMOTIDINE 20 MG TAB PO SCH ×2 (08:50→20:30)
[2017-02-26] MEDS: LACTOBACILLUS RHAMNOSUS CAP PO SCH ×2 (08:51→20:31)
[2017-02-26] MEDS: HEPARIN 5,000 UNIT/0.5 ML VIAL SC SCH ×2 (09:00→20:15)
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
--- NOTE | 2017-02-26 11:37 | PN ---
Date/Time of Note Date/Time of Note DATE: 02/26/17 TIME: 11:35 Assessment/Plan VTE Prophylaxis VTE Prophylaxis Intervention: heparin Lines/Catheters IV [facility] [place] Urinary Cath still in place: No Assessment/Plan Chief Complaint/Hosp Course 1. Right third distal phalanx or osteomyelitis with surrounding cellulitis. Continue antibiotics as per Infectious Diseases. Seen and evaluated by vascular surgery. 2. Stage II estrogen receptor positive breast cancer. Status post lumpectomy. The patient being followed by oncology. Continue letrozole. 3. Essential hypertension. Blood pressure well controlled with antihypertensives. 4. Neutropenia. Status post Neupogen with improvement in neutrophil count. No more need for any negative isolation. 5. Thrombocytopenia, most probably secondary to underlying cancer and chemotherapy. Monitor for any evidence of bleeding. 7. Normocytic normochromic anemia. We will monitor the H and H closely. Transfuse as needed. 8. Fluid, electrolytes and nutrition. Continue regular diet. 9. Deep venous thrombosis prophylaxis. Subcutaneous heparin. 10. Gastrointestinal prophylaxis. Histamine 2 receptor blockers. 11. Plan. Continue antibiotics as per infectious diseases. She needs IV access for long-term IV antibiotics. The patient is not a good candidate for PICC line or central line. The case was discussed with vascular surgery. Vascular surgery recommended to have interventional radiology put a Port-A-Cath. Case discussed with Dr. Stark. Problems: Subjective 24 Hr Interval Summary Free Text/Dictation RLE pain well controlled. Exam/Review of Systems Vital Signs Vitals Vital Signs Date Time Temp Pulse Resp B/P Pulse Ox O2 Delivery O2 Flow Rate FiO2 02/26/17 07:20 98.6 70 20 100/57 96 Intake and Output 02/25/17 02/25/17 02/26/17 15:00 23:00 07:00 Intake Total 1000 ml 1050 ml Balance 1000 ml 1050 ml Exam GENERAL: This is well-built, well-nourished -[place] female lying in bed in no apparent distress. HEENT: Head normocephalic and atraumatic. Eyes: Anicteric sclerae. Conjunctivae clear. ENT: Nasal septum is midline. Oral mucosa is moist. NECK: Supple. No JVD noticed. RESPIRATORY: Bilaterally clear to auscultation. No adventitious breath sounds heard. No use of accessory muscles of respiration. CARDIAC: Regular rate and rhythm. No murmurs heard. ABDOMEN: Soft, nontender and nondistended. Bowel sounds positive in all 4 quadrants. GENITOURINARY: Deferred. EXTREMITIES: No cyanosis, no clubbing. Trace right lower extremity pedal edema. Peripheral pulses, palpable pedal pulses diminished bilaterally. 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 NEUROLOGIC: The patient is awake, alert and oriented. Cranial nerves are grossly intact. Results Result Diagram: 02/26/17 0510 02/26/17 0510 Results 24 hrs Laboratory Tests Test 02/26/17 05:10 White Blood Count 17.7 H Red Blood Count 3.42 L Hemoglobin 10.9 L Hematocrit 33.5 L Mean Corpuscular Volume 98.0 Mean Corpuscular Hemoglobin 31.9 Mean Corpuscular Hemoglobin Concent 32.5 Red Cell Distribution Width 14.3 Platelet Count 98 L Mean Platelet Volume 11.1 H Neutrophils % 80.5 H Lymphocytes % 10.1 L Monocytes % 7.5 Eosinophils % 0.2 Basophils % 0.2 Nucleated Red Blood Cells % 0.0 Neutrophils # 14.2 H Lymphocytes # 1.8 Monocytes # 1.3 H Eosinophils # 0.0 Basophils # 0.0 Nucleated Red Blood Cells # 0.0 Sodium Level 139 Potassium Level 4.0 Chloride Level 104 Carbon Dioxide Level 30 Anion Gap 9 # Blood Urea Nitrogen 11 Creatinine 0.82 Glucose Level 124 Calcium Level 9.1 Phosphorus Level 4.4 Magnesium Level 1.9 Medications Medications Current Medications Oxycodone/ Acetaminophen (Endocet (10/ 325)) 1 tab Q6H PRN PO PAIN Last administered on 02/25/17 18:00; Admin Dose 1 TAB; Start 02/18/17 at 23:30 Amlodipine Besylate (Norvasc) 10 mg DAILY PO Last administered on 02/26/17 08: 35; Admin Dose 10 MG; Start 02/19/17 at 09:00 Letrozole (Femara) 2.5 mg DAILY PO Last administered on 02/26/17 08:36; Admin Dose 2.5 MG; Start 02/19/17 at 09:00 Ondansetron HCl (Zofran Inj) 4 mg Q6H PRN IV NAUSEA AND/OR VOMITING; Start 10/25 at 23:30 Heparin Sodium (Porcine) (Heparin (5000 Units/0.5 ml)) 5,000 unit BID SC ; Start 02/19/17 at 09:00 Morphine Sulfate (morphine) 3 mg Q4H PRN IV PAIN Last administered on 08:38; Admin Dose 3 MG; Start 02/18/17 at 23:30 Acetaminophen (Tylenol Tab) 650 mg Q6H PRN PO PAIN AND OR ELEVATED TEMP; Start 02/18/17 at 23:30 Alprazolam (Xanax) 0.25 mg BID PO Last administered on 02/26/17 08:50; Admin Dose 0.25 MG; Start 02/19/17 at 21:00 Clonidine (Catapres) 0.1 mg Q4H PRN PO ELEVATED SYSTOLIC BP; Start 02/19/17 at 12:00 Hydralazine HCl (Apresoline) 5 mg Q4H PRN IV ELEVATED DIASTOLIC BP; Start 02/19 at 16:00 Magnesium Oxide (Mag-Ox 400) 400 mg BID PO Last administered on 02/26/17 08:34 ; Admin Dose 400 MG; Start 02/20/17 at 21:00 Senna/Docusate Sodium (Senokot-S) 2 tab HS PO Last administered on 02/25/17 22 :02; Admin Dose 2 TAB; Start 02/20/17 at 21:00 Lactobacillus Acidophilus/ Rhamnosus (Culturelle) 1 cap BID PO Last administered on 02/26/17 08:51; Admin Dose 1 CAP; Start 02/21/17 at 09:00 Fentanyl (Duragesic 75 Mcg/Hr Patch) 1 patch Q72H TRANSDERM Last administered on 02/24/17 17:13; Admin Dose 1 PATCH; Start 02/21/17 at 15:00 Levofloxacin 500 mg 500 mg DAILY@06 NGT Last administered on 02/26/17 05:53; Admin Dose 500 MG; Start 02/22/17 at 06:00 Vancomycin HCl/ Sodium Chloride (Vancocin/NS) 250 ml @ 83.333 mls/ hr Q12H IVPB Last administered on 02/26/17 02:20; Admin Dose 83.333 MLS/HR; Start at 14:00 Phenol (Chloraseptic Throat [place]) 2 spray Q2H PRN MT SORE THROAT; Start at 13:30 Famotidine (Pepcid) 20 mg BID PO Last administered on 02/26/17t 08:50; Admin Dose 20 MG; Start 02/23/17 at 21:00 SANTOS BLAIR NP Feb 26, 2017 11:37
--- NOTE | 2017-02-26 15:10 | CONS ---
Date/Time of Note Date/Time of Note DATE: 02/26/17 TIME: 15:08 Assessment/Plan Assessment/Plan Chief Complaint/Hosp Course SUBJECTIVE: No acute changes, alert, feels good, ambulating in hallway, no fevers MICROBIOLOGY: Blood culture negative. DIAGNOSTICS: MRI revealed right third distal phalanx osteomyelitis with cellulitis, no evidence of abscess. ANTIMICROBIALS: The patient is on IV vancomycin and Levaquin. ALLERGY: PENICILLIN. PHYSICAL EXAMINATION: GENERAL: Well-developed, obese, elderly woman who is in no distress. HEENT: Head atraumatic, normocephalic. Sclerae anicteric. Buccal mucosa dry. NECK: Supple, trachea midline. CHEST: Rise symmetrical. Breath sounds diminished. HEART: S1, S2. ABDOMEN: Soft, bowel sounds present. EXTREMITIES: Without cyanosis. ASSESSMENT: 1. Right third phalanx osteomyelitis. 2. Metastatic breast carcinoma. 3. Peripheral vascular disease. 4. Hypertension. 5. Leukocytosis 2 to Neupogen, s/p neutropenia. PLAN: The patient remains stable. No surgical intervention per podiatry, pt needs to be on IV abx for 6 weeks, vascular access per vascular team , oncology rec-s [facility] staff Problems: Consultation Date/Type/Reason Admit Date/Time Feb 18, 2017 at 20:42 Initial Consult Date 02/19/17 Type of Consultation: id Exam/Review of Systems Vital Signs Vitals Vital Signs Date Time Temp Pulse Resp B/P Pulse Ox O2 Delivery O2 Flow Rate FiO2 02/26/17 07:20 98.6 70 20 100/57 96 Intake and Output 02/25/17 02/25/17 02/26/17 15:00 23:00 07:00 Intake Total 1000 ml 1050 ml Balance 1000 ml 1050 ml Results Result Diagram: 02/26/17 0510 02/26/17 0510 Results 24 hrs Laboratory Tests Test 02/26/17 05:10 White Blood Count 17.7 H Red Blood Count 3.42 L Hemoglobin 10.9 L Hematocrit 33.5 L Mean Corpuscular Volume 98.0 Mean Corpuscular Hemoglobin 31.9 Mean Corpuscular Hemoglobin Concent 32.5 Red Cell Distribution Width 14.3 Platelet Count 98 L Mean Platelet Volume 11.1 H Neutrophils % 80.5 H Lymphocytes % 10.1 L Monocytes % 7.5 Eosinophils % 0.2 Basophils % 0.2 Nucleated Red Blood Cells % 0.0 Neutrophils # 14.2 H Lymphocytes # 1.8 Monocytes # 1.3 H Eosinophils # 0.0 Basophils # 0.0 Nucleated Red Blood Cells # 0.0 Sodium Level 139 Potassium Level 4.0 Chloride Level 104 Carbon Dioxide Level 30 Anion Gap 9 # Blood Urea Nitrogen 11 Creatinine 0.82 Glucose Level 124 Calcium Level 9.1 Phosphorus Level 4.4 Magnesium Level 1.9 Medications Medications Current Medications Oxycodone/ Acetaminophen (Endocet (10/ 325)) 1 tab Q6H PRN PO PAIN Last administered on 02/25/17 18:00; Admin Dose 1 TAB; Start 02/18/17 at 23:30 Amlodipine Besylate (Norvasc) 10 mg DAILY PO Last administered on 02/26/17 08: 35; Admin Dose 10 MG; Start 02/19/17 at 09:00 Letrozole (Femara) 2.5 mg DAILY PO Last administered on 02/26/17 08:36; Admin Dose 2.5 MG; Start 02/19/17 at 09:00 Ondansetron HCl (Zofran Inj) 4 mg Q6H PRN IV NAUSEA AND/OR VOMITING; Start 10/25 at 23:30 Heparin Sodium (Porcine) (Heparin (5000 Units/0.5 ml)) 5,000 unit BID SC ; Start 02/19/17 at 09:00 Morphine Sulfate (morphine) 3 mg Q4H PRN IV PAIN Last administered on 08:38; Admin Dose 3 MG; Start 02/18/17 at 23:30 Acetaminophen (Tylenol Tab) 650 mg Q6H PRN PO PAIN AND OR ELEVATED TEMP; Start 02/18/17 at 23:30 Alprazolam (Xanax) 0.25 mg BID PO Last administered on 02/26/17 08:50; Admin Dose 0.25 MG; Start 02/19/17 at 21:00 Clonidine (Catapres) 0.1 mg Q4H PRN PO ELEVATED SYSTOLIC BP; Start 02/19/17 at 12:00 Hydralazine HCl (Apresoline) 5 mg Q4H PRN IV ELEVATED DIASTOLIC BP; Start 02/19 at 16:00 Magnesium Oxide (Mag-Ox 400) 400 mg BID PO Last administered on 02/26/17 08:34 ; Admin Dose 400 MG; Start 02/20/17 at 21:00 Senna/Docusate Sodium (Senokot-S) 2 tab HS PO Last administered on 02/25/17 22 :02; Admin Dose 2 TAB; Start 02/20/17 at 21:00 Lactobacillus Acidophilus/ Rhamnosus (Culturelle) 1 cap BID PO Last administered on 02/26/17 08:51; Admin Dose 1 CAP; Start 02/21/17 at 09:00 Fentanyl (Duragesic 75 Mcg/Hr Patch) 1 patch Q72H TRANSDERM Last administered on 02/24/17 17:13; Admin Dose 1 PATCH; Start 02/21/17 at 15:00 Levofloxacin 500 mg 500 mg DAILY@06 NGT Last administered on 02/26/17 05:53; Admin Dose 500 MG; Start 02/22/17 at 06:00 Vancomycin HCl/ Sodium Chloride (Vancocin/NS) 250 ml @ 83.333 mls/ hr Q12H IVPB Last administered on 02/26/17 13:40; Admin Dose 83.333 MLS/HR; Start at 14:00 Phenol (Chloraseptic Throat [place]) 2 spray Q2H PRN MT SORE THROAT; Start at 13:30 Famotidine (Pepcid) 20 mg BID PO Last administered on 02/26/17 08:50; Admin Dose 20 MG; Start 02/23/17 at 21:00 KIERRA WALKER NP Feb 26, 2017 15:10
--- NOTE | 2017-02-26 15:57 | CONS ---
Date/Time of Note Date/Time of Note DATE: 02/26/17 TIME: 15:47 Assessment/Plan Assessment/Plan Additional Assessment/Plan [facility] INITIAL INPATIENT CONSULTATION NOTE ASSESSMENT AND PLAN: A very-pleasant 61-year-old young lady, known to me from prior admission in Jun 2016, presenting with stage IV breast cancer with what I believe to be multifocal involvement of the liver. I'm awaiting further review by our radiologists, as well as multidisciplinary tumor board review, but my initial assessment is that of multifocal disease in the liver, which unfortunately is not benefited by liver resection. With above assessment, I've recommended the followin. Cont current management 2. Multidisciplinary review 3. I'll f/u with patient, likely as an outpatient, to further discuss after above 4. No indication for acute liver resection at this time Thank you very much for having me involved in the care of this very pleasant young lady and I'm certain her wonderful family. I will be available to answer any questions at [phone]. TOTAL VISIT TIME: 45 minutes of which more than half was spent in [id number] discussion with the patient, as well as coordination of care between multiple physicians and providers. Disclaimer: Inadvertent spelling and grammatical errors are likely due to EHR/ dictation software use and do not reflect on the quality of delivered patient care. Also, please note that the electronic time recorded on this node does not necessarily reflect the actual time of the visit. PLACE OF SERVICE: [facility], 2nd floor up health system DATE OF CONSULTATION: 02/26/2017 HISTORY OF PRESENT ILLNESS: The patient is a very pleasant 61-year-old young lady with past medical history significant for stage IV breast cancer with metastasis to liver, starting more than 10 years ago with stage II dz, s/p surgery and chemotherapy, lymphadenopathy after surgery for breast cancer, toe infections, and clotting issues, who was admitted to [facility] with toe infection. I was kindly asked to consult regarding possible management of her liver lesions. Today, I had a chance to visit with the patient and do a complete H&P. I also gathered some of my information through a careful review of the available data. Patient does not report any hematemesis or blood in the stool or urine. Last bowel movement was yesterday as well as flatus. No reported chronic issues with constipation or diarrhea. No changes in hearing or vision, difficulty with breathing or swallowing, prior cardiopulmonary disease new skin rashes, joint pain, musculoskeletal disease, neurologic, psychiatric, or psychologic problems. Patient reports 30 pound weight loss over the last few months. History significant for breast cancer, stage II, treated with lumpectomy and axillary lymph node dissection versus sentinel lymph node biopsy at [facility] approximately 10 years ago, possibly followed by chemotherapy. PAST MEDICAL HISTORY 1. Breast cancer, stage II, treated with lumpectomy and axillary lymph node dissection versus sentinel lymph node biopsy at [facility] approximately 10 years ago , possibly followed by chemotherapy. Right arm lymphedema that was noted right after surgery 10 years ago 2. Abdominal hernia, status post repair 3. History of toe infections 4. Atherosclerotic vascular disease 5. Hypertension 6. Neuropathy PAST SURGICAL HISTORY 1. Right breast lumpectomy and axillary lymph node dissection versus sentinel lymph node biopsy at [facility] approximately 10 years ago 2. History of second and fourth digit amputations on the right foot ALLERGIES: Penicillin with unknown reaction MEDICATIONS Carefully recorded and reviewed on the electronic chart SOCIAL HISTORY: The patient as poor social support and sparse family involvement. - Tob; - ETOH; - IVDU currently; previously positive for all 3 including crack cocaine FAMILY HISTORY: There are no significant medical, surgical or oncologic issues in the family as reported by the patient or reflected in the chart. REVIEW OF SYSTEMS: No other pertinent positives or negative in an otherwise complete 14-point review of systems PHYSICAL EXAMINATION GENERAL: The patient appears to be a very pleasant -[place] lady of non - descent lying in bed, appearing stated age, slightly overweight and otherwise in no acute distress. BMI: 24.2 (previously 25.15 Jun 2016) VITAL SIGNS: AVSS (please also see below) HEENT: Normocephalic and atraumatic. Extraocular muscles and hearing are grossly intact bilaterally and symmetrically. Sclerae are nonicteric. Oral cavity is clear; oral mucosa appear to be pink and moist. Dentition: fair. NECK: Supple. There is no lymphadenopathy or JVD. There is no submental, submandibular or supraclavicular lymphadenopathy. CHEST: Rises symmetrically with each breath; patient is breathing comfortably. There are no audible wheezes, rales or rhonchi on the gross exam. HEART: Pulse is regular and palpable on the right wrist. Capillary refill is normal. Carotid pulses are palpable bilaterally and symmetrically in the neck. EXTREMITIES: Lower extremities contain no pitting edema around the ankles bilaterally and symmetrically. ABDOMEN: Abdomen is soft, nontender and nondistended. No evidence of ascites, organomegaly, caput medusae, engorged subcutaneous veins, or other abnormalities. There are no peritoneal signs or guarding. SKIN: Appears to be pink and feels warm to touch. NEUROLOGIC: Awake, alert, and follows commands appropriately. LABORATORY DATA: See below IMAGING: See electronic chart. Please note that I've personally reviewed all pertinent available images and I agree in general with their overall reported findings. 02/25/17 CT Abd/Pelvis: Mild dependent atelectasis in posterior lower lungs. The heart size is normal, without pericardial thickening or effusion. There has been interval decrease in size of the mass suggestive of metastasis in the anterior segment of the right lobe of the liver now measuring approximately 2.2 x 1.9 cm. There has been interval decrease in size of small hypodense mass in the anterior segment of the right lobe of the liver anteriorly, now measuring 5 mm. Additional previously seen small mass at the junction of the anterior segment right lobe and the medial segment of the left lobe seen on the previous study is not seen presently. The spleen is normal in size and homogeneous in density. The stomach is partially collapsed, but is grossly unremarkable. The pancreas as visualized is normal. The gallbladder was unremarkable. There is appearance of mild nonspecific dilatation of the extrahepatic bile duct with diameter approximately 7 mm. No definite adrenal mass is seen. Very small low density left renal structures too small to characterize again seen. No imaging follow- up of these is recommended. No abnormality of the right kidney is seen. 06/13/16 CT IMPRESSION: 1. Abnormal hypodense lesion spanning segment 5 and 4B of the liver measuring 4 x 3.7 x 3.2 cm, highly concerning for neoplasm. This is amendable to percutaneous sampling. An additional 2.1 cm hypodense lesion in segment 4A and a sub-centimeter hypodense lesions elsewhere within the liver are also seen, and are nonspecific. Given the presence of adenopathy within the abdomen and pelvis, this is concerning for metastatic disease of an uncertain primary. 2. Periportal, aortocaval, and portacaval adenopathy. Enlarged bilateral iliac chain and inguinal lymph nodes. Attention on follow-up is recommended. 3. Leiomyomatous uterus. 4. Small bilateral fat containing [place]ch[place]k hernias. Moderate fat containing supraumbilical ventral abdominal hernia. Small fat containing umbilical hernia. 5. Vascular calcifications consistent with atherosclerosis. 6. Grade 1 anterolisthesis of L4-L5. 06/12/16 Breast US IMPRESSION: No sonographic findings of malignancy. Probably benign, right upper outer quadrant 1.1 cm intramammary lymph node. Correlation with bilateral routine annual mammography is recommended. BIRADS 0: Incomplete assessment. Correlation with routine annual mammography is recommended. Consultation Date/Type/Reason Admit Date/Time Feb 18, 2017 at 20:42 Psychological: no complaints Past Medical History Medical History: high cholesterol, hypertension Past Surgical History Past Surgical Hx: other (toe amputations) Social History Alcohol Use: none Smoking Status: Never smoker Drug Use: none Exam/Review of Systems Vital Signs Vitals Vital Signs Date Time Temp Pulse Resp B/P Pulse Ox O2 Delivery O2 Flow Rate FiO2 02/26/17 07:20 98.6 70 20 100/57 96 Intake and Output 02/25/17 02/25/17 02/26/17 15:00 23:00 07:00 Intake Total 1000 ml 1050 ml Balance 1000 ml 1050 ml Results Result Diagram: 02/26/17 0510 02/26/17 0510 Results 24 hrs Laboratory Tests Test 02/26/17 05:10 White Blood Count 17.7 H Red Blood Count 3.42 L Hemoglobin 10.9 L Hematocrit 33.5 L Mean Corpuscular Volume 98.0 Mean Corpuscular Hemoglobin 31.9 Mean Corpuscular Hemoglobin Concent 32.5 Red Cell Distribution Width 14.3 Platelet Count 98 L Mean Platelet Volume 11.1 H Neutrophils % 80.5 H Lymphocytes % 10.1 L Monocytes % 7.5 Eosinophils % 0.2 Basophils % 0.2 Nucleated Red Blood Cells % 0.0 Neutrophils # 14.2 H Lymphocytes # 1.8 Monocytes # 1.3 H Eosinophils # 0.0 Basophils # 0.0 Nucleated Red Blood Cells # 0.0 Sodium Level 139 Potassium Level 4.0 Chloride Level 104 Carbon Dioxide Level 30 Anion Gap 9 # Blood Urea Nitrogen 11 Creatinine 0.82 Glucose Level 124 Calcium Level 9.1 Phosphorus Level 4.4 Magnesium Level 1.9 Medications Medications Current Medications Oxycodone/ Acetaminophen (Endocet ()) 1 tab Q6H PRN PO PAIN Last administered on 02/25/17 18:00; Admin Dose 1 TAB; Start 02/18/17 at 23:30 Amlodipine Besylate (Norvasc) 10 mg DAILY PO Last administered on 02/26/17 08: 35; Admin Dose 10 MG; Start 02/19/17 at 09:00 Letrozole (Femara) 2.5 mg DAILY PO Last administered on 02/26/17 08:36; Admin Dose 2.5 MG; Start 02/19/17 at 09:00 Ondansetron HCl (Zofran Inj) 4 mg Q6H PRN IV NAUSEA AND/OR VOMITING; Start 10/25 at 23:30 Heparin Sodium (Porcine) (Heparin (5000 Units/0.5 ml)) 5,000 unit BID SC ; Start 02/19/17 at 09:00 Morphine Sulfate (morphine) 3 mg Q4H PRN IV PAIN Last administered on 08:38; Admin Dose 3 MG; Start 02/18/17 at 23:30 Acetaminophen (Tylenol Tab) 650 mg Q6H PRN PO PAIN AND OR ELEVATED TEMP; Start 02/18/17 at 23:30 Alprazolam (Xanax) 0.25 mg BID PO Last administered on 02/26/17 08:50; Admin Dose 0.25 MG; Start 02/19/17 at 21:00 Clonidine (Catapres) 0.1 mg Q4H PRN PO ELEVATED SYSTOLIC BP; Start 02/19/17 at 12:00 Hydralazine HCl (Apresoline) 5 mg Q4H PRN IV ELEVATED DIASTOLIC BP; Start 02/19 at 16:00 Magnesium Oxide (Mag-Ox 400) 400 mg BID PO Last administered on 02/26/17 08:34 ; Admin Dose 400 MG; Start 02/20/17 at 21:00 Senna/Docusate Sodium (Senokot-S) 2 tab HS PO Last administered on 02/25/17 22 :02; Admin Dose 2 TAB; Start 02/20/17 at 21:00 Lactobacillus Acidophilus/ Rhamnosus (Culturelle) 1 cap BID PO Last administered on 02/26/17 08:51; Admin Dose 1 CAP; Start 02/21/17 at 09:00 Fentanyl (Duragesic 75 Mcg/Hr Patch) 1 patch Q72H TRANSDERM Last administered on 02/24/17 17:13; Admin Dose 1 PATCH; Start 02/21/17 at 15:00 Levofloxacin 500 mg 500 mg DAILY@06 NGT Last administered on 02/26/17 05:53; Admin Dose 500 MG; Start 02/22/17 at 06:00 Vancomycin HCl/ Sodium Chloride (Vancocin/NS) 250 ml @ 83.333 mls/ hr Q12H IVPB Last administered on 02/26/17 13:40; Admin Dose 83.333 MLS/HR; Start at 14:00 Phenol (Chloraseptic Throat [place]) 2 spray Q2H PRN MT SORE THROAT; Start at 13:30 Famotidine (Pepcid) 20 mg BID PO Last administered on 02/26/17 08:50; Admin Dose 20 MG; Start 02/23/17 at 21:00 TAVO WOODWARD M.D. Feb 26, 2017 15:57
[2017-02-26 16:23] VITALS: BP 108/56; PULSE 68; RESP 14
[2017-02-26 19:30] VITALS: BP 108/59; RESP 14
[2017-02-26] MEDS: SENNA/DOCUSATE NA (8.6MG/50MG) TAB PO SCH (20:15)
[2017-02-27] MEDS: VANCOMYCIN 1.25 GM in SOD CHLORIDE 0.9% 250 ML IVPB SCH ×2 (02:08→14:38)
[2017-02-27] MEDS: LEVOFLOXACIN 500 MG TAB NGT SCH (06:00)
[2017-02-27 07:25] VITALS: BP 118/60; RESP 20
[2017-02-27] MEDS: LACTOBACILLUS RHAMNOSUS CAP PO SCH ×2 (09:00→21:01)
[2017-02-27] MEDS: HEPARIN 5,000 UNIT/0.5 ML VIAL SC SCH ×2 (09:00→21:00)
[2017-02-27] MEDS: MAGNESIUM OXIDE 400 MG TAB PO SCH ×2 (09:00→21:00)
[2017-02-27] MEDS: FAMOTIDINE 20 MG TAB PO SCH ×2 (09:24→21:01)
[2017-02-27] MEDS: AMLODIPINE 10 MG TAB PO SCH (09:24)
[2017-02-27] MEDS: ALPRAZOLAM 0.25 MG TAB PO SCH ×2 (09:24→21:01)
[2017-02-27] MEDS: LETROZOLE 2.5 MG TAB PO SCH (09:25)
[2017-02-27] MEDS: morphine 4 MG/ML VIAL IV PRN ×2 (09:44→14:17)
[2017-02-27] MEDS ORDERED: LIDOCAINE 1%/EPI 30 ML INJ ONE (11:02)
[2017-02-27] MEDS ORDERED: HEPARIN 1000 UNITS/ML 10 ML INJ ONE (11:02)
[2017-02-27] MEDS ORDERED: IOHEXOL 300MG/ML 30 ML BTL ONE (11:05)
[2017-02-27] MEDS ORDERED: CLINDAMYCIN 600 MG/50 ML D5W IVPB IVPB ONE (11:35)
[2017-02-27] MEDS ORDERED: FENTAnyl 50 MCG/ML VIAL ONE (11:55)
[2017-02-27] MEDS ORDERED: MIDAZOLAM 1 MG/ML 2 ML INJ ONE (11:55)
[2017-02-27] MEDS ORDERED: CLINDAMYCIN 600 MG/D5W (PMX) 50 ML IVPB SCH (12:00)
--- NOTE | 2017-02-27 13:26 | RADRPT ---
PROCEDURE: LEFT INTERNAL JUGULAR PORT PLACEMENT CLINICAL INDICATION: IV access for chemotherapy FLUOROSCOPY TIME: 0.1 minute TECHNIQUE: The procedure, its potential risks, benefits and alternatives were explained. Risks, including but n ot limited to pain, bleeding, infection, thrombosis, embolism and arrhythmia were discussed and und erstood. Following this discussion with the patient, informed consent was obtained. The left internal jugular vein was imaged with ultrasound and was shown to be compressible, with no evidence of thrombus. An image of this vein was obtained and saved to the PACS system. The neck and chest wall were scrubbed, draped and prepped in a sterile manner. The procedure was ca rried out under aseptic conditions. 1% lidocaine with epinephrine was utilized for local anesthesia . Following the standard prep, and under ultrasound guidance, the right internal jugular vein was punctured using anterior single wall micropuncture technique, and a micropuncture catheter was adva nced into the superior vena cava. Following this, an appropriate site on the anterior chest wall w as selected for port placement. The skin over the port placement site was then anesthetized. The s kin was then incised. Deep anesthesia was then given. Using blunt dissection technique, a pocket w as created in the subcutaneous soft tissue. Following this, a tract connecting the port pocket with the neck entry site was anesthetized. A 6 M[place]ese catheter was then pulled through the subcutaneous tract. Exchange of the micropuncture catheter was then done for a peel-away sheath. The catheter was then advanced through the sheath, the sheath was removed and the catheter was positioned with it s tip at the cavoatrial junction. Fluoroscopy was utilized to guide placement of the catheter. An im age of its final position was saved to the PACS system. The proximal end of the catheter was then tr immed and attached to a power injectable dual lumen chest wall port. The catheter and the port were then heparinized. The port was then placed within the pocket blank. The wound was then irrigated, and was dried. The wound was then closed using interrupted 3-0 Vicryl sutures, and a running subde rmal 4-0 Vicryl suture. Then over this, Dermabond was applied. A 4-0 Vicryl suture was placed to c lose the neck entry site, over which Dermabond was applied. The patient tolerated the procedure well . COMPARISON: none FINDINGS: as above. IMPRESSION: Placement of power injectable single lumen left chest wall port, as above. The catheter is ready for use. RPTAT: EE Dominguez Hannon, Physician Date Time Electronically viewed and signed by Dominguez Hannon, Physician on 02/27/2017 13:26 /
--- NOTE | 2017-02-27 13:31 | RADRPT ---
PROCEDURE: US thyroid. CLINICAL INDICATION: Nodules seen on CT TECHNIQUE: Multiple sonographic images of the thyroid were obtained utilizing a linear array trans ducer with grayscale and color-flow and a Doppler imaging. The images were reviewed on a high-res[employer] PACS workstation. COMPARISON: CT abdomen/pelvis from 02/25/2017 FINDINGS: The thyroid gland is homogeneous in echogenicity and increased in size. The right lobe measures 6.2 x 1.7 x 2.6 cm. The left lobe measures 6.3 x 2.2 x 2.4 cm. The isthmus measures 12 mm. There is a 2.7 x 1.6 cm well-circumscribed heterogeneous nodule with foci of vascular flow in the is thmus. Small cystic foci are noted within it. Right thyroid nodules: In the upper pole, there is a partially circumscribed hyperechoic nodule measuring up to 1.0 cm. In the mid pole, there is a partially circumscribed slightly hypoechoic nodule measuring up to 1.4 c m. In the lower pole, there is a well-circumscribed hyperechoic nodule measuring up to 1.1 cm. Left thyroid nodules: In the mid pole, there is a well-circumscribed round 0.8 cm nodule without vascular flow. In the upper pole, there is a well-circumscribed oval hypoechoic nodule measuring up to 1.0 cm. It is not associated with vascular flow. IMPRESSION: 2.7 cm nodule in the isthmus meets sonographic criteria for fine-needle aspiration. Multiple right-sided nodules are identified measuring up to 1.4 cm. Continued sonographic follow-up is recommended. 2 left thyroid nodules are identified measuring up to 1.0 cm which can be reevaluated on follow-up u ltrasound. Enlargement of bilateral thyroid nodules is noted. RPTAT: EE Physician Jose R Date Time Electronically viewed and signed by Physician Jose R on 02/27/2017 13:31 /
--- NOTE | 2017-02-27 15:13 | CONS ---
Date/Time of Note Date/Time of Note DATE: 02/27/17 TIME: 15:12 Assessment/Plan Assessment/Plan Chief Complaint/Hosp Course SUBJECTIVE: No acute changes, alert, feels good, no fevers Indwelling: L chest portacath DIAGNOSTICS: MRI revealed right third distal phalanx osteomyelitis with cellulitis, no evidence of abscess. ANTIMICROBIALS: The patient is on IV vancomycin and Levaquin. ALLERGY: PENICILLIN. PHYSICAL EXAMINATION: GENERAL: Well-developed, obese, elderly woman who is in no distress. HEENT: Head atraumatic, normocephalic. Sclerae anicteric. Buccal mucosa dry. NECK: Supple, trachea midline. CHEST: Rise symmetrical. Breath sounds diminished. HEART: S1, S2. ABDOMEN: Soft, bowel sounds present. EXTREMITIES: Without cyanosis. ASSESSMENT: 1. Right third phalanx osteomyelitis. 2. Metastatic breast carcinoma. 3. Peripheral vascular disease. 4. Hypertension. 5. Leukocytosis 2 to Neupogen, s/p neutropenia. PLAN: The patient remains stable. S/p [place] dc on current abx for 6 weeks, f/u podiatry/vascular/oncology rec-s, can see us in the office prn [facility] staff Problems: Consultation Date/Type/Reason Admit Date/Time Feb 18, 2017 at 20:42 Initial Consult Date 02/19/17 Type of Consultation: id Exam/Review of Systems Vital Signs Vitals Vital Signs Date Time Temp Pulse Resp B/P Pulse Ox O2 Delivery O2 Flow Rate FiO2 02/27/17 07:25 98.8 77 20 118/60 96 02/26/17 16:23 Room Air Intake and Output 02/26/17 02/26/17 02/27/17 15:00 23:00 07:00 Intake Total 960 ml 1200 ml Balance 960 ml 1200 ml Results Result Diagram: 02/26/17 0510 02/26/17 0510 Medications Medications Current Medications Oxycodone/ Acetaminophen (Endocet (10/ 325)) 1 tab Q6H PRN PO PAIN Last administered on 02/25/17 18:00; Admin Dose 1 TAB; Start 02/18/17 at 23:30 Amlodipine Besylate (Norvasc) 10 mg DAILY PO Last administered on 02/27/17 09: 24; Admin Dose 10 MG; Start 02/19/17 at 09:00 Letrozole (Femara) 2.5 mg DAILY PO Last administered on 02/27/17 09:25; Admin Dose 2.5 MG; Start 02/19/17 at 09:00 Ondansetron HCl (Zofran Inj) 4 mg Q6H PRN IV NAUSEA AND/OR VOMITING Last administered on 02/26/17 17:18; Admin Dose 4 MG; Start 02/18/17 at 23:30 Heparin Sodium (Porcine) (Heparin (5000 Units/0.5 ml)) 5,000 unit BID SC ; Start 02/19/17 at 09:00 Morphine Sulfate (morphine) 3 mg Q4H PRN IV PAIN Last administered on 14:17; Admin Dose 3 MG; Start 02/18/17 at 23:30 Acetaminophen (Tylenol Tab) 650 mg Q6H PRN PO PAIN AND OR ELEVATED TEMP; Start 02/18/17 at 23:30 Alprazolam (Xanax) 0.25 mg BID PO Last administered on 02/27/17 09:24; Admin Dose 0.25 MG; Start 02/19/17 at 21:00 Clonidine (Catapres) 0.1 mg Q4H PRN PO ELEVATED SYSTOLIC BP; Start 02/19/17 at 12:00 Hydralazine HCl (Apresoline) 5 mg Q4H PRN IV ELEVATED DIASTOLIC BP; Start 02/19 at 16:00 Magnesium Oxide (Mag-Ox 400) 400 mg BID PO Last administered on 02/26/17 08:34 ; Admin Dose 400 MG; Start 02/20/17 at 21:00 Senna/Docusate Sodium (Senokot-S) 2 tab HS PO Last administered on 02/25/17 22 :02; Admin Dose 2 TAB; Start 02/20/17 at 21:00 Lactobacillus Acidophilus/ Rhamnosus (Culturelle) 1 cap BID PO Last administered on 02/26/17 20:31; Admin Dose 1 CAP; Start 02/21/17 at 09:00 Fentanyl (Duragesic 75 Mcg/Hr Patch) 1 patch Q72H TRANSDERM Last administered on 02/24/17 17:13; Admin Dose 1 PATCH; Start 02/21/17 at 15:00 Levofloxacin 500 mg 500 mg DAILY@06 NGT Last administered on 02/26/17 05:53; Admin Dose 500 MG; Start 02/22/17 at 06:00 Vancomycin HCl/ Sodium Chloride (Vancocin/NS) 250 ml @ 83.333 mls/ hr Q12H IVPB Last administered on 02/27/17 14:38; Admin Dose 83.333 MLS/HR; Start at 14:00 Phenol (Chloraseptic Throat [place]) 2 spray Q2H PRN MT SORE THROAT; Start at 13:30 Famotidine (Pepcid) 20 mg BID PO Last administered on 02/27/17 09:24; Admin Dose 20 MG; Start 02/23/17 at 21:00 Miscellaneous Information (*Rx Drug Level Order Reminder*) VANCOMYCIN TROUGH LEVEL... ONCE ONCE XX ; Start 02/28/17 at 13:00; Stop 02/28/17 at 13:01 KIERRA WALKER NP Feb 27, 2017 15:13
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
[2017-02-27 15:30] LABS: ADD SCAN DIFF NO
[2017-02-27] MEDS: FENTAnyl PATCH 75 MCG/HR TRANSDERM SCH (15:34)
[2017-02-27 15:38] LABS: ABNORMAL IP MESSAGE 1; HEMATOCRIT 35.5 % (37.0-47.0); HEMOGLOBIN 11.2 g/dl (12.0-16.0); MEAN CORPUSCULAR HEMOGLOBIN 30.9 pg (29.0-33.0); MEAN CORPUSCULAR HGB CONC 31.5 g/dl (32.0-37.0); MEAN CORPUSCULAR VOLUME 98.1 fl (82.0-101.0); MEAN PLATELET VOLUME 10.3 fl (7.4-10.4); PLATELET COUNT 96 10^3/UL (140-415); RED BLOOD COUNT 3.62 10^6/ul (4.20-5.40); WHITE BLOOD COUNT 7.2 10^3/ul (4.8-10.8)
[2017-02-27 15:40] LABS: ALBUMIN 3.5 g/dl (3.3-4.9); INR 1.05; PROTIME 13.7 Sec (12.2-14.2); PT RATIO 1.1
[2017-02-27 15:41] LABS: PARTIAL THROMBOPLASTIN TIME 38.3 Sec (25.0-35.0); POTASSIUM 3.9 mmol/L (3.5-5.1)
[2017-02-27 15:43] LABS: ALBUMIN/GLOBULIN RATIO 0.97; BILIRUBIN,INDIRECT 0.2 mg/dl (0-1.1); BILIRUBIN,TOTAL 0.2 mg/dl (0.2-1.3); CALCIUM 9.2 mg/dl (8.4-10.2); CREATININE 0.88 mg/dl (0.44-1.00); TOTAL PROTEIN 7.1 g/dl (6.1-8.1)
--- NOTE | 2017-02-27 16:31 | PN ---
Date/Time of Note Date/Time of Note DATE: 02/27/17 TIME: 16:29 Assessment/Plan VTE Prophylaxis VTE Prophylaxis Intervention: heparin Lines/Catheters IV [facility]ter Type (from [email or web address] Portacath Urinary Cath still in place: No Assessment/Plan Chief Complaint/Hosp Course 1. Right third distal phalanx or osteomyelitis with surrounding cellulitis. Continue antibiotics as per Infectious Diseases. Seen and evaluated by vascular surgery. 2. Stage II estrogen receptor positive breast cancer. Status post lumpectomy. The patient being followed by oncology. Continue letrozole. 3. Essential hypertension. Blood pressure well controlled with antihypertensives. 4. Neutropenia. Status post Neupogen with improvement in neutrophil count. No more need for any negative isolation. 5. Thrombocytopenia, most probably secondary to underlying cancer and chemotherapy. Monitor for any evidence of bleeding. 7. Normocytic normochromic anemia. We will monitor the H and H closely. Transfuse as needed. 8. Fluid, electrolytes and nutrition. Continue regular diet. 9. Deep venous thrombosis prophylaxis. Subcutaneous heparin. 10. Gastrointestinal prophylaxis. Histamine 2 receptor blockers. 11. Plan. Continue antibiotics as per infectious diseases. Status post Port-A- Cath placement on 02/27/2017. Case management to arrange home IV antibiotic therapy before the patient can be discharged home. Case discussed with Dr. Noyola. Problems: Subjective 24 Hr Interval Summary Free Text/Dictation The patient currently has a left chest wall Por-A-Cath in place. Exam/Review of Systems Vital Signs Vitals Vital Signs Date Time Temp Pulse Resp B/P Pulse Ox O2 Delivery O2 Flow Rate FiO2 02/27/17 07:25 98.8 77 20 118/60 96 02/26/17 16:23 Room Air Intake and Output 02/26/17 02/26/17 02/27/17 15:00 23:00 07:00 Intake Total 960 ml 1200 ml Balance 960 ml 1200 ml Exam GENERAL: This is well-built, well-nourished -[place] female lying in bed in no apparent distress. HEENT: Head normocephalic and atraumatic. Eyes: Anicteric sclerae. Conjunctivae clear. ENT: Nasal septum is midline. Oral mucosa is moist. NECK: Supple. No JVD noticed. RESPIRATORY: Bilaterally clear to auscultation. No adventitious breath sounds heard. No use of accessory muscles of respiration. CARDIAC: Regular rate and rhythm. No murmurs heard. Left chest wall Port-A- Cath in place. ABDOMEN: Soft, nontender and nondistended. Bowel sounds positive in all 4 quadrants. GENITOURINARY: Deferred. EXTREMITIES: No cyanosis, no clubbing. Trace right lower extremity pedal edema. Peripheral pulses, palpable pedal pulses diminished bilaterally. 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 NEUROLOGIC: The patient is awake, alert and oriented. Cranial nerves are grossly intact. Results Result Diagram: 02/27/17 1515 02/27/17 1515 Results 24 hrs Laboratory Tests Test 02/27/17 15:15 White Blood Count 7.2 # Red Blood Count 3.62 L Hemoglobin 11.2 L Hematocrit 35.5 L Mean Corpuscular Volume 98.1 Mean Corpuscular Hemoglobin 30.9 Mean Corpuscular Hemoglobin Concent 31.5 L Red Cell Distribution Width 14.0 Platelet Count 96 L Mean Platelet Volume 10.3 Neutrophils % Lymphocytes % Monocytes % Neutrophils # Lymphocytes # Monocytes # Prothrombin Time 13.7 Prothrombin Time Ratio 1.1 INR International Normalized Ratio 1.05 Activated Partial Thromboplast Time 38.3 H Sodium Level 141 Potassium Level 3.9 Chloride Level 101 Carbon Dioxide Level 28 Anion Gap 16 # Blood Urea Nitrogen 10 Creatinine 0.88 Glucose Level 145 Calcium Level 9.2 Total Bilirubin 0.2 Direct Bilirubin 0.00 Indirect Bilirubin 0.2 Aspartate Amino Transf (AST/SGOT) 25 Alanine Aminotransferase (ALT/SGPT) 21 Alkaline Phosphatase 89 Total Protein 7.1 Albumin 3.5 Globulin 3.60 H Albumin/Globulin Ratio 0.97 Medications Medications Current Medications Oxycodone/ Acetaminophen (Endocet (10/ 325)) 1 tab Q6H PRN PO PAIN Last administered on 02/25/17 18:00; Admin Dose 1 TAB; Start 02/18/17 at 23:30 Amlodipine Besylate (Norvasc) 10 mg DAILY PO Last administered on 02/27/17 09: 24; Admin Dose 10 MG; Start 02/19/17 at 09:00 Letrozole (Femara) 2.5 mg DAILY PO Last administered on 02/27/17 09:25; Admin Dose 2.5 MG; Start 02/19/17 at 09:00 Ondansetron HCl (Zofran Inj) 4 mg Q6H PRN IV NAUSEA AND/OR VOMITING Last administered on 02/26/17 17:18; Admin Dose 4 MG; Start 02/18/17 at 23:30 Heparin Sodium (Porcine) (Heparin (5000 Units/0.5 ml)) 5,000 unit BID SC ; Start 02/19/17 at 09:00 Morphine Sulfate (morphine) 3 mg Q4H PRN IV PAIN Last administered on 14:17; Admin Dose 3 MG; Start 02/18/17 at 23:30 Acetaminophen (Tylenol Tab) 650 mg Q6H PRN PO PAIN AND OR ELEVATED TEMP; Start 02/18/17 at 23:30 Alprazolam (Xanax) 0.25 mg BID PO Last administered on 02/27/17 09:24; Admin Dose 0.25 MG; Start 02/19/17 at 21:00 Clonidine (Catapres) 0.1 mg Q4H PRN PO ELEVATED SYSTOLIC BP; Start 02/19/17 at 12:00 Hydralazine HCl (Apresoline) 5 mg Q4H PRN IV ELEVATED DIASTOLIC BP; Start 02/19 at 16:00 Magnesium Oxide (Mag-Ox 400) 400 mg BID PO Last administered on 02/26/17 08:34 ; Admin Dose 400 MG; Start 02/20/17 at 21:00 Senna/Docusate Sodium (Senokot-S) 2 tab HS PO Last administered on 02/25/17 22 :02; Admin Dose 2 TAB; Start 02/20/17 at 21:00 Lactobacillus Acidophilus/ Rhamnosus (Culturelle) 1 cap BID PO Last administered on 02/26/17 20:31; Admin Dose 1 CAP; Start 02/21/17 at 09:00 Fentanyl (Duragesic 75 Mcg/Hr Patch) 1 patch Q72H TRANSDERM Last administered on 02/27/17 15:34; Admin Dose 1 PATCH; Start 02/21/17 at 15:00 Levofloxacin 500 mg 500 mg DAILY@06 NGT Last administered on 02/26/17 05:53; Admin Dose 500 MG; Start 02/22/17 at 06:00 Vancomycin HCl/ Sodium Chloride (Vancocin/NS) 250 ml @ 83.333 mls/ hr Q12H IVPB Last administered on 4/21/17at 14:38; Admin Dose 83.333 MLS/HR; Start at 14:00 Phenol (Chloraseptic Throat [place]) 2 spray Q2H PRN MT SORE THROAT; Start at 13:30 Famotidine (Pepcid) 20 mg BID PO Last administered on 02/27/17t 09:24; Admin Dose 20 MG; Start 02/23/17 at 21:00 Miscellaneous Information (*Rx Drug Level Order Reminder*) VANCOMYCIN TROUGH LEVEL... ONCE ONCE XX ; Start 02/28/17 at 13:00; Stop 02/28/17 at 13:01 SANTOS BLAIR NP Feb 27, 2017 16:31
--- NOTE | 2017-02-27 18:00 | PDOCDIS ---
Discharge Instructions DIAGNOSIS Discharge Diagnosis: right foot cellulitis. CONDITION Patient Condition: Stable HOME CARE INSTRUCTIONS: Diet Instructions: RegularSpecial Diet: REGULAR FOLLOW UP/APPOINTMENTS Appointments Babak. Rivas DPM Specialty: Podiatry Office Address: [facility] [place] [address] Office OTHER ORDERS: Other Orders: 1. Diet as tolerated. 2. Take medications as per prescription. Complete the course of antibiotics. 3. Resume activities as tolerated. 4. Follow-up with oncology as scheduled. 5. Follow-up with Dr. Rivas in 2 weeks at the [facility]. SANTOS BLAIR NP Feb 27, 2017 18:00
[2017-02-27] MEDS ORDERED: OXYC-431 PO (18:01)
[2017-02-27] MEDS ORDERED: LEVO500T72 NGT (18:01)
[2017-02-27 20:08] VITALS: BP 106/61; RESP 18
[2017-02-27 20:14] LABS: EOSINOPHILS # 0.1 10^3/ul (0.0-0.5); LYMPHOCYTES # 1.9 10^3/ul (0.8-2.9); MONOCYTE # 0.5 10^3/ul (0.3-0.9); NEUTROPHIL # 4.6 10^3/ul (1.6-7.5)
[2017-02-27 20:15] LABS: PLATELET ESTIMATE PLT APPEAR DECREASED
[2017-02-27] MEDS: SENNA/DOCUSATE NA (8.6MG/50MG) TAB PO SCH (21:01)
[2017-02-27] MEDS: OXYCODONE/ACETAMINOPHEN (10/325) TAB PO PRN (21:03)
[2017-02-28] MEDS: VANCOMYCIN 1.25 GM in SOD CHLORIDE 0.9% 250 ML IVPB SCH (01:26)
[2017-02-28] MEDS: morphine 4 MG/ML VIAL IV PRN (02:53)
--- NOTE | 2017-03-01 04:15 | DS ---
DATE OF ADMISSION: 02/18/2017 DATE OF DISCHARGE: 02/28/2017 FINAL DIAGNOSES: 1. Right third distal phalanx osteomyelitis with surrounding cellulitis. 2. Stage II estrogen receptor positive breast cancer. 3. Essential hypertension. 4. Neutropenia, resolved. 5. Thrombocytopenia. 6. Normocytic normochromic anemia. CONSULTATIONS: 1. Dr. Gifty Carrera, oncology. 2. . Tristan Cage, infectious diseases. 3. Dr. Soy Fonseca, vascular surgery. 4. Dr. Kayden Rivas, podiatry. 5. Dr. Jason Rivas, hepatobiliary surgery. HOSPITAL COURSE: This is a 61-year-old female with past medical history of essential hypertension, metastatic breast cancer on chemotherapy, with history of amputation of second and fourth toes on the right foot due to osteomyelitis several years ago who came to the emergency room with 3 weeks of skin changes to the right 3rd toe. The patient also reported a small amount of purulent drainage. In the emergency room, MRI showed osteomyelitis of the third phalanx of the right foot. Provided the patient's history of present illness and the diagnostic findings, a clinical decision was made to admit the patient to inpatient setting to have her further evaluated. The patient was admitted to inpatient medical/surgical floor. A podiatry, vascular surgery, infectious disease, and oncology consult was called on this patient. The patient's right third distal phalanx infection was extensively evaluated by vascular surgery and podiatry. Podiatry and vascular surgery recommended long-term antibiotic therapy. The patient was maintained on antibiotics as per infectious diseases. The patient has history of stage II estrogen receptor positive breast cancer. The patient is status post lumpectomy. The patient was maintained on letrozole by the oncologist. At some point of time, the patient had neutropenia, and the patient was maintained on Neupogen with improvement in the patient's neutrophil count. The patient was maintained on reverse isolation during the period the patient was neutropenic. The patient has underlying essential hypertension. She was maintained on antihypertensives with well controlled blood pressures throughout the hospital course. The patient has underlying normocytic normochromic anemia. The patient's H and H was monitored closely. The patient did not require any blood transfusions. The patient's H and H remained stable. The patient underwent a CT scan of the abdomen, pelvis, and chest for further evaluation of any metastatic evidence of her breast cancer. The patient's CT scan of the abdomen showed interval improvement in hepatic metastatic disease since previous study. The patient was also seen by hepatobiliary surgeon during this visit, and hepatobiliary surgeon recommended continuing chemotherapy , and there is no indication for any liver resection. The patient required long -term IV antibiotic therapy, and a PICC line was ordered for long-term IV antibiotic therapy; however, PICC line was unable to be inserted because of vascular occlusions in the patient. Therefore, after consulting with vascular surgeon, a tunneled port catheter was inserted by interventional radiology on . Home health was arranged for long-term IV antibiotic therapy, and the patient was discharged home on long-term IV antibiotic therapy. The patient had a stable hospital course. The patient was cleared by consultants to be discharged home. DISCHARGE DISPOSITION AND PLAN: The patient will be discharged home today. The patient was instructed to take a regular diet as tolerated. The patient was instructed to take medications as per prescription and to complete the course of antibiotics. The patient was instructed to resume activities as tolerated. The patient was instructed to follow up with oncology as scheduled. She was instructed to follow up with Dr. Rivas in 2 weeks at the [facility]. Home health was arranged for her long-term IV antibiotic therapy. The patient verbalized understanding of her discharge instructions. CONDITION AT DISCHARGE: Stable. DISCHARGE MEDICATIONS: 1. Levofloxacin 500 mg p.o. daily (last day 04/05/2017). 2. Percocet 10/325, one tablet p.o. q. 6 hours p.r.n. pain. 3. Amlodipine 10 mg p.o. daily. 4. Aspirin 81 mg p.o. daily. 5. Letrozole 2.5 mg p.o. daily. 6. Palbociclib 75 mg p.o. daily. 7. Vancomycin IV piggyback pharmacy to dose (last day 04/05/2017). PERTINENT LABORATORY AND DIAGNOSTIC DATA: 1. Blood culture x1, negative. 2. Latest CBC: WBC 7.2, hemoglobin 11.2, hematocrit 35.5, platelet count 96. 3. Latest BMP: Sodium 141, potassium 3.9, chloride 100, carbon dioxide 28, anion gap 16, BUN 10, creatinine 0.88, glucose 145, calcium 9.0, phosphorus 4.4 , magnesium 1.9. 4. Hemoglobin A1c 5.2. 5. CT angiogram of the thorax: Normal CT pulmonary angiogram with no evidence of pulmonary artery embolism. 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 Enlarged thyroid with a right lower lobe nodule inferiorly measuring 3.0 x 2.0 cm. 6. Insertion of a tunneled catheter on 02/27/2017. 7. Thyroid ultrasound. A 2.7 cm nodule in the isthmus. Multiple right-sided nodules identified measuring up to 1.4 cm. Two left thyroid nodules are identified measuring up to 1.0 cm. Enlargement of bilateral thyroid nodules is noted. 8. CT scan of the abdomen and pelvis: Interval improvement in hepatic metastatic disease since previous study. Previously seen periportal adenopathy is not seen presently. 9. Ultrasound of bilateral upper extremities. Small diameter of left subclavian vein. No evidence of thrombus or occlusion. 10. Bilateral lower extremity arterial Doppler study. Normal bilateral lower extremity arterial Doppler. 11. Right foot MRI: Abnormal bone marrow edema and bone destruction involving the third distal phalanx of the right foot consistent with osteomyelitis with surrounding cellulitis but no evidence of extension into the distal interphalangeal joint or the third middle phalanx. Severe dorsal midfoot osteoarthrosis became the cuneiform and metatarsal bases. Previous resection involving the phalanges of the second and fourth digits. At this time, I would like to thank all the consultants for seeing the patient and providing clinical recommendations. The case and management of this patient was fully discussed with Dr. Almeida. Approximately 35 minutes was spent on coordinating the discharge on this patient. SANTOS ALMEIDA MD, AM/BETSY Conf#: [id number] DID#: [id number] MTDD
--- NOTE | 2017-03-02 07:44 | RADRPT ---
PROCEDURE: ULTRASOUND-GUIDED VASCULAR ACCESS CLINICAL INDICATION: Port-A-Cath placement TECHNIQUE: Informed consent was obtained from the patient after a discussion of the risks, benefit s, and alternatives of the procedure. Risks include, but are not limited to bleeding and infection. The left internal jugular vein was found to be patent and compressible with kim scale and power Dop pler. A picture of it was saved to the PACS. 1% lidocaine was utilized for anesthesia. Under dire ct ultrasound guidance, a 21-gauge needle was advanced into the left internal jugular vein. A wire was advanced through the micropuncture needle. The micropuncture needle was then removed over the w vincenzo and a 5-[place] catheter was advanced over the wire. COMPARISON: None. FINDINGS: Patent and compressible left internal jugular vein. IMPRESSION: Ultrasound guided vascular access for placement of a Port-A-Cath. RPTAT: EE Physician Jose R Date Time Electronically viewed and signed by Physician Jose R on 03/02/2017 07:44 /
== END 2017-02-28 05:29 | disposition home health service (06) | DRG 540 ==
LOC: E/R 11:15 → PP2 20:42
PROVIDERS: ADMIT Internal Medicine; ATTEND Internal Medicine
PROC: 02HV33Z Insertion of Infusion Device into Superior Vena Cava, Percutaneous Approach (ICD-10-PCS; principal; 2017-02-27)
PROC: B548ZZA Ultrasonography of Superior Vena Cava, Guidance (ICD-10-PCS; 2017-02-27)
DX: M86.171 Other acute osteomyelitis, right ankle and foot (principal); C77.3 Secondary and unspecified malignant neoplasm of axilla and upper limb lymph nodes; D69.59 Other secondary thrombocytopenia; C78.7 Secondary malignant neoplasm of liver and intrahepatic bile duct; D70.9 Neutropenia, unspecified; C50.911 Malignant neoplasm of unspecified site of right female breast; L03.031 Cellulitis of right toe; I10 Essential (primary) hypertension; G62.9 Polyneuropathy, unspecified; E78.5 Hyperlipidemia, unspecified; D64.9 Anemia, unspecified; F32.9 Major depressive disorder, single episode, unspecified; F41.9 Anxiety disorder, unspecified; I73.9 Peripheral vascular disease, unspecified; E83.42 Hypomagnesemia; Z17.0 Estrogen receptor positive status [ER+]; Z89.421 Acquired absence of other right toe(s); Z87.891 Personal history of nicotine dependence; Z86.718 Personal history of other venous thrombosis and embolism; Z86.711 Personal history of pulmonary embolism
CPT/HCPCS: 36561; 36569; 71275; 73660; 73718; 74177; 76536; 76937; 76942; 80048; 80053; 80202; 82306; 82746; 82962; 83036; 83735; 84100; 84145; 84443; 85025; 85610; 85651; 85730; 86300; 87040; 93922; 93970; 96372; 97162; C1769; C1788; J1644; J2060; J2250; J2270; J2405; J3010; J3370; J3475; J7050; Q9967

== ENCOUNTER 2017-03-10 15:18 | Outpatient (CLI) | payer OTHER ==
[~2017-03-10] VITALS: Ht 170.2 cm; Wt 75.5 kg
[~2017-03-10 15:18] MED LIST changes: -BUPR1PAT10 TD; -DOCU-144 PO; -FOLI-49 PO; -GABA-526 PO; -HYDR-762 PO; -HYDR25TA6 PO; +LETR2.5T PO; +LEVO500T72 NGT; -LEVO500T72 PO; +OXYC-431 PO; +PALB75CA PO; -TOPI50TA5 PO
[2017-03-10 15:21] VITALS: BP 158/74; PULSE 93; RESP 20; Ht 170.2 cm; Wt 75.5 kg
--- NOTE | 2017-03-10 15:38 | PN ---
Date/Time of Note Date/Time of Note DATE: 03/10/17 TIME: 15:33 Outpatient Progress Note Chief Complaint Osteomyelitis/CA breast/hypertension/neutropenia and thrombocytopenia HPI Osteomyelitis/patient has right foot third phalanx osteomyelitis, no fever chill , slight discomfort, patient on IV antibiotic, CA breast/patient has a right breast cancer, patient on chemotherapy, patient chemotherapy on hold at present because of antibiotic, Hypertension/no headache or dizziness or lightheadedness, blood pressure minimally elevated, Neutropenia and thrombocytopenia/patient has neutropenia and thrombocytopenia, patient had been on chemotherapy before, Review of Systems Const: No Fever, no chills, no Wt. loss, no Fatigue, normal appetite, no diaphoresis. Eyes: No pain, no discharge, no redness, no visual change, no foreign body. ENT: No pain, no bleeding, no congestion, no sore throat, no dysphagia, no discharge or rhinitis. Lymph: No adenopathy, no tender nodes, no lymphedema. Resp: No SOB, no cough, no sputum, no wheezing, no chest pain. CV: No chest pain, no palpitaions, no PARRA, no PND, no edema. GI: Normal appetite, no pain, no nausea, no vomiting, no diarrhea, no blood, no constipation. : No frequency, no urgency, no dysuria, no hematuria, no flank pain, no discharge, no bleeding. Musc: No bone/joint pain, no back pain, no neck pain, no knee pain, no restricted ROM. Skin: No rash, no skin lesions, no erythema, no laceration, no bruising, no pruritus. Neuro: No GAMINO, no dizziness, no syncope, no seizure, no focal-weakness. Endo: No polyuria, no polydypsia, no dry-skin, no temp-intolerance. Psych: No hallucinations, no depression, no anxiety, no suicidal ideation. Ext: Mild bilateral ankle edema, no pain, no ulcer, no weakness. Physical Exam General Appearance: A [61 year-old [female] who appears well-developed, well- nourished, in no acute distress. HEENT: Head normocephalic, atraumatic. Pupils equal, round, reactive to light and accommodate. Sclerae are no jaundice. Nasal turbinates pink without erythema or nasal discharge. Mucous membranes pink and moist without lesions. Oropharynx clear without any exudate or discharge. NECK: Supple. Trachea midline, No thyromegaly, No cervical lymphadenopathy, No mass, No carotid bruits, No JVD, Carotid pulses 2+ bilaterally. PULMONARY: Clear to auscultaion bilaterally, No retractions, Chest expansion symmetric bilaterally, no rales, no ronchi, no dulness on percussion. CARDIAC: Normal SI and S2, Regular rate and rythm, no murmur, gallop, or rub., Patient has small thrombosis in left hand, secondary to line, slight discomfort, GASTROINTESTINAL: Abdomen is soft, non-tender, Non Rigid, No distention, Positive bowel sounds x4 quadrants, Liver normal. SKIN: Warm, dry, no rash, no bruise, no echmosis EXTREMITIES: Bilateral lower extremities minimal ankle edema, patient has osteomyelitis of right foot third toe, second and fourth toe amputated, no phlabitus, pulse palpable, no contracture. MUSCULOSKELETAL: Spine Normal, Non-tender, Normal range of motion, No swelling, no deformity, no clubbing, or cyanosis, the patient has no edema to bilateral lower extremities, dorsalis pedis pulses palpable bilaterally. NEUROLOGIC: The patient is awake, alert, oriented, responding to yes/no questions appropriately, moving all extremities, cranial nerve intact, normal strenght, normal power, normal coordination, normal gait. Allergies Coded Allergies: Penicillins (Verified Allergy, Unknown, SWELLING, 02/18/17) PMH Hypertension/CA breast/osteomyelitis left foot, Amputation of the second and fourth right foot toe, Social Hx No smoking or drinking, Family Hx Noncontributory Patient History: FH: heart attack Assessment/Plan Impression Osteomyelitis right foot third toe/CA breast right side with metastases/ hypertension/neutropenia/thrombocytopenia Plan Patient lab reviewed, patient education done, Patient has all the medication, Patient is getting IV antibiotic, Patient encouraged to follow with the primary care physicians, Will need to repeat lab next time, Patient encouraged to monitor her temperature, if any fever or any chills or change in status, to let us know, Medications Home Meds Active Scripts Oxycodone HCl/Acetaminophen (Oxycodone-Acetaminophen 10-325) 1 Each Tablet, 1 TAB PO Q6H Y for PAIN, #30 TAB Prov:SANTOS BLAIR [employer] 02/27/17 Levofloxacin* (Levaquin*) 500 Mg Tablet, 500 MG NGT DAILY@06 for 38 Days, TAB Prov:YEYOHENRIKSANTOS [employer] 02/27/17 Reported Medications Letrozole* (Letrozole*) 2.5 Mg Tablet, 2.5 MG PO DAILY, TAB 02/18/17 Palbociclib (Ibrance) 75 Mg Capsule, 75 MG PO DAILY, #21 02/18/17 Aspirin* (Aspirin* EC) 81 Mg Tablet.dr, 81 MG PO DAILY, TAB 06/10/16 Amlodipine Besylate* (Amlodipine Besylate*) 10 Mg Tablet, 10 MG PO DAILY 07/21/11 REGINALDO LIU MD March 10, 2017 15:38
== END 2017-03-10 17:00 | disposition home or self-care (01) ==
LOC: DCC 15:18
PROVIDERS: ATTEND Internal Medicine
DX: M86.8X7 Other osteomyelitis, ankle and foot (principal); I10 Essential (primary) hypertension; C50.911 Malignant neoplasm of unspecified site of right female breast; C79.9 Secondary malignant neoplasm of unspecified site; D70.9 Neutropenia, unspecified; D69.6 Thrombocytopenia, unspecified

== ENCOUNTER 2017-03-24 11:22 | Outpatient (CLI) | payer OTHER ==
[~2017-03-24] VITALS: Ht 170.2 cm; Wt 75.5 kg
[2017-03-24 11:24] VITALS: BP 158/74; PULSE 80; RESP 18; Ht 170.2 cm; Wt 75.5 kg
--- NOTE | 2017-03-24 12:03 | PN ---
Date/Time of Note Date/Time of Note DATE: 03/24/17 TIME: 11:58 Outpatient Progress Note Chief Complaint Osteomyelitis/CA breast/hypertension/neutropenia HPI Osteomyelitis/patient has osteomyelitis of right foot, patient on still on antibiotic, no fever chill, CA breast/patient has CA breast, no pain, no bleeding or discharge, no axillary pain or swelling, patient is followed by oncologist, Neutropenia/patient has neutropenia, no fever chill, Review of Systems Const: No Fever, no chills, no Wt. loss, no Fatigue, normal appetite, no diaphoresis. Eyes: No pain, no discharge, no redness, no visual change, no foreign body. ENT: No pain, no bleeding, no congestion, no sore throat, no dysphagia, no discharge or rhinitis. Lymph: No adenopathy, no tender nodes, no lymphedema. Resp: No SOB, no cough, no sputum, no wheezing, no chest pain. CV: No chest pain, no palpitaions, no PARRA, no PND, no edema. GI: Normal appetite, no pain, no nausea, no vomiting, no diarrhea, no blood, no constipation. No suprapubic discomfort or distention, : No frequency, no urgency, no dysuria, no hematuria, no flank pain, no discharge, no bleeding. Musc: No bone/joint pain, no back pain, no neck pain, no knee pain, no restricted ROM. Skin: No rash, no skin lesions, no erythema, no laceration, no bruising, no pruritus. Neuro: No GAMINO, no dizziness, no syncope, no seizure, no focal-weakness. Endo: No polyuria, no polydypsia, no dry-skin, no temp-intolerance. Psych: No hallucinations, no depression, no anxiety, no suicidal ideation. Ext: No edema, no pain, no ulcer, no weakness. Physical Exam Vital Signs Date Time Temp Pulse Resp B/P Pulse Ox O2 Delivery O2 Flow Rate FiO2 03/24/17 11:24 98.1 80 18 158/74 95 Room Air General Appearance: A 61 year-old female who appears well-developed, well- nourished, in no acute distress. HEENT: Head normocephalic, atraumatic. Pupils equal, round, reactive to light and accommodate. Sclerae are no jaundice. Nasal turbinates pink without erythema or nasal discharge. Mucous membranes pink and moist without lesions. Oropharynx clear without any exudate or discharge. NECK: Supple. Trachea midline, No thyromegaly, No cervical lymphadenopathy, No mass, No carotid bruits, No JVD, Carotid pulses 2+ bilaterally. PULMONARY: Clear to auscultaion bilaterally, No retractions, Chest expansion symmetric bilaterally, no rales, no ronchi, no dulness on percussion. CARDIAC: Normal SI and S2, Regular rate and rythm, no murmur, gallop, or rub. GASTROINTESTINAL: Abdomen is soft, non-tender, Non Rigid, No distention, Positive bowel sounds x4 quadrants, Liver normal. SKIN: Warm, dry, no rash, no bruise, no echmosis. EXTREMITIES: Bilateral lower extremities normal, no edema, no phlabitus, pulse palpable, no contracture. Patient has osteomyelitis of the right foot third toe , second and fourth toe amputated, MUSCULOSKELETAL: Spine Normal, Non-tender, Normal range of motion, No swelling, no deformity, no clubbing, or cyanosis, the patient has no edema to bilateral lower extremities, dorsalis pedis pulses palpable bilaterally. NEUROLOGIC: The patient is awake, alert, oriented, responding to yes/no questions appropriately, moving all extremities, cranial nerve intact, normal strenght, normal power, normal coordination, normal gait. Allergies Coded Allergies: Penicillins (Verified Allergy, Unknown, SWELLING, 02/18/17) PMH No change Social Hx No change Family Hx No change Patient History: FH: heart attack Assessment/Plan Impression Osteomyelitis/right foot CA of breast Neutropenia/thrombocytopenia Plan Continue all medication, and supportive care, patient is going to follow with oncologist, CBC CMP, will send a copy to oncologist, Patient falso need to see primary care physician,, Patient education done about above diseases, patient still has antibiotic, patient will follow through primary care physician after finishing the antibiotic, Medications Home Meds Reported Medications Letrozole* (Letrozole*) 2.5 Mg Tablet, 2.5 MG PO DAILY, TAB 02/18/17 Palbociclib (Ibrance) 75 Mg Capsule, 75 MG PO DAILY, #21 02/18/17 Aspirin* (Aspirin* EC) 81 Mg Tablet., 81 MG PO DAILY, TAB 06/10/16 Amlodipine Besylate* (Amlodipine Besylate*) 10 Mg Tablet, 10 MG PO DAILY 07/21/11 Discontinued Scripts Oxycodone HCl/Acetaminophen (Oxycodone-Acetaminophen 10-325) 1 Each Tablet, 1 TAB PO Q6H Y for PAIN, #30 TAB Prov:SANTOS BLAIR NP 02/27/17 Levofloxacin* (Levaquin*) 500 Mg Tablet, 500 MG NGT DAILY@06 for 38 Days, TAB Prov:SANTOS BLAIR NP 02/27/17 REGINALDO LIU MD March 24, 2017 12:03
== END 2017-03-24 16:51 | disposition home or self-care (01) ==
LOC: DCC 11:22
PROVIDERS: ATTEND Internal Medicine
DX: M86.8X7 Other osteomyelitis, ankle and foot (principal); C50.919 Malignant neoplasm of unspecified site of unspecified female breast; D69.6 Thrombocytopenia, unspecified

== ENCOUNTER → 2017-09-02 | Outpatient (CLI) | payer OTHER ==
[~2017-09-02] MED LIST changes: -LEVO500T72 NGT; -OXYC-431 PO
--- NOTE | 2017-09-02 15:22 | RADRPT ---
PROCEDURE: US bilateral lower extremity veins. CLINICAL INDICATION: Bilateral leg pain and swelling. History of deep venous thrombosis in 2010. TECHNIQUE: Multiple longitudinal and transverse images of the bilateral lower extremity veins were obtained with kim scale and color Doppler imaging. The common femoral vein, femoral vein, and popl iteal vein were evaluated. 2D grayscale measurements with compression sonography, color Doppler, and pulsed Doppler with augmentation. COMPARISON: No prior studies are available for comparison. FINDINGS: The bilateral common femoral, femoral and popliteal veins are normally compressible throughout. Col or flow demonstrates normal filling of the vessels. Normal waveforms are visualized and there is no rmal response to augmentation. IMPRESSION: 1. No evidence of deep vein thrombosis involving either lower extremity. RPTAT: QQ .Mayur Dash MD, Date Time Electronically viewed and signed by .Mayur Dash MD, on 09/02/2017 15:22 .R/
== END | disposition home or self-care (01) ==
LOC: VAS 12:55
PROVIDERS: ATTEND Internal Medicine Hematology & Oncology
DX: D68.59 Other primary thrombophilia (principal)
CPT/HCPCS: 93970

== ENCOUNTER 2018-02-11 01:36 | Inpatient (IN) | END 2018-02-13 17:47 | disposition home health service (06) | DRG 593 ==

== ENCOUNTER 2018-09-14 14:36 | Day surgery (SDC) | END 2018-09-14 18:35 | disposition home or self-care (01) ==